=== PATIENT | male | born 1935 | race Caucasian/White ===

== ENCOUNTER 2016-05-26 15:30 | Emergency (ER) | payer OTHER, BC ==
[2016-05-26 15:55] VITALS: TEMP 98.5; BMI 24.2
[2016-05-26] MEDS ORDERED: SODIUM CHLORIDE 500 ML IV STA (17:29)
--- NOTE | 2016-05-26 17:31 | PDOC ---
History of Present Illness - General History Source: Patient - History of Present Illness Initial Comments: 05/26/16 18:59 The patient is a 81 year old male with a significant past medical history of parkinsons disease who presents to the Emergency Department with complaints of cough, cold-like symptoms, and one episode of confusion yesterday. Pt reports experiencing watery cough and nasal congestion for a week. As per his , the patient has been confused and forgetful for weeks, but it has been worse for the past week. She reports unsteady gait yesterday, but she states that the pt could take few steps today without loss of balance. Pt denies fever, chills, sweats, abdominal pain, nausea, vomiting, diarrhea, urinary problems, back pain, dizziness, headache. (+) sick contact: has cold-like symptoms <Kina Berry - Last Filed: 05/26/16 18:59> <Emeterio Manuel - Last Filed: 05/26/16 19:22> - General Chief Complaint: Altered Mental Status Stated Complaint: COUGH, COLD (CONFUSION) Time Seen by Provider: 05/26/16 16:36 Past History <Kina Berry - Last Filed: 05/26/16 18:59> - Past Medical History Cancer: Yes (prostate,skin) Other medical history: parkinson - Surgical History Cholecystectomy: Yes - Immunization History Immunization Up to Date: Yes - Psycho/Social/Smoking Cessation Hx Anxiety: No Suicidal Ideation: No Smoking History: Never smoked Have you smoked in the past 12 months: No Information on smoking cessation initiated: No Hx Alcohol Use: No Drug/Substance Use Hx: No Substance Use Type: None <Emeterio Manuel - Last Filed: 05/26/16 19:22> - Past Medical History Allergies/Adverse Reactions: Allergies Allergy/AdvReac Type Severity Reaction Status Date / Time No Known Allergies Allergy Verified 05/26/16 15:50 Home Medications: Ambulatory Orders Carbidopa/Levodopa [Sinemet 10-100 mg Tablet] 1 each PO ASDIR 05/26/16 Doxazosin Mesylate [Cardura -] 0 mg PO ASDIR 05/26/16 Solifenacin Succinate [Vesicare -] 0 mg PO ASDIR 05/26/16 Review of Systems - Review of Systems Able to Perform ROS?: Yes Comments:: 05/26/16 19:00 CONSTITUTIONAL: No reported: Fever, Chills, Diaphoresis, Generalized Weakness, Malaise, Loss of Appetite HEENT: Yes: nasal congestion No reported: Rhinorrhea, Throat Pain, Throat Swelling, Difficulty Swallowing, Mouth Swelling, Ear Pain, Eye Pain, Visual Changes CARDIOVASCULAR: No reported: Chest Pain, Syncope, Palpitations, Irregular Heart Rate, Lightheadedness, Peripheral Edema RESPIRATORY: Yes: cough No reported: Shortness of Breath, SOB with Exertion, Orthopnea, Wheezing, Stridor, Hemoptysis GASTROINTESTINAL: No reported: Abdominal pain, Abdominal Distension, Nausea, Vomiting, Diarrhea, Constipation, Melena, Hematochezia GENITOURINARY: No reported: Dysuria, Frequency, Urgency, Hesitancy, Flank Pain, Genital Pain MUSCULOSKELETAL: No reported: Myalgia, Arthralgia, Joint Swelling, Back pain, Neck Pain SKIN: No reported: Rash, Itching, Pallor HEMEATOLOGIC/IMMUNOLOGIC: No reported: Easy Bleeding, Easy Bruising, Lymphadenopathy, Frequent infections ENDOCRINE: No reported: Unexplained Weight Gain, Unexplained Weight Loss, Heat Intolerance , Cold Intolerance NEUROLOGIC: Yes: confusion No reported: Headache, Focal Weakness, Paresthesias, Vertigo, Lightheadedness, Unsteady Gait, Seizure, Incontinence PSYCHIATRIC: No reported: Anxiety, Depression All Other Systems: Reviewed and Negative <Kina Berry - Last Filed: 05/26/16 18:59> *Physical Exam - Vital Signs Last Vital Signs Temp Pulse Resp BP Pulse Ox 98.5 F 74 20 105/58 97 05/26/16 15:51 05/26/16 15:51 05/26/16 15:51 05/26/16 15:51 05/26/16 15:51 - Physical Exam Comments: 05/26/16 19:00 GENERAL: The patient is awake, alert, and fully oriented x3, Nontoxic - in no acute distress. HEAD: Normocephalic, atraumatic. EYES: extraocular movements intact, sclera anicteric, conjunctiva clear. ENT: Normal voice, Moist mucous membranes, +nasal congestion NECK: Normal range of motion, supple LUNGS: no acute disress, no wheezing/rhonchi, intermittent spasms of coughing HEART: Regular rate and rhythm, normal S1 and S2 without murmur, rub or gallop. ABDOMEN: Soft, nontender, normoactive bowel sounds. No guarding, no rebound. .No CVA tenderness EXTREMITIES: Normal range of motion, no edema. No clubbing or cyanosis. No cords, erythema, or tenderness. NEUROLOGICAL: Normal speech, strength symemtric in upper/lower extremities, shuffling gait, cn 2-12 intact PSYCH: flat affect SKIN: Warm, Dry, normal turgor, <Kina Berry - Last Filed: 05/26/16 18:59> - Vital Signs Last Vital Signs Temp Pulse Resp BP Pulse Ox 98.5 F 74 20 105/58 97 05/26/16 15:51 05/26/16 15:51 05/26/16 15:51 05/26/16 15:51 05/26/16 15:51 <Emeterio Manuel - Last Filed: 05/26/16 19:22> Heart Score/ECG Review - ECG Impressions Comment:: 05/26/16 19:20 Twelve-lead EKG was performed and reviewed by me. There is normal sinus rhythm with a normal rate. Rate of 69 The intervals are normal. There is normal R wave progression There are no ST or T wave abnormalities. Impression: Normal twelve-lead EKG <Emeterio Manuel - Last Filed: 05/26/16 19:22> ED Treatment Course - LABORATORY CBC & Chemistry Diagram: 05/26/16 17:17 05/26/16 17:17 - ADDITIONAL ORDERS Additional order review: Laboratory Results 05/26/16 05/26/16 18:22 17:17 Sodium 142 Potassium 4.3 Chloride 102 Carbon Dioxide 29 Anion Gap 11 BUN 21 H Creatinine 0.9 Creat Clearance w eGFR > 60 Random Glucose 85 Calcium 8.6 Total Bilirubin 0.4 AST 13 L ALT 11 L Alkaline Phosphatase 36 L Total Protein 6.7 Albumin 3.8 Urine Color Erika Urine Appearance Slcloudy Urine pH 5.0 Ur Specific [place] 1.025 Urine Protein Negative Urine Glucose (UA) Negative Urine Ketones Trace H Urine Blood 2+ H Urine Nitrite Negative Urine Bilirubin Negative Urine Urobilinogen Negative Ur Leukocyte Esterase Negative Urine RBC 168 Urine WBC 1 Ur Epithelial Cells Rare Urine Mucus Few 05/26/16 17:17 Influenza Types A,B Antigen (ROSA) - Final Nasopharyngeal Swab - Final 01/06/17 17:17 RBC 4.14 MCV 95.5 MCHC 32.6 RDW 13.5 MPV 9.3 Neutrophils % 61.6 Lymphocytes % 21.0 Monocytes % 16.4 H Eosinophils % 0.4 Basophils % 0.6 - Medications Given in the ED: ED Medications Discontinued Medications Generic Name Dose Route Start Last Admin Trade Name Lisa PRN Reason Stop Dose Admin Sodium Chloride 500 mls @ 500 mls/hr 05/26/16 17:29 05/26/16 17:36 Normal Saline - IV 05/26/16 18:28 500 mls/hr ASDIR STA Administration <Kina Berry - Last Filed: 05/26/16 18:59> - LABORATORY CBC & Chemistry Diagram: 05/26/16 17:17 05/26/16 17:17 - RADIOLOGY Radiology Studies Ordered: Category Date Time Status HEAD CT WITHOUT CONTRAST [CT] Stat CT Scan 05/26/16 17:29 Ordered CHEST X-RAY PORTABLE* [RAD] Stat Radiology 05/26/16 16:37 Completed <Emeterio Manuel - Last Filed: 05/26/16 19:22> Medical Decision Making - Medical Decision Making 05/26/16 17:36 81y M presenting with cough, ansal congestion and episode of confusion yesterday , though the pts family states he has been having increasing forgetfullness. pt seems back to baseline today. on exam the pt in no acute disress,has mild nasal discharge, pulm exam wnl ?flu, intact neuro exam, mild rigidity and shuffling gait. will ck labs, cxr, ua, ct head will reassess A portion of this note was documented by scribe services under my direction. I have reviewed the details of the note, within reason, and agree with the documentation with the following case summary and management plan written by me 05/26/16 18:58 the pts labs are reviewed unremarkable ua +hematuri but not c'w infection cxr clear influenza negative ct pending 05/26/16 19:15 CT engative will d/c the pt to fu with dr. calhoun for reevaluation and fu of hematuria likely URI/flu like illness. I discussed the physical exam findings, ancillary test results and final diagnoses with the patient. I answered all of the patient's questions. The patient was satisfied with the care received and felt comfortable with the discharge plan and treatment plan. The patient will call their primary care physician within 24 hours to arrange follow-up and will return to the Emergency Department with any new, persistent or worsening symptoms. <Emeterio Manuel - Last Filed: 05/26/16 19:22> *DC/Admit/Observation/Transfer - Attestations Scribe Attestion: 05/26/16 19:01 Documentation prepared by Kina Berry, acting as medical assistant instructor for Emeterio Manuel MD. <Kina Berry - Last Filed: 05/26/16 18:59> - Discharge Dispostion Admit: No <Emeterio Manuel - Last Filed: 05/26/16 19:22> Diagnosis at time of Disposition: Hematuria Upper respiratory infection Qualifiers: URI type: unspecified viral URI Qualified Code(s): J06.9 - Acute upper respiratory infection, unspecified - Discharge Dispostion Disposition: HOME Condition at time of disposition: Improved - Referrals Referrals: Jaya Miller MD [Primary Care Provider] - - Patient Instructions Printed Discharge Instructions: DI for Viral Upper Respiratory Infection -- Adult Additional Instructions: Return to the emergency department immediately with ANY new, persistent or worsening symptoms. There was blood found a new urine please follow-up with Dr. Powell to repeat your urine, if there is persistence bloody urine you may need to see a urologist for further evaluation You MUST call and follow up with your doctor tomorrow for further evaluation of your symptoms. Results were discussed with you. Please make sure your doctor reviews the results of your emergency evaluation. Print Language: BULGARIAN
[2016-05-26 17:35] LABS: BASOPHIL 0.6 % (0-2.0); EOSINOPHIL 0.4 % (0-4.5); MCH 31.2 pg (25.7-33.7); MCHC 32.6 g/dl (32.0-35.9); MEAN CELL VOLUME 95.5 fl (80-96); MEAN PLT VOLUME 9.3 fl (7.5-11.1); NEUTROPHILS 61.6 % (42.8-82.8); PLATELET COUNT 182 K/MM3 (134-434); RDW 13.5 % (11.9-15.9)
[2016-05-26 17:58] LABS: ALBUMIN 3.8 g/dl (3.4-5.0); ANION GAP 11 (8-16); BILIRUBIN,TOTAL 0.4 mg/dL (0.2-1.0); CALCIUM 8.6 mg/dL (8.5-10.1); CO2 29 mmol/L (21-32); CREATININE 0.9 mg/dL (0.7-1.3); GLUCOSE,RANDOM 85 mg/dL (74-106); SGOT/AST 13 U/L (15-37); SGPT/ALT 11 U/L (12-78); TOT PROT 6.7 g/dl (6.4-8.2)
[2016-05-26 17:59] LABS: ALK PHOS 36 U/L (45-117)
[2016-05-26 18:36] LABS: URINE APPEARANCE SLCLOUDY; URINE BILIRUBIN NEGATIVE (NEGATIVE); URINE COLOR AMBER; URINE GLUCOSE (UA) NEGATIVE (NEGATIVE); URINE KETONE TRACE (NEGATIVE); URINE LEUK ESTERASE NEGATIVE (NEGATIVE); URINE NITRITE NEGATIVE (NEGATIVE); URINE PROTEIN NEGATIVE (NEGATIVE); URINE UROBILINOGEN NEGATIVE E.U./dl (0.2-1.0)
[2016-05-26 18:42] LABS: URINE BLOOD 2+ (NEGATIVE)
[2016-05-26 18:46] LABS: URINE MUCUS FEW; URINE RBC 168 /hpf (0-3); URINE WBC 1 /hpf (3-5)
[2016-05-26 19:28] VITALS: BP 113/48; PULSE 82
--- NOTE | 2016-05-27 23:41 | EKG ---
Test Reason : Blood Pressure : / mmHG Vent. Rate : 069 BPM Atrial Rate : 069 BPM P-R Int : 172 ms QRS Dur : 072 ms QT Int : 386 ms P-R-T Axes : 050 -03 025 degrees QTc Int : 413 ms NORMAL SINUS RHYTHM NORMAL ECG WHEN COMPARED WITH ECG OF 20-SEP-2002 08:47, QUESTIONABLE CHANGE IN QRS AXIS Confirmed by ZEFERINO SILVA MD ([id number]) on 05/27/2016 11:40:35 PM Referred By: Confirmed By:ZEFERINO SILVA MD
== END 2016-05-26 19:28 | disposition home or self-care (01) ==
LOC: SUPCPDRO 15:30 → JER 15:30
PROC: 3E0337Z Introduction of Electrolytic and Water Balance Substance into Peripheral Vein, Percutaneous Approach (ICD-10-PCS; principal; 2016-05-26)
DX: J06.9 Acute upper respiratory infection, unspecified (principal); R31.9 Hematuria, unspecified; G20 Parkinson's disease
CPT/HCPCS: 36415; 70450-TC; 71010-TC; 80053; 81003; 81015; 85025; 87804; 93005; 93010; 96360; 99283-25

== ENCOUNTER 2016-06-02 18:21 | Inpatient (IN) | payer OTHER, BC ==
--- NOTE | 2016-06-02 19:36 | PDOC ---
History of Present Illness - General Chief Complaint: Injury Stated Complaint: FALL Time Seen by Provider: 06/02/16 19:21 - History of Present Illness Initial Comments: 06/02/16 19:35 CHIEF COMPLAINT: fall HISTORY OF PRESENT ILLNESS: 81 yo M with hx of Parkinson's presents to ED s/p fall outside of his home today. Per patient family, he has been a little confused and more prone to falling in recent weeks. He was walking behind his into his house today and fell on the sidewalk. Patient states he did not lose consciousness, but is unsure of whether or not he hit his head. He states that "I was calling for help for a long time before someone was able to come help me into the house." He is unable to describe where his pain is, but repeatedly motions to his left thigh. He denies any dizziness, nausea, vomiting , shortness of breath, or chest pain. No recent travel or sick contacts. PAST MEDICAL HISTORY: Parkinson's FAMILY HISTORY: Denies SOCIAL HISTORY: Lives at home with family. Denies tobacco, alcohol, illicit drug use. SURGICAL HISTORY: Denies ALLERGIES: No known drug allergies REVIEW OF SYSTEMS - patient is poor historian General/Constitutional: Denies fever or chills. Denies weakness, weight change. HEENT: Denies change in vision. Denies ear pain or discharge. Denies sore throat. Cardiovascular: Denies chest pain or shortness of breath. Respiratory: Denies cough, wheezing, or hemoptysis. Gastrointestinal: Denies nausea, vomiting, diarrhea or constipation. Denies rectal bleeding. Genitourinary: Denies dysuria, frequency, or change in urination. Musculoskeletal: Patient constantly motions to L thigh. Skin and breasts: Denies rash or easy bruising. Neurologic: Denies headache, vertigo, loss of consciousness, or loss of sensation. PHYSICAL EXAM General Appearance: Well-appearing, appropriately dressed. No apparent distress. HEENT: EOMI, PERRLA, normal ENT inspection, normal voice, TMs normal, pharynx normal. No conjunctival pallor. No photophobia, scleral icterus. Neck: Supple. Trachea midline. No tenderness, rigidity, carotid bruit, stridor , lymphadenopathy, or thyromegaly. Respiratory/Chest: Lungs CTAB. No shortness of breath, chest tenderness, respiratory distress, accessory muscle use. No crackles, rales, rhonchi, stridor , wheezing, dullness Cardiovascular: RRR. S1, S2. No JVD, murmur, bradycardia, tachycardia. Vascular Pulses: Dorsalis-Pedis (R): 2+, Dorsalis-Pedis (L): 2+ Gastrointestinal/Abdominal: Normal bowel sounds. Abdomen soft, non-distended. No tenderness or rebound tenderness. No organomegaly, pulsatile mass, guarding , hernia, hepatomegaly, splenomegaly. Lymphatic: No adenopathy, tenderness. Musculoskeletal/Extremities: Tenderness to left hip, limited ROM secondary to pain. Normal inspection. FROM of all extremities, normal capillary refill. Pelvis Stable. No CVA tenderness. No tenderness to extremities, pedal edema, swelling, erythema or deformity. Integumentary: Appropriate color, dry, warm. No cyanosis, erythema, jaundice or rash Neurologic: community resource officer II-XII intact. Fully oriented, alert. Appropriate mood/affect. No appreciable EOM palsy, facial droop or sensory deficit. Motor strength 5/5 to upper extremities bilaterally. LLE strength 3/5, secondary to pain. Limited ROM. RLE strength 4/5. 06/02/16 23:01 Past History - Past Medical History Allergies/Adverse Reactions: Allergies Allergy/AdvReac Type Severity Reaction Status Date / Time No Known Allergies Allergy Verified 06/02/16 18:23 Home Medications: Ambulatory Orders Aspirin [ASA -] 81 mg PO DAILY 06/02/16 Carbidopa/Levodopa 25/100 [Sinemet 25/100 -] 1.5 each PO TID 06/02/16 Solifenacin Succinate [VESIcare] 10 mg PO HS 06/02/16 Cancer: Yes (prostate,skin) Other medical history: PARKINSON - Surgical History Cholecystectomy: Yes - Immunization History Immunization Up to Date: Yes - Psycho/Social/Smoking Cessation Hx Anxiety: No Suicidal Ideation: No Smoking History: Never smoked Have you smoked in the past 12 months: No Information on smoking cessation initiated: No Hx Alcohol Use: No Drug/Substance Use Hx: No Substance Use Type: None *Physical Exam - Vital Signs Last Vital Signs Temp Pulse Resp BP Pulse Ox 97.5 F L 82 18 133/71 96 06/02/16 18:23 06/02/16 18:23 06/02/16 18:23 06/02/16 18:23 06/02/16 18:23 ED Treatment Course - LABORATORY CBC & Chemistry Diagram: 06/02/16 20:15 06/02/16 20:15 Medical Decision Making - Medical Decision Making 06/02/16 22:39 81 yo M with hx of Parkinson's BIBEMS s/p fall. -CXR, EKG -Head and C-spine CT -Left hip & pelvis, L knee x-ray -CBC, CMP CXR indicates slightly displaced fracture to lateral arch of left 7th and probably lateral arch of left 8th rib. Small left pleural effusion. Read by: Dharmesh Neff MD Hip & Pelvis X-ray: Left intertrochanteric fracture with displacement and superior angulation. There is likely avulsion of the lesser trochanter. Read by Dharmesh Neff MD. Head and C-spine results negative for acute pathology. Will admit for hip fracture. Discussed case with admitting MD Courtney. Will admit to med/surg per Dr. Courtney. Discussed case with on-call orthopedic MD Marrufo. Dr. Marrufo states if surgery is required, will most likely be Sunday, so NPO not required at this time. *DC/Admit/Observation/Transfer Diagnosis at time of Disposition: Pleural effusion Fracture of trochanter of left femur Qualifiers: Encounter type: initial encounter Fracture type: closed Qualified Code(s): S72.102A - Unspecified trochanteric fracture of left femur, initial encounter for closed fracture Ribs, multiple fractures Qualifiers: Encounter type: initial encounter Fracture type: closed Laterality: left Qualified Code(s): S22.42XA - Multiple fractures of ribs, left side, initial encounter for closed fracture - Discharge Dispostion Admit: Yes - Referrals Referrals: Jaya Miller MD [Primary Care Provider] -
[2016-06-02] MEDS ORDERED: OXYCODONE/APAP 5/325MG COMBO TABLET PO ONE (19:48)
[2016-06-02] MEDS ORDERED: OXYCODONE/APAP 5/325MG COMBO TABLET ONE (19:53)
--- NOTE | 2016-06-02 20:10 | PDOC ---
*Physical Exam - Vital Signs Last Vital Signs Temp Pulse Resp BP Pulse Ox 97.5 F L 82 18 133/71 96 06/02/16 18:23 06/02/16 18:23 06/02/16 18:23 06/02/16 18:23 06/02/16 18:23 ED Treatment Course - LABORATORY CBC & Chemistry Diagram: 06/07/16 06:30 06/07/16 06:30 - Medications Given in the ED: ED Medications Discontinued Medications Generic Name Dose Route Start Last Admin Trade Name Freq PRN Reason Stop Dose Admin Oxycodone/Acetaminophen 2 combo 06/02/16 19:48 06/02/16 19:59 Percocet 5/325 - PO 06/02/16 19:49 2 combo ONCE ONE Administration Medical Decision Making - Medical Decision Making 06/02/16 20:09 Pt seen by the Advanced Practice Provider under my direct supervision Ancillary studies reviewed I agree with plan as outlined by the Advanced Practice Provider CARMELINA Foster *DC/Admit/Observation/Transfer Diagnosis at time of Disposition: Fracture of trochanter of left femur, Ribs, multiple fractures, Pleural effusion
[2016-06-02 20:26] LABS: BASOPHIL 0.3 % (0-2.0); EOSINOPHIL 0.6 % (0-4.5); MCH 30.8 pg (25.7-33.7); MCHC 32.7 g/dl (32.0-35.9); MEAN CELL VOLUME 94.2 fl (80-96); MEAN PLT VOLUME 8.6 fl (7.5-11.1); NEUTROPHILS 86.4 % (42.8-82.8); PLATELET COUNT 292 K/MM3 (134-434); RDW 13.5 % (11.9-15.9); WHITE BLOOD COUNT 12.4 K/mm3 (4.0-10.0)
[2016-06-02 20:57] LABS: ALBUMIN 3.8 g/dl (3.4-5.0); ANION GAP 5 (8-16); BILIRUBIN,TOTAL 0.7 mg/dL (0.2-1.0); CALCIUM 8.8 mg/dL (8.5-10.1); CO2 28 mmol/L (21-32); CREATININE 0.8 mg/dL (0.7-1.3); GLUCOSE,RANDOM 119 mg/dL (74-106); SGOT/AST 18 U/L (15-37); SGPT/ALT 15 U/L (12-78)
[2016-06-02 20:58] LABS: ALK PHOS 42 U/L (45-117); TOT PROT 6.9 g/dl (6.4-8.2)
[2016-06-02] MEDS ORDERED: morphine CARPU-JECT 2 MG/1 ML DISP.SYRIN IVPUSH ONE (22:01)
[2016-06-02] MEDS ORDERED: KETOROLAC TROMETHAMINE 30 MG/1 ML VIAL IVPUSH ONE (22:10)
[2016-06-02] MEDS ORDERED: ACETAMINOPHEN 325 MG TABLET (FP) PO PRN (22:30)
[2016-06-02] MEDS ORDERED: morphine CARPU-JECT 2 MG/1 ML DISP.SYRIN IVPUSH PRN (22:30)
[2016-06-02] MEDS ORDERED: oxyCODONE HCL 5 MG TABLET PO PRN (22:30)
[2016-06-02] MEDS ORDERED: ONDANSETRON 4 MG/2 ML VIAL IVPB PRN (22:30)
[2016-06-02] MEDS ORDERED: KETOROLAC TROMETHAMINE 30 MG/1 ML VIAL ONE (23:25)
[2016-06-02] MEDS: SODIUM CHLORIDE 1,000 ML IV SCH (23:34)
[2016-06-03 00:55] VITALS: BMI 20.2
--- NOTE | 2016-06-03 07:49 | PN ---
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 (short form) - Note 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: SEE H&P DICTATED / S/P FALL GETTING OUT OF CAR / WORSENING PARKINSON'S <> FX LT HIP / FX RIBS PMH <> PAF <> D/KRISTY XARELTO ON OWN <> REFUSED TO TAKE / ON ASA 81 MG OD. B12 DEF PARKINSON'S DISEASE / ON SINEMET. HY OF RT ANKLE FX <> S/P ORIF. HY OF PROSTATE CA. AWAIT CARDIUOLOGY EVAL & CLEARANCE / NO MEDICAL CONTRAINDICATIONS TO SURGERY.
[2016-06-03 08:50] LABS: BASOPHIL 0.3 % (0-2.0); EOSINOPHIL 0.9 % (0-4.5); MCH 32.1 pg (25.7-33.7); MEAN CELL VOLUME 94.6 fl (80-96); MEAN PLT VOLUME 8.9 fl (7.5-11.1); NEUTROPHILS 77.6 % (42.8-82.8); PLATELET COUNT 244 K/MM3 (134-434); RDW 13.1 % (11.9-15.9); WHITE BLOOD COUNT 9.9 K/mm3 (4.0-10.0)
--- NOTE | 2016-06-03 08:55 | HP ---
DATE OF ADMISSION: 06/02/2016 HISTORY OF PRESENT ILLNESS: This is a 81-year-old male who fell getting out of his car yesterday evening, going into his home, tripped, and came to the emergency room because he could not get up. In the emergency room, he was evaluated with x- rays that showed a left intertrochanteric fracture of the hip and fractures of the 7th and 8th left ribs. Patient was in the emergency room about a week ago with a bronchitis history and also a history of balance disturbance, etc. He had been in my office yesterday evening with no complaints and was being evaluated for worsening Parkinson's disease and periods of mental confusion. He was found to be awake, alert, received the flu vaccine and B12 injection in the office. He ambulated freely into the office and out of the office with shuffle gait. His Parkinson's has been worsening according to his , and he was scheduled to see his neurologist, Dr. Nunez, next week. On arriving home, patient supposedly tripped getting out of the car, fell, fractured his left hip and left ribs. He is presently on awaiting surgical and cardiology evaluation. He is awake. He is oriented x3. He claims no distress. He has left hip pain. No chest pain, shortness of breath, or palpitations. PAST MEDICAL HISTORY: B12 deficiency, paroxysmal atrial fibrillation (refusing anticoagulation, on aspirin therapy), history of fractured right ankle status post open reduction internal fixation, history of prostate ca / BPH. ALLERGIES: No known allergies to medications or food. SOCIAL HISTORY: He lives at home with his . He is a [id number]. No EtOH. MEDICATION LIST: 1. Sinemet 25/100 t.i.d. 2. Cardura 2 mg once daily. 3. Ecotrin 81 mg once daily. 4. Vesicare 5 mg once daily. REVIEW OF SYSTEMS: No headache. No sinus pain. No dizziness. No neck pain, no neck stiffness. No chest pain, shortness of breath, palpitations. No cough. No hemoptysis. No wheezing. No abdominal pain. No nausea. No vomiting. No dysuria, urgency, or frequency. Left hip pain claimed. Left rib pain claimed. PHYSICAL EXAMINATION: General: Awake and oriented x3. Vital signs: Temperature 98, blood pressure 138/72, respirations 18, heart rate 80 and regular. Head, ears, eyes, nose, and throat: Neck supple. Carotids 2+. No bruits auscultated. Chest: Clear to percussion auscultation. No adventitial sounds noted. Cardiac: S1, S2, normal sinus rhythm. No murmurs or gallops auscultated. Abdomen: Soft, nontender. No rebound, no guarding. No hepatosplenomegaly. Extremities: Left leg is shortened and externally rotated. Neurologic: He has resting tremors of the hands. He has a masked facies. In office, he was noted to have bradykinesia / shuffle gait. IMPRESSION AT THIS TIME: 1. Status post fall with fracture of the left 7th and 8th ribs and fracture of the left hip. 2. Parkinson's disease. 3. B12 deficiency. 4. History of prostate cancer. 5. History of prior right ankle fracture status post open reduction internal fixation. 6. Sinusitis PLAN AT THIS TIME: 1. CT scan of the head showed possible sinusitis, chronic versus acute. I will start Augmentin therapy and have ENT, Dr. Kee, evaluate it. 2. Orthopedics have not evaluated the patient yet. He is being maintained n.p.o. for possible open reduction internal fixation of the left hip. 3. I will ask Cardiology to evaluate patient preoperatively with history of paroxysmal atrial fibrillation off anticoagulation therapy. 4. I have requested neurology consult from Dr. Styles with worsening Parkinson 's on Sinemet therapy. 5. Continue Cardura with his history of BPH, prostate CA, and continue Vesicare. ROSELIA MORAN M.D. [id number] MTDD
[2016-06-03 09:04] LABS: INR 1.25 (0.82-1.09); PROTHROMBIN TIME (PATIENT) 13.8 SEC (9.98-11.88)
[2016-06-03 09:26] LABS: CALCIUM 8.4 mg/dL (8.5-10.1); CREATININE 0.9 mg/dL (0.7-1.3); PHOSPHOROUS 3.5 mg/dL (2.5-4.9)
[2016-06-03] MEDS: SOLIFENACIN SUCCINATE 5 MG TAB (FP) PO SCH (09:30)
[2016-06-03] MEDS: AMOX TR/POT CLAV 875MG/125MG TABLETS (FP) PO SCH ×2 (09:30→16:38)
[2016-06-03] MEDS: POLYETHYLENE GLYCOL 3350 119 GM BTL PO SCH (09:30)
[2016-06-03] MEDS: DOCUSATE SODIUM 100 MG CAPSULE (FP) PO SCH ×2 (09:30→21:33)
[2016-06-03] MEDS: PANTOPRAZOLE 40 MG TABLET (FP) PO SCH (09:30)
--- NOTE | 2016-06-03 09:38 | PN ---
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 (short form) - Note 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: Pt seen and examined. He is a 81 yo M pt 1 day s/p fall, with c/o pain in the left hip. AVSS PE L LE is grossly NVI. He is holding it in a position of external rotation and shortening. + pain with axial load, rotation, or pressure over the pelvis. Xrays Show a displaced left femur high intertrochanteric fracture. Imp 1 day s/p fall, with an acute IT fx of the left hip. Rec Medical clearance. NPO after midnight tonight. To OR tomorrow morning for a left femur Gamma Nail
[2016-06-03] MEDS ORDERED: ENOXAPARIN NA (PORCINE) 40 MG/0.4 ML DISP.SYRIN SQ SCH (10:00)
[2016-06-03 10:33] LABS: URINE APPEARANCE CLEAR; URINE BILIRUBIN NEGATIVE (NEGATIVE); URINE COLOR YELLOW; URINE GLUCOSE (UA) NEGATIVE (NEGATIVE); URINE KETONE TRACE (NEGATIVE); URINE LEUK ESTERASE NEGATIVE (NEGATIVE); URINE NITRITE NEGATIVE (NEGATIVE); URINE PROTEIN NEGATIVE (NEGATIVE); URINE UROBILINOGEN 2.0 E.U/dl E.U./dl (0.2-1.0)
[2016-06-03 10:41] LABS: URINE BLOOD 1+ (NEGATIVE)
[2016-06-03] MEDS: DOXAZOSIN MESYLATE 2 MG TABLET (FP) PO SCH (10:41)
[2016-06-03 10:53] LABS: URINE HYALINE CAST 1 /lpf; URINE MUCUS RARE; URINE RBC 16 /hpf (0-3); URINE WBC 1 /hpf (3-5)
--- NOTE | 2016-06-03 11:27 | CONSULT ---
Consult - text type - Consultation Consultation Note: Neurology CHIEF COMPLAINT: fall HISTORY OF PRESENT ILLNESS: 81 yo M with hx of Parkinson's presents to ED s/p fall outside of his home. Per patient family and nurse, he has been having ongoing confusion. He takes Sinemet for Parkinson's and medication list indicated 25/100mg, one tablet, three times daily. In recent weeks, he has been having falls and unclear if Parkinson's dosing is adequate at this time. He was walking behind his into his house and fell on the sidewalk. Patient states he did not lose consciousness, but is unsure of whether or not he hit his head. He completed imaging within the ER and demonstrated CXR with slightly displaced fracture to lateral arch of left 7th and probably lateral arch of left 8th rib. Small left pleural effusion. Hip & Pelvis X-ray showed Left intertrochanteric fracture with displacement and superior angulation. There is likely avulsion of the lesser trochanter. Head and C-spine results negative for acute pathology and no bleed. There was degenerative changes but no fractures or subluxations. Past History PAST MEDICAL HISTORY: Parkinson's FAMILY HISTORY: Denies SOCIAL HISTORY: Lives at home with family. Denies tobacco, alcohol, illicit drug use. ALLERGIES: No known drug allergies - Surgical History Cholecystectomy: Yes - Immunization History Immunization Up to Date: Yes - Psycho/Social/Smoking Cessation Hx Anxiety: No Suicidal Ideation: No Smoking History: Never smoked Have you smoked in the past 12 months: No Information on smoking cessation initiated: No Hx Alcohol Use: No Drug/Substance Use Hx: No Substance Use Type: None Allergies Allergy/AdvReac Type Severity Reaction Status Date / Time No Known Allergies Allergy Verified 06/02/16 18:23 Home Medications: Ambulatory Orders Aspirin [ASA -] 81 mg PO DAILY 06/02/16 Carbidopa/Levodopa 25/100 [Sinemet 25/100 -] 1.5 each PO TID 06/02/16 Solifenacin Succinate [VESIcare] 10 mg PO HS 06/02/16 REVIEW OF SYSTEMS - patient is poor historian General/Constitutional: Denies fever or chills. Denies weakness, weight change. HEENT: Denies change in vision. Denies ear pain or discharge. Denies sore throat. Cardiovascular: Denies chest pain or shortness of breath. Respiratory: Denies cough, wheezing, or hemoptysis. Gastrointestinal: Denies nausea, vomiting, diarrhea or constipation. Denies rectal bleeding. Genitourinary: Denies dysuria, frequency, or change in urination. Musculoskeletal: Patient constantly motions to L thigh. Skin and breasts: Denies rash or easy bruising. Neurologic: Denies headache, vertigo, loss of consciousness, or loss of sensation. *Physical Exam - Vital Signs Last Vital Signs Temp Pulse Resp BP Pulse Ox 97.5 F L 82 18 133/71 96 06/02/16 18:23 06/02/16 18:23 06/02/16 18:23 06/02/16 18:23 06/02/16 18:23 PHYSICAL EXAM General Appearance: Well-appearing, appropriately dressed. No apparent distress. HEENT: EOMI, PERRLA, normal ENT inspection, normal voice, TMs normal, pharynx normal. No conjunctival pallor. No photophobia, scleral icterus. Neck: Supple. Trachea midline. No tenderness, rigidity, carotid bruit, stridor , lymphadenopathy, or thyromegaly. Respiratory/Chest: Lungs CTAB. No shortness of breath, chest tenderness, respiratory distress, accessory muscle use. No crackles, rales, rhonchi, stridor , wheezing, dullness Cardiovascular: RRR. S1, S2. No JVD, murmur, bradycardia, tachycardia. Vascular Pulses: Dorsalis-Pedis (R): 2+, Dorsalis-Pedis (L): 2+ Gastrointestinal/Abdominal: Normal bowel sounds. Abdomen soft, non-distended. No tenderness or rebound tenderness. No organomegaly, pulsatile mass, guarding , hernia, hepatomegaly, splenomegaly. Lymphatic: No adenopathy, tenderness. Musculoskeletal/Extremities: Tenderness to left hip, limited ROM secondary to pain. Normal inspection. FROM of all extremities, normal capillary refill. Pelvis Stable. No CVA tenderness. No tenderness to extremities, pedal edema, swelling, erythema or deformity. Neurologic: shield runner II-XII intact. Fully oriented, alert. Appropriate mood/affect. No appreciable EOM palsy, facial droop or sensory deficit. Strength 5/5 to upper extremities bilaterally. LLE strength 3/5, secondary to pain. Limited ROM. RLE strength 4/5. CBCD WBC 9.9 K/mm3 (4.0-10.0) 06/03/16 07:25 RBC 3.43 M/mm3 (4.00-5.60) L 06/03/16 07:25 Hgb 11.0 GM/dL (11.7-16.9) L D 06/03/16 07:25 Hct 32.5 % (35.4-49) L D 06/03/16 07:25 MCV 94.6 fl (80-96) 06/03/16 07:25 MCHC 34.0 g/dl (32.0-35.9) 06/03/16 07:25 RDW 13.1 % (11.9-15.9) 06/03/16 07:25 Plt Count 244 K/MM3 (134-434) 06/03/16 07:25 MPV 8.9 fl (7.5-11.1) 06/03/16 07:25 CMP Sodium 142 mmol/L (136-145) 06/03/16 07:25 Potassium 4.5 mmol/L (3.5-5.1) 06/03/16 07:25 Chloride 110 mmol/L (98-107) H 06/03/16 07:25 Carbon Dioxide 28 mmol/L (21-32) 06/03/16 07:25 Anion Gap 4 (8-16) L 06/03/16 07:25 BUN 36 mg/dL (7-18) H 06/03/16 07:25 Creatinine 0.9 mg/dL (0.7-1.3) 06/03/16 07:25 Creat Clearance w eGFR > 60 (>60) 06/02/16 20:15 Calcium 8.4 mg/dL (8.5-10.1) L 06/03/16 07:25 Total Bilirubin 0.7 mg/dL (0.2-1.0) D 06/02/16 20:15 AST 18 U/L (15-37) D 06/02/16 20:15 ALT 15 U/L (12-78) D 06/02/16 20:15 Alkaline Phosphatase 42 U/L (45-117) L 06/02/16 20:15 Total Protein 6.9 g/dl (6.4-8.2) 06/02/16 20:15 Albumin 3.8 g/dl (3.4-5.0) 06/02/16 20:15 Plan 81 yo M with hx of Parkinson's presents to ED s/p fall outside of his home. Per patient family and nurse, he has been having ongoing confusion. He takes Sinemet for Parkinson's and medication list indicated 25/100mg, one tablet, three times daily. He has been having falls and unclear if Parkinson's dosing is adequate at this time. Will increase to four times a day of Sinemet of same dose. CXR with slightly displaced fracture to lateral arch of left 7th and probably lateral arch of left 8th rib. Hip & Pelvis X-ray showed Left intertrochanteric fracture with displacement and superior angulation. Plan is for surgical intervention tomorrow, defer to Orthopedics Head and C-spine results negative for acute pathology and no bleed. There was degenerative changes but no fractures or subluxations. Pain control, though confused this morning possibly due to morphine, monitor mental status. Given age, may benefit from lower potentcy narcotics (percocept, tramadol) Outpatient workup for confusion when patient's acute injuries are treated and not requiring significant pain medication, difficult to guage mental status with ongoing pain and treatment
[2016-06-03] MEDS: CARBIDOPA/LEVODOPA 25/100 TABLET (FP) PO SCH ×3 (13:00→21:33)
--- NOTE | 2016-06-03 13:07 | CONSULT ---
Cardiology Consult (text) - Consultation Consultation Note: Cardiology (Dr. De La Torre covering Dr. Miner) Patient seen and examined 81 yo male with Parkinsons Disease Poor historian, family not present when interviewed Per chart has a h/o paroxysmal Afib but he denies, Not on AC.was previously on Riveroxaban but self discontinued. No reported h/o DM, HTN, HPL or known CAD/CVD. No prior CVA Denies exertional or rest chest pain or dyspnea Now s/p left trochanteric fracture after getting out of car that will require surgical repair Was recently seen at [facility] for increased falls Meds: Asa 81mg daily Sinemet 25/100 Vesicare 10mg daily Exam: BP 149/74mmHg, P 88/min, Afebrile Normal JVP lying flat, no CHF Regular rate, no murmurs Lungs are clear bilaterally No Edema ECG: Baseline artifact NSR at 86/min with no ST changes or prior infarct pattern Hgb 11.0, Plt 244,000 BUN/Cr 36/0.9, ECG (05/26/2015) NSR without ischemic changes IMP/Plan: 81 yo male with left trochanteric fracture Has PAF but in NSR now on aspirin He is optimized from CV perspective to undergo this necessary surgery Monitor post-op for AFib (does not need telemetry) Continue aspirin 81mg daily
[2016-06-03] MEDS ORDERED: CARBIDOPA/LEVODOPA 25/100 TABLET (FP) PO SCH (14:00)
--- NOTE | 2016-06-03 16:14 | EKG ---
Test Reason : Blood Pressure : / mmHG Vent. Rate : 085 BPM Atrial Rate : 085 BPM P-R Int : 170 ms QRS Dur : 072 ms QT Int : 374 ms P-R-T Axes : 056 035 053 degrees QTc Int : 445 ms NORMAL SINUS RHYTHM NORMAL ECG WHEN COMPARED WITH ECG OF 02-JUN-2016 20:08, NO SIGNIFICANT CHANGE WAS FOUND Confirmed by JOSE M MICHELLE MD ([id number]) on 06/03/2016 4:13:52 PM Referred By: Pradeep CHINO Confirmed By:JOSE M MICHELLE MD
--- NOTE | 2016-06-03 16:21 | EKG ---
Test Reason : Blood Pressure : / mmHG Vent. Rate : 086 BPM Atrial Rate : 086 BPM P-R Int : 164 ms QRS Dur : 070 ms QT Int : 380 ms P-R-T Axes : 047 021 028 degrees QTc Int : 454 ms POOR DATA QUALITY, INTERPRETATION MAY BE ADVERSELY AFFECTED NORMAL SINUS RHYTHM NONSPECIFIC ST ABNORMALITY ABNORMAL ECG WHEN COMPARED WITH ECG OF 26-MAY-2016 17:03, NO SIGNIFICANT CHANGE WAS FOUND Confirmed by JOSE M MICHELLE MD ([id number]) on 06/03/2016 4:20:32 PM Referred By: Confirmed By:JOSE M MICHELLE MD
--- NOTE | 2016-06-03 18:17 | CONSULT ---
Consult Consult Specialty:: Otolaryngology - History of Present Illness History of Present Illness: 81M with Parkinson's Disease hospitalized s/p fall with orthopedic injuries for which he is being considered for surgery. During CT Head, he was noted to have some sinus inflammation and OHNS consulted. The patient and his family report that he's had a 'head cold' with congestion and rhinorrhea for the last 7-10 days, but otherwise generally does not have much in the way of sinonasal problems. No recurrent infections, chronic congestion, rhinorrhea, postnasal drip, epistaxis, sinus pains/pressures, vision changes, facial numbness. He has been started on augmentin. 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 - Alcohol/Substance Use Hx Alcohol Use: No - Smoking History Smoking history: Never smoked Have you smoked in the past 12 months: No Home Medications - Allergies Allergies/Adverse Reactions: Allergies Allergy/AdvReac Type Severity Reaction Status Date / Time No Known Allergies Allergy Verified 06/02/16 18:23 - Home Medications Home Medications: Ambulatory Orders Aspirin [ASA -] 81 mg PO DAILY 06/02/16 Carbidopa/Levodopa 25/100 [Sinemet 25/100 -] 1.5 each PO TID 06/02/16 Solifenacin Succinate [VESIcare] 10 mg PO HS 06/02/16 Review of Systems - Review of Systems HENT: reports: Nasal Congestion Physical Exam Vital Signs: Vital Signs Temperature 98.2 F 06/03/16 13:39 Pulse Rate 88 06/03/16 13:39 Respiratory Rate 17 06/03/16 13:39 Blood Pressure 149/74 06/03/16 08:00 O2 Sat by Pulse Oximetry (%) 97 06/03/16 09:00 Constitutional: Yes: No Distress, Other (confused, somewhat cooperative with exam) Eyes: Yes: WNL HENT: Yes: Other (ears: canals occluded by hair, wax; nose: clear to ant rhinoscopy; mouth: mod dentition. MMM. No gross masses/lesions.) Neck: Yes: WNL Neurological: Yes: Other (limited. EOMI grossly. CN7,12 intact.) Labs: CBC, BMP 06/03/16 07:25 06/03/16 07:25 Imaging - Results Cat Scan: Image Reviewed (CT Head reviewed. Has inferior maxillary sinus mucosal thickening, mild-mod, bilaterally. Scattered bilateral ethmoid sinus thickening; partial R frontal sinus thickening, partly aerated.) Other: Other (Nasal Endoscopy Disc rbla with pt, family at bedside. They consent. Endoscope passed bilateral nasal cavities, withdrawn. Findings: 1. Mild deviated nasal septum 2. Inf turb hypertrophy 3+ bilaterally 3. Narrow middle meati though clear of purulence 4. Unable to visualize sup turbinates 5. Sphenoethmoidal recesses clear) Problem List - Problems (1) Maxillary sinusitis, acute Assessment/Plan: Finish course of antibiotics Nasal endoscopy shows likely resolving sinusitis As not frequently recurrent, do not recommend any further intervention He may follow up as an outpatient if there are any further issues. Thank you for this consultation. Code(s): J01.00 - ACUTE MAXILLARY SINUSITIS, UNSPECIFIED
[2016-06-03] MEDS: SODIUM CHLORIDE 1,000 ML IV SCH (23:20)
--- NOTE | 2016-06-04 07:55 | PN ---
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 (short form) - Note 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: PATIENT EVALUATED IN RECOVERY ROOM AWAITING SURGERY <> SEDATED / IN NO DISTRESS / FAMILY AT BEDSIDE. Selected Entries 06/04/16 06:00 Temperature 99.2 F Pulse Rate 83 Respiratory 18 Rate Blood Pressure 140/76 Laboratory Tests 06/03/16 06/03/16 07:25 07:25 WBC 9.9 RBC 3.43 L Hgb 11.0 L D Hct 32.5 L D Plt Count 244 Sodium 142 Potassium 4.5 Chloride 110 H Carbon Dioxide 28 Anion Gap 4 L BUN 36 H Creatinine 0.9 P/E <> NECK SUPPLE / CAROTIDS <> NO BRUITS. COR <> S 1 / S 2 <> NO M / NO GALLOPS CHEST <> FEW SCATTERED RHONCHI AT BASES ABD <> SOFT / NON TENDER / NO HSM EXT <> LEFT LEG EXT ROTATED AND SHORTENED. IMP >< S/P FALL / LEFT HIP FX / LEFT 7 / 8 RIB FX PARKINSONS PROSTATE CA SINUSITIS ON AB RX. B 12 DEF. PAF <> NOW IN NSR / REFUSED A/C PLAN : TO OR TODAY HIP REPAIR MEDICALLY STABLE. FOLLOW POST OP LABS. NEURO FOLLOWUP POST OP CARDIOLOGY FOLLOWUP POSY-OP
[2016-06-04] MEDS: AMOX TR/POT CLAV 875MG/125MG TABLETS (FP) PO SCH ×2 (08:05→17:25)
[2016-06-04] MEDS ORDERED: ceFAZolin SODIUM 1 GM VIAL ONE (08:58)
[2016-06-04] MEDS ORDERED: ceFAZolin SODIUM 1 GM VIAL IVPB ONE (09:00)
[2016-06-04] MEDS ORDERED: MIDAZOLAM HCL 2 MG/2 ML SINGLE DOSE VIAL ONE (09:11)
[2016-06-04] MEDS ORDERED: LACTATED RINGERS SOLUTION 1,000 ML IV SCH ×2 (10:00→10:16)
--- NOTE | 2016-06-04 10:10 | OP ---
Operative Note - Note: Operative Date: 06/04/16 Pre-Operative Diagnosis: left hip femur intertrochanteric fracture Operation: left Gamma Nail, intramedullary nail Implants: Amanda Gamma-3 titanium nail, 95mm lag screw, 35mm distal locking screw Surgeon: Gera Marrufo Anesthesiologist/ANSWERER: Geeta Sawyer Anesthesia: Spinal Estimated Blood Loss (mls): 75 Blood Volume Replaced (mls): 0 Fluid Volume Replaced (mls): 1,000 Operative Report Dictated: Yes
[2016-06-04] MEDS: DOXAZOSIN MESYLATE 2 MG TABLET (FP) PO SCH (10:13)
[2016-06-04] MEDS: DOCUSATE SODIUM 100 MG CAPSULE (FP) PO SCH ×2 (10:13→21:50)
[2016-06-04] MEDS: PANTOPRAZOLE 40 MG TABLET (FP) PO SCH (10:14)
[2016-06-04] MEDS: POLYETHYLENE GLYCOL 3350 119 GM BTL PO SCH (10:14)
[2016-06-04] MEDS: CARBIDOPA/LEVODOPA 25/100 TABLET (FP) PO SCH ×4 (10:14→21:50)
[2016-06-04] MEDS: SOLIFENACIN SUCCINATE 5 MG TAB (FP) PO SCH (10:15)
[2016-06-04] MEDS ORDERED: morphine CARPU-JECT 2 MG/1 ML DISP.SYRIN IVPUSH PRN (10:16)
[2016-06-04] MEDS ORDERED: oxyCODONE HCL 5 MG TABLET PO PRN (10:16)
[2016-06-04] MEDS ORDERED: ONDANSETRON 4 MG/2 ML VIAL IVPB PRN (10:16)
[2016-06-04] MEDS ORDERED: PT OWN MED DRAWER 7, Y5N ONE (10:17)
[2016-06-04] MEDS: SODIUM CHLORIDE 1,000 ML IV SCH ×2 (11:00→22:00)
--- NOTE | 2016-06-04 13:06 | PN ---
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 (short form) - Note 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: Neurology HISTORY OF PRESENT ILLNESS: 81 yo M with hx of Parkinson's presents to ED s/p fall outside of his home. Per patient family and nurse, he has been having ongoing confusion. He takes Sinemet for Parkinson's and medication list indicated 25/100mg, one tablet, three times daily. In recent weeks, he has been having falls and unclear if Parkinson's dosing is adequate at this time. He was walking behind his into his house and fell on the sidewalk. Patient states he did not lose consciousness, but is unsure of whether or not he hit his head. He completed imaging within the ER and demonstrated CXR with slightly displaced fracture to lateral arch of left 7th and probably lateral arch of left 8th rib. Small left pleural effusion. Hip & Pelvis X-ray showed Left intertrochanteric fracture with displacement and superior angulation. There is likely avulsion of the lesser trochanter. Head and C-spine results negative for acute pathology and no bleed. There was degenerative changes but no fractures or subluxations. Active Medications Generic Name Dose Route Start Last Admin Trade Name Freq PRN Reason Stop Dose Admin Acetaminophen 650 mg 06/04/16 10:16 Tylenol - PO Q4H PRN FEVER OR PAIN Amoxicillin/Clavulanate Potassium 1 tab 06/04/16 17:30 Augmentin - 875mg Tablet PO BID@0800,1730 [facility] Carbidopa/Levodopa 1 each 06/04/16 14:00 Sinemet 25/100 - PO QID SHADI Docusate Sodium 100 mg 06/04/16 22:00 Colace - PO BID SHADI Doxazosin Mesylate 2 mg 06/05/16 10:00 Cardura - PO DAILY SHADI Enoxaparin Sodium 40 mg 06/05/16 10:00 Lovenox - SQ DAILY SHADI Sodium Chloride 1,000 mls @ 42 mls/hr 06/04/16 10:16 06/04/16 11:00 Normal Saline - IV 42 mls/hr ASDIR SHADI Administration Morphine Sulfate 2 mg 06/04/16 10:16 Morphine Injection - IVPUSH 06/05/16 22:29 Q4H PRN PAIN LEVEL 6-10 Ondansetron HCl 4 mg 06/04/16 10:16 Zofran Injection IVPB Q6H PRN NAUSEA Oxycodone HCl 10 mg 06/04/16 10:16 Roxicodone - PO Q4H PRN PAIN Pantoprazole Sodium 40 mg 06/05/16 10:00 Protonix - PO DAILY [facility] Polyethylene Glycol 17 gm 06/05/16 10:00 Miralax (For Daily Use) - PO DAILY [facility] Solifenacin 5 mg 06/05/16 10:00 Vesicare - PO DAILY [facility] REVIEW OF SYSTEMS - General/Constitutional: Denies fever or chills. Denies weakness, weight change. HEENT: Denies change in vision. Denies ear pain or discharge. Denies sore throat. Cardiovascular: Denies chest pain or shortness of breath. Respiratory: Denies cough, wheezing, or hemoptysis. Gastrointestinal: Denies nausea, vomiting, diarrhea or constipation. Denies rectal bleeding. Genitourinary: Denies dysuria, frequency, or change in urination. Musculoskeletal: Patient constantly motions to L thigh. Skin and breasts: Denies rash or easy bruising. Neurologic: Denies headache, vertigo, loss of consciousness, or loss of sensation. *Physical Exam Last Vital Signs Temp Pulse Resp BP Pulse Ox 98.6 F 78 20 100/40 96 06/04/16 11:10 06/04/16 11:10 06/04/16 11:10 06/04/16 11:10 06/04/16 11:49 PHYSICAL EXAM General Appearance: Well-appearing, appropriately dressed. No apparent distress. HEENT: EOMI, PERRLA, normal ENT inspection, normal voice, TMs normal, pharynx normal. No conjunctival pallor. No photophobia, scleral icterus. Neck: Supple. Trachea midline. No tenderness, rigidity, carotid bruit, stridor , lymphadenopathy, or thyromegaly. Respiratory/Chest: Lungs CTAB. No shortness of breath, chest tenderness, respiratory distress, accessory muscle use. No crackles, rales, rhonchi, stridor , wheezing, dullness Cardiovascular: RRR. S1, S2. No JVD, murmur, bradycardia, tachycardia. Vascular Pulses: Dorsalis-Pedis (R): 2+, Dorsalis-Pedis (L): 2+ Gastrointestinal/Abdominal: Normal bowel sounds. Abdomen soft, non-distended. No tenderness or rebound tenderness. No organomegaly, pulsatile mass, guarding , hernia, hepatomegaly, splenomegaly. Lymphatic: No adenopathy, tenderness. Musculoskeletal/Extremities: Tenderness to left hip, limited ROM secondary to pain. Normal inspection. FROM of all extremities, normal capillary refill. Pelvis Stable. No CVA tenderness. No tenderness to extremities, pedal edema, swelling, erythema or deformity. 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 Fully oriented, alert. Appropriate mood/affect. No appreciable EOM palsy, facial droop or sensory deficit. Strength 5/5 to upper extremities bilaterally. LLE strength 3/5, secondary to pain. Limited ROM. RLE strength 4/5. CBCD WBC 9.9 K/mm3 (4.0-10.0) 06/03/16 07:25 RBC 3.43 M/mm3 (4.00-5.60) L 06/03/16 07:25 Hgb 11.0 GM/dL (11.7-16.9) L D 06/03/16 07:25 Hct 32.5 % (35.4-49) L D 06/03/16 07:25 MCV 94.6 fl (80-96) 06/03/16 07:25 MCHC 34.0 g/dl (32.0-35.9) 06/03/16 07:25 RDW 13.1 % (11.9-15.9) 06/03/16 07:25 Plt Count 244 K/MM3 (134-434) 06/03/16 07:25 MPV 8.9 fl (7.5-11.1) 06/03/16 07:25 CMP Sodium 142 mmol/L (136-145) 06/03/16 07:25 Potassium 4.5 mmol/L (3.5-5.1) 06/03/16 07:25 Chloride 110 mmol/L (98-107) H 06/03/16 07:25 Carbon Dioxide 28 mmol/L (21-32) 06/03/16 07:25 Anion Gap 4 (8-16) L 06/03/16 07:25 BUN 36 mg/dL (7-18) H 06/03/16 07:25 Creatinine 0.9 mg/dL (0.7-1.3) 06/03/16 07:25 Creat Clearance w eGFR > 60 (>60) 06/02/16 20:15 Calcium 8.4 mg/dL (8.5-10.1) L 06/03/16 07:25 Total Bilirubin 0.7 mg/dL (0.2-1.0) D 06/02/16 20:15 AST 18 U/L (15-37) D 06/02/16 20:15 ALT 15 U/L (12-78) D 06/02/16 20:15 Alkaline Phosphatase 42 U/L (45-117) L 06/02/16 20:15 Total Protein 6.9 g/dl (6.4-8.2) 06/02/16 20:15 Albumin 3.8 g/dl (3.4-5.0) 06/02/16 20:15 Plan 81 yo M with hx of Parkinson's presents to ED s/p fall outside of his home. Per patient family and nurse, he has been having ongoing confusion. He takes Sinemet for Parkinson's and medication list indicated 25/100mg, one tablet, three times daily. Increased to four times a day of Sinemet of same dose. CXR with slightly displaced fracture to lateral arch of left 7th and probably lateral arch of left 8th rib. Hip & Pelvis X-ray showed Left intertrochanteric fracture with displacement and superior angulation. Surgical intervention today, Follow up with Orthopedics Head and C-spine results negative for acute pathology and no bleed. There was degenerative changes but no fractures or subluxations. Pain control, though confused this morning possibly due to morphine, monitor mental status. Given age, may benefit from lower potentcy narcotics (percocept, tramadol) Outpatient workup for confusion when patient's acute injuries are treated and not requiring significant pain medication, difficult to guage mental status with ongoing pain and treatment
[2016-06-05] MEDS: SODIUM CHLORIDE 1,000 ML IV SCH ×2 (06:47→14:58)
--- NOTE | 2016-06-05 07:58 | PN ---
[id number] TODAY <> NEURO FOLLOWUP APPRECIATED. AGREE WITH D/C MORPHINE IT MAY BE ADDING TO CONFUSION. ORTHO TO FOLLOW . OTHERWISE THERE IS NO EVIDENCE OF CARDIAC / RESPIRATORY DISTRESS. Selected Entries 06/05/16 06/05/16 05:51 05:52 Temperature 97.2 F L Pulse Rate 92 H Respiratory 18 Rate Blood Pressure 120/72 Blood Pressure 88 Mean Weight 137 lb 8 oz Selected Entries Laboratory Tests P/E <> NECK SUPPLE / CAROTIDS <> NO BRUITS. COR <> S 1 / S 2 <> NO MURMURS / NO GALLOPS CHEST <> DECREASED BS AT BASES ABD <> SOFT / NON TENDER / NO HSM EXT <> NO LE EDEMA / NO CALF TENDERNESS. IMP >< S/P FALL / LEFT HIP FX S/P SURGICAL REPAIR / GAMMA NAIL INSERTION. S/P LEFT 7 TH / 8 TH RIB FX PARKINSONS PROSTATE CA SINUSITIS ON AB RX. B 12 DEF. ++GN BACILLUS URINE CULTURE PAF <>IN NSR / REFUSED A/C PLAN : D/C MORPHINE / PO OXYCODONE NEURO FOLLOWUP FOR CONFUSION. MONITOR LABS PT RX. CARDIOLOGY FOLLOWUP. AWAIT URINE C & S.
[2016-06-05] MEDS: AMOX TR/POT CLAV 875MG/125MG TABLETS (FP) PO SCH ×2 (08:13→17:38)
--- NOTE | 2016-06-05 09:01 | PN ---
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 (short form) - Note 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: Ortho Pt seen and examined s/p left IM gamma nail pod #1 Selected Entries 06/05/16 05:51 Temperature 97.2 F L Pulse Rate 92 H Respiratory 18 Rate Blood Pressure 120/72 Laboratory Tests 06/03/16 07:25 WBC 9.9 Hgb 11.0 L D Hct 32.5 L D Plt Count 244 dressing c/d/i, calf soft , nt nvi a/p PT wbat dvt ppx pain control d/c planning
[2016-06-05] MEDS ORDERED: PT OWN MED DRAWER 7, Y5N ONE (09:52)
[2016-06-05] MEDS: DOXAZOSIN MESYLATE 2 MG TABLET (FP) PO SCH (09:55)
[2016-06-05] MEDS: CARBIDOPA/LEVODOPA 25/100 TABLET (FP) PO SCH ×4 (09:55→22:20)
[2016-06-05] MEDS: DOCUSATE SODIUM 100 MG CAPSULE (FP) PO SCH ×2 (09:55→22:20)
[2016-06-05] MEDS: ENOXAPARIN NA (PORCINE) 40 MG/0.4 ML DISP.SYRIN SQ SCH (09:56)
[2016-06-05] MEDS: PANTOPRAZOLE 40 MG TABLET (FP) PO SCH (09:56)
[2016-06-05] MEDS: SOLIFENACIN SUCCINATE 5 MG TAB (FP) PO SCH (09:58)
[2016-06-05] MEDS: POLYETHYLENE GLYCOL 3350 119 GM BTL PO SCH (09:58)
--- NOTE | 2016-06-05 11:09 | PN ---
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 (short form) - Note 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: ID consult dictated imp/reccd 81 year old man with Parkinson's disease s/p fall at home and left rib and hip fracture he is s/p left hip gamma nail 06/04 I am asked to see him for positive urine culture sent as clean catch from ED UA sent at the same time negative nitrites, negative leuk est, 1 wbc no fevers normal WBC no catheter no difficulties voiding no suprapubic or cva tenderness no leukocytosis asymptomatic bacteriuria- no signs/symptoms of UTI continue contact isolation no need to treat on augmentin for sinusitis per PMD day #3 s/p fall and hip fracture
--- NOTE | 2016-06-05 11:17 | PN ---
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 (short form) - Note 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: POD #1 - s/p left hip gamma nailing under spinal anesthesia. Pt. doing well, resting comfortably in bed. No apparent anesthetic complications noted. Continue current care.
--- NOTE | 2016-06-05 12:13 | CONS ---
DATE OF CONSULTATION: DATE OF DICTATION: 06/05/2016 REQUESTED BY: Pedro Pablo Courtney MD This is a 81-year-old man with Parkinson disease. He sustained a fall at home, with fractures to his left ribs and left hip. He sustained an intertrochanteric fracture. He came to the emergency room on the . He has a history of Parkinson disease and paroxysmal atrial fibrillation, for which has received anticoagulation. He was seen in consultation by Orthopedics and he underwent a left hip gamma nail on the . He was evaluated his primary care doctor as well on the . At the time of admission, he was noted to have acute sinusitis, was started on Augmentin. He was seen by ENT, who confirmed this diagnosis, was maintained on his Augmentin. 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 The patient is awake and alert. He is mildly confused, which appears to be his baseline. Nurse reports he is better than yesterday, when he had anesthesia. He is currently awake and alert. He just tried to ambulate with the help of Physical Therapy. He knows his name and his age. He is not aware he is in the hospital. He denies any difficulty urinating and he has had no fever since admission. He also does not have a Elam catheter. His past medical history is notable for Parkinson disease. He has a history of paroxysmal atrial fibrillation, prostate cancer and BPH, and fracture of the right ankle in the past. He has no known drug allergies. His medications as an outpatient include Vesicare, Sinemet, and aspirin, as well as Cardura. SOCIAL HISTORY: Lives at home with his . There is no history of any cigarette or alcohol use. His current review of systems is unremarkable. He denies any rib pain. He denies any abdominal pain. He has no difficulty urinating. He has no Elam catheter. PHYSICAL EXAMINATION: General: He is awake and alert. Vital Signs: Temperature is 97.8. Pulse of 84. Blood pressure 109/58. Respiratory rate is 20. He weighs 137 pounds. HEENT: Normocephalic. His eyes are anicteric. Neck: Supple. Musculoskeletal: He has increased tone all over. He has a dressing on his left hip at the site of surgery. Heart: Regular rate and rhythm. Lungs: Clear to auscultation. Abdomen: Soft, nontender. He has no suprapubic tenderness. Extremities: Without edema. Labs are notable for a white count of 9.9, hemoglobin 11, platelets 244, INR 1.25. BUN 36, creatinine 0.9. Urinalysis was positive for ketones in blood, there were no nitrites, no leukocyte esterase, and it had 1 white cell and 16 red cells. 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 He has multiple imaging including a chest x-ray, which showed clear lungs. He had slight displaced fracture of the left 7th and 8th ribs. He has the left intertrochanteric hip fracture. He had scans of his head and cervical spine that were notable for chronic sinusitis with interval acute sinusitis in the maxillary sinuses. In summary, this is an elderly man with asymptomatic bacteruria. He has no signs or symptoms of UTI. Given the negative urinalysis, the fact he has no Elam, no difficulty voiding, no fever, no suprapubic or CVA tenderness or leukocytosis, I would maintain the contact isolation. I do not see a need to treat him at this time. I suspect this is from probably skin colonization, as this was a clean catch. He is on Augmentin for sinusitis per his PMD, day number 3. He is status post fall and hip fracture. EDWIN LANDAVERDE M.D. [id number]
--- NOTE | 2016-06-05 12:18 | PN ---
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, Physician History of Present Illness: POD #1 - s/p left hip gamma nailing under spinal anesthesia. No complaints Some confusion - Current Medication List Current Medications: Active Medications Acetaminophen (Tylenol -) 650 mg PO Q4H PRN PRN Reason: FEVER OR PAIN Amoxicillin/Clavulanate Potassium (Augmentin - 875mg Tablet) 1 tab PO BID@0800, 1730 [facility] Last Admin: 06/05/16 08:13 Dose: 1 tab Carbidopa/Levodopa (Sinemet 25/100 -) 1 each PO QID [facility] Last Admin: 06/05/16 09:55 Dose: 1 each Docusate Sodium (Colace -) 100 mg PO BID [facility] Last Admin: 06/05/16 09:55 Dose: 100 mg Doxazosin Mesylate (Cardura -) 2 mg PO DAILY [facility] Last Admin: 06/05/16 09:55 Dose: 2 mg Enoxaparin Sodium (Lovenox -) 40 mg SQ DAILY [facility] Last Admin: 06/05/16 09:56 Dose: 40 mg Sodium Chloride (Normal Saline -) 1,000 mls @ 42 mls/hr IV ASDIR [facility] Last Admin: 06/05/16 06:47 Dose: 42 mls/hr Ondansetron HCl (Zofran Injection) 4 mg IVPB Q6H PRN PRN Reason: NAUSEA Oxycodone HCl (Roxicodone -) 10 mg PO Q4H PRN PRN Reason: PAIN Pantoprazole Sodium (Protonix -) 40 mg PO DAILY [facility] Last Admin: 06/05/16 09:56 Dose: 40 mg Polyethylene Glycol (Miralax (For Daily Use) -) 17 gm PO DAILY [facility] Last Admin: 06/05/16 09:58 Dose: 17 gm Solifenacin (Vesicare -) 5 mg PO DAILY [facility] Last Admin: 06/05/16 09:58 Dose: 5 mg - Objective Vital Signs: Vital Signs Temperature 97.8 F 06/05/16 09:00 Pulse Rate 84 06/05/16 09:00 Respiratory Rate 20 06/05/16 09:00 Blood Pressure 109/58 06/05/16 09:00 O2 Sat by Pulse Oximetry (%) 97 06/05/16 09:00 Constitutional: Yes: No Distress Eyes: Yes: WNL HENT: Yes: WNL Neck: Yes: WNL Cardiovascular: Yes: Regular Rate and Rhythm Respiratory: Yes: WNL Labs: CBC, BMP 06/03/16 07:25 06/03/16 07:25 INR, PTT INR 1.25 (0.82-1.09) H 06/03/16 07:25 Assessment/Plan S/p left hip gamma nailing under spinal anesthesia. Pt. doing well, resting comfortably in bed. No apparent anesthetic complications noted. Continue current CV care. Please call with any questions
[2016-06-05] MEDS ORDERED: TEMAZEPAM 30 MG CAPSULE PO ONE (23:15)
[2016-06-05] MEDS ORDERED: TEMAZEPAM 15 MG CAPSULE PO ONE (23:30)
[2016-06-06 08:12] LABS: BASOPHIL 0.2 % (0-2.0); EOSINOPHIL 0.5 % (0-4.5); MCH 32.6 pg (25.7-33.7); MCHC 34.8 g/dl (32.0-35.9); MEAN CELL VOLUME 93.7 fl (80-96); MEAN PLT VOLUME 8.8 fl (7.5-11.1); NEUTROPHILS 81.1 % (42.8-82.8); PLATELET COUNT 275 K/MM3 (134-434); RDW 13.3 % (11.9-15.9); WHITE BLOOD COUNT 10.3 K/mm3 (4.0-10.0)
[2016-06-06 08:23] LABS: ALBUMIN 2.4 g/dl (3.4-5.0); ALK PHOS 36 U/L (45-117); ANION GAP 9 (8-16); BILIRUBIN,TOTAL 0.9 mg/dL (0.2-1.0); CALCIUM 7.8 mg/dL (8.5-10.1); CO2 26 mmol/L (21-32); CREATININE 0.6 mg/dL (0.7-1.3); GLUCOSE,RANDOM 100 mg/dL (74-106); SGOT/AST 32 U/L (15-37); SGPT/ALT 23 U/L (12-78); TOT PROT 5.4 g/dl (6.4-8.2)
[2016-06-06] MEDS: ACETAMINOPHEN 325 MG TABLET (FP) PO PRN ×2 (08:59→21:17)
[2016-06-06] MEDS: AMOX TR/POT CLAV 875MG/125MG TABLETS (FP) PO SCH (08:59)
[2016-06-06] MEDS ORDERED: PT OWN MED DRAWER 7, Y5N ONE (09:33)
[2016-06-06] MEDS: POLYETHYLENE GLYCOL 3350 119 GM BTL PO SCH (09:45)
[2016-06-06] MEDS: SOLIFENACIN SUCCINATE 5 MG TAB (FP) PO SCH (09:45)
[2016-06-06] MEDS: DOCUSATE SODIUM 100 MG CAPSULE (FP) PO SCH ×2 (09:45→21:14)
[2016-06-06] MEDS: CARBIDOPA/LEVODOPA 25/100 TABLET (FP) PO SCH ×4 (09:45→21:13)
[2016-06-06] MEDS: PANTOPRAZOLE 40 MG TABLET (FP) PO SCH (09:45)
[2016-06-06] MEDS: DOXAZOSIN MESYLATE 2 MG TABLET (FP) PO SCH (09:46)
[2016-06-06] MEDS: ENOXAPARIN NA (PORCINE) 40 MG/0.4 ML DISP.SYRIN SQ SCH (09:46)
--- NOTE | 2016-06-06 11:31 | OP ---
DATE OF OPERATION: 06/04/2016 PREOPERATIVE DIAGNOSIS: Left femur intertrochanteric fracture. POSTOPERATIVE DIAGNOSIS: Left femur intertrochanteric fracture. PROCEDURE PERFORMED: Left hip Gamma nail/intramedullary nail. SURGEON: Gera Marrufo MD OPERATIONS TEAM LEADER: None. ANESTHESIA: Spinal. DRAINS: None. COMPLICATIONS: None. BLOOD LOSS: 75 mL. BLOOD GIVEN: None. FLUID REPLACEMENT: PlasmaLyte 1000 mL. INDICATIONS: The patient is a 81-year-old male with the preoperative diagnosis of a left hip intertrochanteric femur fracture. After understanding the potential risks, complications, alternatives and benefits of surgery, and the risks of nonsurgical treatment, the patient elected to undergo this procedure. DESCRIPTION OF PROCEDURE: The patient was brought to the operating room, peripheral IV placed, IV sedation given. One gram of IV Ancef was given. Spinal anesthesia was induced. Ample Webril was placed around both ankles and the perineal post. She was placed on the fracture table in the standard position. Longitudinal traction and internal rotation were applied to the left leg. X-rays were taken in the AP and lateral planes, documenting excellent reduction of the fracture. Next, the left lower extremity was prepped and draped in sterile fashion. The shower curtain was applied, and incision made with a number 15 scalpel blade. Subcutaneous hemostasis was achieved with Bovie cautery. Dissection was done down to the top portion of the greater trochanter. Zimmer elevator was used to expose the bone for the starting point. Under direct C-arm fluoroscopy guidance, the partially-threaded guidewire was placed through the greater trochanter, through the proximal fragment to the distal fragment to the center of the medullary canal. AP and lateral, and proximal and distal x-rays were taken, documenting excellent position of the reduction and the guidewire. Next, the proximal reamer was used. A standard Amanda Titanium Gamma3 125-degree hal was placed in a cannulated fashion over the guidewire. Excellent position was documented in the AP and lateral planes. Some of the longitudinal traction was taken off for compression. Then, using the external jig in the standard fashion, a 95-mm lag screw was placed. Compression was achieved. Excellent reduction was achieved. The proximal set screw was locked into place. Then, using the external jig, the distal interlocking 35-mm screw was placed. The external jig was removed. Excellent position was documented in the AP and lateral planes of both the fracture fragments and the hardware. The area was copiously irrigated and washed out. The deep fascial layer in the proximal incision was closed with 0 Vicryl sutures. The deep dermal layer was closed with 2-0 Vicryl sutures and final skin reapproximation was done with a row of torey. The area was then covered with Aquacel dressing. The patient was taken down off the fracture table. The perineal post was removed. Total operative time was about 25 minutes. There were no complications during the case. The patient was stable throughout the case and brought to the regular recovery room in stable condition. Mikel [id number]
--- NOTE | 2016-06-06 13:46 | PN ---
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 (short form) - Note 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: Ortho Pt seen and examined s/p left IM gamma nail pod #2 Selected Entries 06/06/16 06/06/16 08:00 10:00 Temperature 99.3 F Pulse Rate 90 Respiratory 18 Rate Blood Pressure 124/62 Laboratory Tests 06/06/16 07:00 WBC 10.3 H Hgb 9.8 L D Hct 28.2 L Plt Count 275 dressing c/d/i, calf soft , nt nvi a/p PT wbat dvt ppx pain control d/c planning
--- NOTE | 2016-06-06 14:36 | PN ---
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 (short form) - Note 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: family at bedside he is much more confused diaphoretic as well they report he got clean bill of health in ED 05/26 when they brought him in for some mild confusion Vital Signs Period Temp Pulse Resp BP Sys/Walker Pulse Ox Last 24 Hr 98.8 F-100.5 F 82-96 18-19 108-124/62-76 95-97 cor-rrr lungs clear abd soft,nt ext dressing intact CBC, BMP 06/06/16 07:00 06/06/16 07:00 Current Medications Acetaminophen (Tylenol -) 650 mg PO Q4H PRN PRN Reason: FEVER OR PAIN Last Admin: 06/06/16 08:59 Dose: 650 mg Amoxicillin/Clavulanate Potassium (Augmentin - 875mg Tablet) 1 tab PO BID@0800, 1730 [facility] Last Admin: 06/06/16 08:59 Dose: 1 tab Carbidopa/Levodopa (Sinemet 25/100 -) 1 each PO QID [facility] Last Admin: 06/06/16 13:46 Dose: 1 each Docusate Sodium (Colace -) 100 mg PO BID [facility] Last Admin: 06/06/16 09:45 Dose: 100 mg Doxazosin Mesylate (Cardura -) 2 mg PO DAILY [facility] Last Admin: 06/06/16 09:46 Dose: 2 mg Enoxaparin Sodium (Lovenox -) 40 mg SQ DAILY [facility] Last Admin: 06/06/16 09:46 Dose: 40 mg Sodium Chloride (Normal Saline -) 1,000 mls @ 42 mls/hr IV ASDIR [facility] Last Admin: 06/05/16 14:58 Dose: Not Given Ondansetron HCl (Zofran Injection) 4 mg IVPB Q6H PRN PRN Reason: NAUSEA Oxycodone HCl (Roxicodone -) 10 mg PO Q4H PRN PRN Reason: PAIN Pantoprazole Sodium (Protonix -) 40 mg PO DAILY [facility] Last Admin: 06/06/16 09:45 Dose: 40 mg Polyethylene Glycol (Miralax (For Daily Use) -) 17 gm PO DAILY [facility] Last Admin: 06/06/16 09:45 Dose: 17 gm Solifenacin (Vesicare -) 5 mg PO DAILY [facility] Last Admin: 06/06/16 09:45 Dose: 5 mg a/p low grade temp and confusion cultures/blood and urine- straight cath empiric ertapenem s/p fall and hip fracture am not sure if his mental status is worse due to fall and pain and underlying dementia or if he is developing an infection
[2016-06-06] MEDS: SODIUM CHLORIDE 1,000 ML IV SCH (16:05)
[2016-06-06] MEDS: ERTAPENEM SODIUM 1 GM in SODIUM CHLORIDE 50 ML IVPB SCH (16:05)
--- NOTE | 2016-06-06 17:02 | PN ---
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, Physician Chief Complaint: Patient is very confused. Unable to get a subjective from patient - Current Medication List Current Medications: Active Medications Acetaminophen (Tylenol -) 650 mg PO Q4H PRN PRN Reason: FEVER OR PAIN Last Admin: 06/06/16 08:59 Dose: 650 mg Carbidopa/Levodopa (Sinemet 25/100 -) 1 each PO QID [facility] Last Admin: 06/06/16 13:46 Dose: 1 each Docusate Sodium (Colace -) 100 mg PO BID [facility] Last Admin: 06/06/16 09:45 Dose: 100 mg Doxazosin Mesylate (Cardura -) 2 mg PO DAILY [facility] Last Admin: 06/06/16 09:46 Dose: 2 mg Enoxaparin Sodium (Lovenox -) 40 mg SQ DAILY [facility] Last Admin: 06/06/16 09:46 Dose: 40 mg Sodium Chloride (Normal Saline -) 1,000 mls @ 42 mls/hr IV ASDIR [facility] Last Admin: 06/06/16 16:05 Dose: 42 mls/hr Ertapenem 1 gm/ Sodium (Chloride) 50 mls @ 50 mls/hr IVPB DAILY [facility] Last Admin: 06/06/16 16:05 Dose: 50 mls/hr Ondansetron HCl (Zofran Injection) 4 mg IVPB Q6H PRN PRN Reason: NAUSEA Oxycodone HCl (Roxicodone -) 10 mg PO Q4H PRN PRN Reason: PAIN Pantoprazole Sodium (Protonix -) 40 mg PO DAILY [facility] Last Admin: 06/06/16 09:45 Dose: 40 mg Polyethylene Glycol (Miralax (For Daily Use) -) 17 gm PO DAILY [facility] Last Admin: 06/06/16 09:45 Dose: 17 gm Solifenacin (Vesicare -) 5 mg PO DAILY [facility] Last Admin: 06/06/16 09:45 Dose: 5 mg - Objective Vital Signs: Vital Signs Temperature 99.4 F 06/06/16 14:15 Pulse Rate 92 H 06/06/16 14:15 Respiratory Rate 18 06/06/16 08:00 Blood Pressure 124/62 06/06/16 08:00 O2 Sat by Pulse Oximetry (%) 95 06/06/16 09:00 Constitutional: Yes: No Distress, Calm, Diaphoresis, Other (alert and oriented x2 (person and time)) Cardiovascular: Yes: Regular Rate and Rhythm. No: Gallop, Murmur, Rub Respiratory: Yes: Regular, CTA Bilaterally. No: Rales, Rhonchi, Wheezes Gastrointestinal: Yes: Normal Bowel Sounds, Soft. No: Distention, Tenderness Extremities: Yes: WNL Edema: No Labs: CBC, BMP 06/06/16 07:00 06/06/16 07:00 INR, PTT INR 1.25 (0.82-1.09) H 06/03/16 07:25 Problem List - Problems (1) UTI (urinary tract infection) Assessment/Plan: -case d/w ID -concerning as patient is now showing signs of sepsis -discontinue augmentin -begin ertapenem Code(s): N39.0 - URINARY TRACT INFECTION, SITE NOT SPECIFIED (2) Acute metabolic encephalopathy Assessment/Plan: -secondary to UTI -antibiotics as above Code(s): G93.41 - METABOLIC ENCEPHALOPATHY (3) Fracture of trochanter of left femur Assessment/Plan: -s/p surgery -SNF placement Code(s): S72.102A - UNSP TROCHANTERIC FRACTURE OF LEFT FEMUR, INIT FOR CLOS FX Qualifiers: Encounter type: initial encounter Fracture type: closed Qualified Code(s): S72.102A - Unspecified trochanteric fracture of left femur, initial encounter for closed fracture (4) Maxillary sinusitis, acute Assessment/Plan: -stable -currently on ertapenem -ENT consulted Code(s): J01.00 - ACUTE MAXILLARY SINUSITIS, UNSPECIFIED (5) Ribs, multiple fractures Assessment/Plan: -pain control Code(s): S22.49XA - MULTIPLE FRACTURES OF RIBS, UNSP SIDE, INIT FOR CLOS FX Qualifiers: Encounter type: initial encounter Fracture type: closed Laterality : left Qualified Code(s): S22.42XA - Multiple fractures of ribs, left side, initial encounter for closed fracture
[2016-06-06 20:51] LABS: URINE APPEARANCE CLEAR; URINE BILIRUBIN NEGATIVE (NEGATIVE); URINE COLOR DKYELLOW; URINE GLUCOSE (UA) NEGATIVE (NEGATIVE); URINE KETONE TRACE (NEGATIVE); URINE LEUK ESTERASE NEGATIVE (NEGATIVE); URINE NITRITE NEGATIVE (NEGATIVE); URINE UROBILINOGEN NEGATIVE E.U./dl (0.2-1.0)
[2016-06-06 20:56] LABS: URINE BLOOD 1+ (NEGATIVE); URINE PROTEIN 1+ (NEGATIVE)
[2016-06-06 21:00] LABS: URINE MUCUS RARE; URINE RBC 4 /hpf (0-3); URINE WBC 1 /hpf (3-5)
[2016-06-07 07:57] LABS: BASOPHIL 0.4 % (0-2.0); MCH 32.3 pg (25.7-33.7); MCHC 34.2 g/dl (32.0-35.9); MEAN CELL VOLUME 94.4 fl (80-96); MEAN PLT VOLUME 8.2 fl (7.5-11.1); NEUTROPHILS 78.6 % (42.8-82.8); PLATELET COUNT 316 K/MM3 (134-434); RDW 13.5 % (11.9-15.9); WHITE BLOOD COUNT 8.3 K/mm3 (4.0-10.0)
[2016-06-07 08:24] LABS: MAGNESIUM 2.3 mg/dL (1.8-2.4)
[2016-06-07 08:26] LABS: CREATININE 0.7 mg/dL (0.7-1.3); PHOSPHOROUS 1.9 mg/dL (2.5-4.9)
--- NOTE | 2016-06-07 09:17 | PN ---
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 (short form) - Note 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: Pt s/p left hip Gamma nail, doing well, min c/o pain L hip, states entire right leg in mild discomfort, nonspecific. AVSS B/L LE NVI, limited ROM, incisions CDI. Overall pt doing fine. Rec P.T., OOB to ambulate, PWB LLE, OOB to chair every day DC planning
[2016-06-07] MEDS ORDERED: PT OWN MED DRAWER 7, Y5N ONE (09:21)
[2016-06-07] MEDS: ERTAPENEM SODIUM 1 GM in SODIUM CHLORIDE 50 ML IVPB SCH (09:34)
[2016-06-07] MEDS: DOXAZOSIN MESYLATE 2 MG TABLET (FP) PO SCH (09:34)
[2016-06-07] MEDS: SOLIFENACIN SUCCINATE 5 MG TAB (FP) PO SCH (09:35)
[2016-06-07] MEDS: CARBIDOPA/LEVODOPA 25/100 TABLET (FP) PO SCH ×4 (09:35→21:10)
[2016-06-07] MEDS: PANTOPRAZOLE 40 MG TABLET (FP) PO SCH (09:35)
[2016-06-07] MEDS: DOCUSATE SODIUM 100 MG CAPSULE (FP) PO SCH ×2 (09:36→21:11)
[2016-06-07] MEDS: POLYETHYLENE GLYCOL 3350 119 GM BTL PO SCH (09:36)
[2016-06-07] MEDS: ENOXAPARIN NA (PORCINE) 40 MG/0.4 ML DISP.SYRIN SQ SCH (09:36)
--- NOTE | 2016-06-07 09:39 | PN ---
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 (short form) - Note 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: much improved mental status today ertapenem day #2 Vital Signs Period Temp Pulse Resp BP Sys/Walker Pulse Ox Last 24 Hr 97.6 F-99.5 F 79-92 16-21 105-123/52-69 95 cor-rrr llungs clear abd soft,nt ext dressing intact CBC, BMP 06/07/ 06:30 /18/ 06:30 cultures pending a/p s/p hip fracture low grade temp - ?UTI, ertapenem day #2, plans to switch to po macrobid in am if blood cultures are negative and patient is afebrile possible UTI- repeat blood/urine cultures pending
[2016-06-07] MEDS: SODIUM CHLORIDE 1,000 ML IV SCH (15:48)
--- NOTE | 2016-06-07 16:56 | PN ---
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, Physician Chief Complaint: Mr Cullen is much improved today. Says he is feeling well. Is having some pain in his leg. No cp, sob, n/v. - Current Medication List Current Medications: Active Medications Acetaminophen (Tylenol -) 650 mg PO Q4H PRN PRN Reason: FEVER OR PAIN Last Admin: 06/06/16 21:17 Dose: 650 mg Carbidopa/Levodopa (Sinemet 25/100 -) 1 each PO QID [facility] Last Admin: 06/07/16 14:05 Dose: 1 each Docusate Sodium (Colace -) 100 mg PO BID [facility] Last Admin: 06/07/16 09:36 Dose: Not Given Doxazosin Mesylate (Cardura -) 2 mg PO DAILY [facility] Last Admin: 06/07/16 09:34 Dose: 2 mg Enoxaparin Sodium (Lovenox -) 40 mg SQ DAILY [facility] Last Admin: 06/07/16 09:36 Dose: 40 mg Sodium Chloride (Normal Saline -) 1,000 mls @ 42 mls/hr IV ASDIR [facility] Last Admin: 06/07/16 15:48 Dose: 42 mls/hr Ertapenem 1 gm/ Sodium (Chloride) 50 mls @ 50 mls/hr IVPB DAILY [facility] Last Admin: 06/07/16 09:34 Dose: 50 mls/hr Ondansetron HCl (Zofran Injection) 4 mg IVPB Q6H PRN PRN Reason: NAUSEA Pantoprazole Sodium (Protonix -) 40 mg PO DAILY [facility] Last Admin: 06/07/16 09:35 Dose: 40 mg Polyethylene Glycol (Miralax (For Daily Use) -) 17 gm PO DAILY [facility] Last Admin: 06/07/16 09:36 Dose: 17 gm Potassium Phos/Sodium Phos (Phos-Nak Packet -) 1 packet PO TID [facility] Solifenacin (Vesicare -) 5 mg PO DAILY [facility] Last Admin: 06/07/16 09:35 Dose: 5 mg - Objective Vital Signs: Vital Signs Temperature 97.9 F 06/07/16 13:52 Pulse Rate 80 06/07/16 13:52 Respiratory Rate 20 06/07/16 13:52 Blood Pressure 123/69 06/07/16 08:00 O2 Sat by Pulse Oximetry (%) 96 06/07/16 09:00 Constitutional: Yes: Well Nourished, No Distress, Calm Cardiovascular: Yes: Regular Rate and Rhythm. No: Gallop, Murmur, Rub Respiratory: Yes: Regular, CTA Bilaterally. No: Rales, Rhonchi, Wheezes Gastrointestinal: Yes: Normal Bowel Sounds, Soft. No: Distention, Tenderness Extremities: Yes: WNL Edema: No Labs: CBC, BMP 06/07/16 06:30 06/07/16 06:30 INR, PTT INR 1.25 (0.82-1.09) H 06/03/16 07:25 Problem List - Problems (1) UTI (urinary tract infection) Code(s): N39.0 - URINARY TRACT INFECTION, SITE NOT SPECIFIED (2) Acute metabolic encephalopathy Code(s): G93.41 - METABOLIC ENCEPHALOPATHY (3) Fracture of trochanter of left femur Code(s): S72.102A - UNSP TROCHANTERIC FRACTURE OF LEFT FEMUR, INIT FOR CLOS FX Qualifiers: Encounter type: initial encounter Fracture type: closed Qualified Code(s): S72.102A - Unspecified trochanteric fracture of left femur, initial encounter for closed fracture (4) Maxillary sinusitis, acute Code(s): J01.00 - ACUTE MAXILLARY SINUSITIS, UNSPECIFIED (5) Ribs, multiple fractures Code(s): S22.49XA - MULTIPLE FRACTURES OF RIBS, UNSP SIDE, INIT FOR CLOS FX Qualifiers: Encounter type: initial encounter Fracture type: closed Laterality : left Qualified Code(s): S22.42XA - Multiple fractures of ribs, left side, initial encounter for closed fracture Assessment/Plan (1) UTI (urinary tract infection) Assessment/Plan: -ID following -continue ertapenem Code(s): N39.0 - URINARY TRACT INFECTION, SITE NOT SPECIFIED (2) Acute metabolic encephalopathy Assessment/Plan: -secondary to UTI -antibiotics as above -much improved today Code(s): G93.41 - METABOLIC ENCEPHALOPATHY (3) Fracture of trochanter of left femur Assessment/Plan: -s/p surgery -SNF placement Code(s): S72.102A - UNSP TROCHANTERIC FRACTURE OF LEFT FEMUR, INIT FOR CLOS FX Qualifiers: Encounter type: initial encounter Fracture type: closed Qualified Code(s): S72.102A - Unspecified trochanteric fracture of left femur, initial encounter for closed fracture (4) Maxillary sinusitis, acute Assessment/Plan: -stable -currently on ertapenem -ENT consulted Code(s): J01.00 - ACUTE MAXILLARY SINUSITIS, UNSPECIFIED (5) Ribs, multiple fractures Assessment/Plan: -pain control Code(s): S22.49XA - MULTIPLE FRACTURES OF RIBS, UNSP SIDE, INIT FOR CLOS FX Qualifiers: Encounter type: initial encounter Fracture type: closed Laterality : left Qualified Code(s): S22.42XA - Multiple fractures of ribs, left side, initial encounter for closed fracture
[2016-06-07] MEDS: ACETAMINOPHEN 325 MG TABLET (FP) PO PRN (21:10)
[2016-06-07] MEDS: NAPH,MB-DB/K PH,MBDB POWDER PACKET PO SCH (21:11)
[2016-06-08] MEDS: NAPH,MB-DB/K PH,MBDB POWDER PACKET PO SCH ×2 (05:40→14:58)
[2016-06-08 08:40] LABS: CALCIUM 7.8 mg/dL (8.5-10.1); CREATININE 0.6 mg/dL (0.7-1.3); MAGNESIUM 2.1 mg/dL (1.8-2.4); PHOSPHOROUS 2.8 mg/dL (2.5-4.9)
[2016-06-08 08:46] LABS: BASOPHIL 0.7 % (0-2.0); EOSINOPHIL 2.5 % (0-4.5); MCH 32.2 pg (25.7-33.7); MCHC 34.4 g/dl (32.0-35.9); MEAN CELL VOLUME 93.7 fl (80-96); MEAN PLT VOLUME 8.4 fl (7.5-11.1); NEUTROPHILS 75.3 % (42.8-82.8); PLATELET COUNT 350 K/MM3 (134-434); RDW 13.4 % (11.9-15.9); WHITE BLOOD COUNT 7.5 K/mm3 (4.0-10.0)
--- NOTE | 2016-06-08 09:05 | PN ---
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 (short form) - Note 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: Pt seen, doing well, on POD #4 s/p left Gamma. He was disoriented overnight. Removed his dressing. LLE is NVI, good ROM but pt has a hard time following commands bc of his Parkinson's Overall pt doing fine orthopedically Can Transfer/DC from an orthopedic pov
[2016-06-08] MEDS: ERTAPENEM SODIUM 1 GM in SODIUM CHLORIDE 50 ML IVPB SCH (09:31)
[2016-06-08] MEDS: CARBIDOPA/LEVODOPA 25/100 TABLET (FP) PO SCH ×2 (09:42→14:59)
[2016-06-08] MEDS: ENOXAPARIN NA (PORCINE) 40 MG/0.4 ML DISP.SYRIN SQ SCH (09:43)
[2016-06-08] MEDS: DOXAZOSIN MESYLATE 2 MG TABLET (FP) PO SCH (09:43)
[2016-06-08] MEDS: PANTOPRAZOLE 40 MG TABLET (FP) PO SCH (09:43)
[2016-06-08] MEDS: SOLIFENACIN SUCCINATE 5 MG TAB (FP) PO SCH (09:44)
[2016-06-08] MEDS: POLYETHYLENE GLYCOL 3350 119 GM BTL PO SCH (09:44)
[2016-06-08] MEDS: DOCUSATE SODIUM 100 MG CAPSULE (FP) PO SCH (09:44)
--- NOTE | 2016-06-08 09:55 | PN ---
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, Physician Chief Complaint: ID Alert No distress receiving Ertepenem day 3 Asymptomatic No fever - Current Medication List Current Medications: Active Medications Acetaminophen (Tylenol -) 650 mg PO Q4H PRN PRN Reason: FEVER OR PAIN Last Admin: 06/07/16 21:10 Dose: 650 mg Carbidopa/Levodopa (Sinemet 25/100 -) 1 each PO QID [facility] Last Admin: 06/08/16 09:42 Dose: 1 each Docusate Sodium (Colace -) 100 mg PO BID [facility] Last Admin: 06/08/16 09:44 Dose: Not Given Doxazosin Mesylate (Cardura -) 2 mg PO DAILY [facility] Last Admin: 06/08/16 09:43 Dose: 2 mg Enoxaparin Sodium (Lovenox -) 40 mg SQ DAILY [facility] Last Admin: 06/08/16 09:43 Dose: 40 mg Sodium Chloride (Normal Saline -) 1,000 mls @ 42 mls/hr IV ASDIR [facility] Last Admin: 06/07/16 15:48 Dose: 42 mls/hr Ertapenem 1 gm/ Sodium (Chloride) 50 mls @ 50 mls/hr IVPB DAILY [facility] Last Admin: 06/08/16 09:31 Dose: 50 mls/hr Ondansetron HCl (Zofran Injection) 4 mg IVPB Q6H PRN PRN Reason: NAUSEA Pantoprazole Sodium (Protonix -) 40 mg PO DAILY [facility] Last Admin: 06/08/16 09:43 Dose: 40 mg Polyethylene Glycol (Miralax (For Daily Use) -) 17 gm PO DAILY [facility] Last Admin: 06/08/16 09:44 Dose: Not Given Potassium Phos/Sodium Phos (Phos-Nak Packet -) 1 packet PO TID [facility] Last Admin: 06/08/16 05:40 Dose: 1 packet Solifenacin (Vesicare -) 5 mg PO DAILY [facility] Last Admin: 06/08/16 09:44 Dose: 5 mg - Objective Vital Signs: Vital Signs Temperature 97.5 F L 06/08/16 06:10 Pulse Rate 84 06/08/16 06:10 Respiratory Rate 18 06/08/16 06:10 Blood Pressure 133/75 06/08/16 06:10 O2 Sat by Pulse Oximetry (%) 97 06/07/16 21:00 Constitutional: Yes: Well Nourished, No Distress Neck: Yes: WNL, Supple Cardiovascular: Yes: Regular Rate and Rhythm, S1, S2 Respiratory: Yes: WNL, Regular, CTA Bilaterally Gastrointestinal: Yes: WNL, Normal Bowel Sounds, Soft. No: Tenderness Extremities: Yes: Other (Left torey thigh) Labs: CBC, BMP 06/08/16 07:00 06/08/16 07:00 INR, PTT INR 1.25 (0.82-1.09) H 06/03/16 07:25 Assessment/Plan Microbiology 06/03/16 09:30 Urine - Urine Clean Catch Urine Culture - Final Escherichia Coli Esbl Platform Attendant 06/06/16 16:30 Blood - Peripheral Venous Blood Culture - Preliminary NO GROWTH OBTAINED AFTER 24 HOURS, INCUBATION TO CONTINUE FOR 4 DAYS. 06/06/16 16:30 Blood - Peripheral Venous Blood Culture - Preliminary NO GROWTH OBTAINED AFTER 24 HOURS, INCUBATION TO CONTINUE FOR 4 DAYS. Laboratory Tests 06/03/16 06/08/16 06/08/16 09:50 07:00 07:00 WBC 7.5 Hgb 9.9 L Hct 28.8 L Plt Count 350 BUN 20 H Creatinine 0.6 L Urine RBC 16 Urine WBC 1 Assessment ESBL in urine c/s ? UTI Post op hip surgery 06/04 left hip Plan Stop Ertepenem and give Macrobid 7 days Suman KELLEY
[2016-06-08] MEDS ORDERED: NITROFURANTOIN MACROCRYSTAL 50 MG CAPSULE (FP) PO SCH (12:00)
--- NOTE | 2016-06-08 13:23 | DS ---
Physical Examination Vital Signs: Vital Signs Temperature 99 F 06/08/16 09:00 Pulse Rate 78 06/08/16 09:00 Respiratory Rate 20 06/08/16 09:00 Blood Pressure 116/64 06/08/16 09:00 O2 Sat by Pulse Oximetry (%) 97 06/07/16 21:00 Labs: CBC, BMP 06/08/16 07:00 06/08/16 07:00 Discharge Summary Reason For Visit: FRACTURE OF TROCHANTER OF LEFT FEMUR Current Active Problems Acute metabolic encephalopathy (Acute) Fracture of trochanter of left femur (Acute) Maxillary sinusitis, acute (Acute) Pleural effusion (Acute) Ribs, multiple fractures (Acute) UTI (urinary tract infection) (Acute) Condition: Stable - Instructions Diet, Activity, Other Instructions: regular diet. Up with assistance, further activity per PT at SNF Referrals: Jaya Miller MD [Primary Care Provider] - Gera Marrufo MD [Staff Physician] - [facility]position[facility] - Home Medications Comprehensive Discharge Medication List: Ambulatory Orders Carbidopa/Levodopa 25/100 [Sinemet 25/100 -] 1 each PO QID tablet 06/08/16 Doxazosin Mesylate [Cardura -] 2 mg PO DAILY tablet 06/08/16 Enoxaparin [Lovenox -] 40 mg SQ DAILY disp.syrin 06/08/16 Nitrofurantoin Macrocrystal [Macrodantin -] 100 mg PO Q6HPO 7 Days 06/08/16 Polyethylene Glycol 3350 [Miralax 119 gm Btl -] 17 gm PO DAILY bottle 06/08/16 Solifenacin Succinate [Vesicare -] 5 mg PO DAILY tab 06/08/16
[2016-06-08 13:39] VITALS: BP 120/68; PULSE 76; TEMP 98.6
== END 2016-06-08 16:20 | DRG 480 ==
LOC: JER 18:21 → JERBED 22:30 → J6S 06-03 00:32
PROVIDERS: ADMIT Internal Medicine; ATTEND Internal Medicine
PROC: 0QH706Z Insertion of Intramedullary Internal Fixation Device into Left Upper Femur, Open Approach (ICD-10-PCS; principal; 2016-06-04 08:00)
DX: S72.142A Displaced intertrochanteric fracture of left femur, initial encounter for closed fracture (principal); G93.41 Metabolic encephalopathy; N39.0 Urinary tract infection, site not specified; S22.42XA Multiple fractures of ribs, left side, initial encounter for closed fracture; W19.XXXA Unspecified fall, initial encounter; Y93.9 Activity, unspecified; Y92.89 Other specified places as the place of occurrence of the external cause; Y99.9 Unspecified external cause status; J01.00 Acute maxillary sinusitis, unspecified; G20 Parkinson's disease; Z85.46 Personal history of malignant neoplasm of prostate
CPT/HCPCS: 36415; 70450-TC; 71020-TC; 72125-TC; 73523-TC; 73562-TC-LT; 80048; 80053; 81003; 81015; 83735; 84100; 85025; 85610; 86850; 86900; 86901; 87040; 87086; 87186; 93005; 93010; 94760; 97116-GP; 97162-PG; 99285-25

== ENCOUNTER 2016-09-22 13:24 | Inpatient (IN) | payer OTHER, BC ==
--- NOTE | 2016-09-22 14:26 | PDOC ---
Attending Attestation - Resident Resident Name: Jorge Stanley - ED Attending Attestation I have performed the following: I have examined & evaluated the patient, The case was reviewed & discussed with the resident, I agree w/resident's findings & plan, Exceptions are as noted - HPI HPI: 81 yo M hx BPH, Parkinsons presents with worsening weakness and altered mental status for the past month. As per family, he is AAOx3 at baseline, but lately he has been confused. When he was first discharged from rehab, he was not this confused, but has steadily gotten worse. His mental status waxes and wanes. He is alert at times. Family gave most of medical history, as patient was altered, not answering questions. Of note, he usually has a vigorous appetite, which has been significantly decreased lately. - Physicial Exam PE: GENERAL: Awake, alert, confused. Appears uncomfortable. HEAD: No signs of trauma EYES: PERRLA, EOMI, sclera anicteric, conjunctiva clear ENT: Auricles normal inspection, hearing grossly normal, nares patent, oropharynx clear without exudates. Dry mucosa NECK: Normal ROM, supple, no lymphadenopathy, JVD, or masses LUNGS: Breath sounds equal, clear to auscultation bilaterally. No wheezes, and no crackles HEART: Regular rate and rhythm, normal S1 and S2, no murmurs, rubs or gallops ABDOMEN: Soft, diffusely tender with guarding, firm in the suprapubic area and LLQ. +Hyperactive bowel sounds. No rebound. No masses EXTREMITIES: Normal range of motion, no edema. No clubbing or cyanosis. No cords, erythema, or tenderness NEUROLOGICAL: Limited by mental status. Moving all extremities. Not following commands. SKIN: Warm, Dry, normal turgor, no rashes or lesions noted. - Medical Decision Making Pt appeared delirious on initial evaluation. Family stated he had normal urine output, and initial abd exam showed diffuse tenderness. However, when ochoa was attempted by the nurse, there was some resistance and blood. I placed the ochoa without difficulty, and patient passed almost 2L urine rather quickly. At this time, CT a/p was cancelled. CTH, UA, and labs were obtained to evaluate for source of AMS. Will cover with zosyn for presumed UTI (although the UA is not significant, his urine was initially clear, but became cloudy as his bladder became more empty, and was malodorous. UCx sent, and may be positive. Will admit.
[2016-09-22 15:07] LABS: MCH 29.8 pg (25.7-33.7); MCHC 32.5 g/dl (32.0-35.9); MEAN CELL VOLUME 91.9 fl (80-96); MEAN PLT VOLUME 8.4 fl (7.5-11.1); PLATELET COUNT 340 K/MM3 (134-434); RDW 16.1 % (11.9-15.9); WHITE BLOOD COUNT 15.4 K/mm3 (4.0-10.0)
[2016-09-22 15:16] LABS: EOSINOPHIL 0.2 % (0-4.5)
[2016-09-22 15:17] LABS: PLATELET ESTIMATE ADEQUATE (NORMAL)
[2016-09-22 15:35] LABS: ALBUMIN 3.1 g/dl (3.4-5.0); ALK PHOS 73 U/L (45-117); ANION GAP 10 (8-16); BILIRUBIN,TOTAL 0.5 mg/dL (0.2-1.0); CALCIUM 9.5 mg/dL (8.5-10.1); CO2 27 mmol/L (21-32); COCKROFT - GAULT 64.04; CREATININE 0.9 mg/dL (0.7-1.3); GLUCOSE,RANDOM 100 mg/dL (74-106); MAGNESIUM 2.6 mg/dL (1.8-2.4); SGOT/AST 38 U/L (15-37); SGPT/ALT 29 U/L (12-78); TOT PROT 7.6 g/dl (6.4-8.2)
--- NOTE | 2016-09-22 16:29 | PDOC ---
History of Present Illness - General Chief Complaint: Pain Stated Complaint: ABD PAIN Time Seen by Provider: 09/22/16 13:39 History Source: Family (Daughter), Spouse Exam Limitations: Clinical Condition, Dementia - History of Present Illness Initial Comments: 09/22/16 16:28 81 y/o M w/PMH of BPH and parkinsons presents to ER w/ c/o progressively worsening weakness and mental status over last 1 month since being discharged from rehab s/p L femur fracture according to family. Pt was poor historian. According to family pt complained of abd pain 1 week ago but since then has not complained of pain. He has not been eating and drinking as much over the last few days as well. Family denies any fevers or chills, nausea, vomiting. According to family he has had some abdominal distention over the last few days to week. He has also had some blood in stool since this morning but family says it was not much. Pt gets diaper changed 1-2x per day but does not tell family when he has wet the diaper. 09/22/16 17:57 Past History - Past Medical History Allergies/Adverse Reactions: Allergies Allergy/AdvReac Type Severity Reaction Status Date / Time No Known Allergies Allergy Verified 09/22/16 13:26 Home Medications: Ambulatory Orders Carbidopa/Levodopa 25/100 [Sinemet 25/100 -] 1 each PO QID tablet 06/08/16 Solifenacin Succinate [Vesicare -] 10 mg PO DAILY 09/22/16 Cancer: Yes (prostate,skin) Other medical history: PARKINSONS. - Surgical History Abdominal Surgery: Yes Cholecystectomy: Yes - Immunization History Immunization Up to Date: Yes - Psycho/Social/Smoking Cessation Hx Anxiety: No Suicidal Ideation: No Smoking History: Never smoked Have you smoked in the past 12 months: No Hx Alcohol Use: No Drug/Substance Use Hx: No Substance Use Type: None Hx Substance Use Treatment: No Review of Systems - Review of Systems Comments:: CONSTITUTIONAL: +loss of appetite, generalized weakness Absent: fever, chills, diaphoresis, malaise HEENT: Absent: rhinorrhea, nasal congestion, throat pain, throat swelling, difficulty swallowing, mouth swelling, ear pain, eye pain, visual Changes CARDIOVASCULAR: Absent: chest pain, syncope, palpitations, irregular heart rate , lightheadedness, peripheral edema RESPIRATORY: Absent: cough, shortness of breath, dyspnea with exertion, orthopnea, wheezing, stridor, hemoptysis GASTROINTESTINAL: +abd distention, abd pain, hematochezia Absent: nausea, vomiting, diarrhea, constipation, melena GENITOURINARY: Absent: dysuria, frequency, urgency, hesitancy, hematuria, flank pain, genital pain MUSCULOSKELETAL: Absent: myalgia, arthralgia, joint swelling SKIN: Absent: rash, itching, pallor HEMATOLOGIC/IMMUNOLOGIC: Absent: easy bleeding, easy bruising, lymphadenopathy, frequent infections ENDOCRINE:Absent: unexplained weight gain, unexplained weight loss, heat intolerance, cold intolerance *Physical Exam - Vital Signs Last Vital Signs Temp Pulse Resp BP Pulse Ox 99.4 F 88 18 127/72 100 09/22/16 14:14 09/22/16 14:14 09/22/16 14:14 09/22/16 14:14 09/22/16 14:14 - Physical Exam Comments: GENERAL: Well developed, well nourished. Lethargic and oriented to self only. Can follow some basic commands. HEENT: Normocephalic, atraumatic. No conjunctival pallor. NECK: Supple. Full ROM. CARDIOVASCULAR: Regular rate and rhythm. No murmurs, rubs, or gallops. Distal pulses are 2+ and symmetric. PULMONARY: No evidence of respiratory distress. Lungs clear to auscultation bilaterally. No wheezing, rales or rhonchi. ABDOMINAL: Lower abdominal fullness and distention. No pain with palpation. MUSCULOSKELETAL: Normal range of motion at all joints. No bony deformities or tenderness. No CVA tenderness. EXTREMITIES: No cyanosis. No clubbing. No edema. RECTAL: +Enlarged prostate. +Stool with some slight pink discoloration. SKIN: Warm and dry. Normal capillary refill. No rashes. No jaundice. NEUROLOGICAL: Lethargic. Oriented to self only. Diminished sound in speech. PSYCHIATRIC: Dementia. 09/22/16 17:45 Heart Score/ECG Review - ECG Intrepretation Comment:: 09/22/16 17:25 NSR @ 82 bpm ED Treatment Course - LABORATORY CBC & Chemistry Diagram: 09/22/16 14:49 09/22/16 14:49 - ADDITIONAL ORDERS Additional order review: Laboratory Results 09/22/16 09/22/16 14:49 14:16 Sodium 142 Potassium 4.5 Chloride 105 Carbon Dioxide 27 Anion Gap 10 BUN 37 H D Creatinine 0.9 D Creat Clearance w eGFR > 60 Random Glucose 100 Calcium 9.5 D Magnesium 2.6 H D Total Bilirubin 0.5 D AST 38 H ALT 29 D Alkaline Phosphatase 73 D Total Protein 7.6 D Albumin 3.1 L D Stool Occult Blood Positive 09/22/16 14:49 RBC 4.14 D MCV 91.9 MCHC 32.5 RDW 16.1 H D MPV 8.4 Neutrophils % 83.0 H Lymphocytes % 7.5 L D Monocytes % 0.6 L D Eosinophils % 0.2 D - RADIOLOGY Radiology Studies Ordered: Category Date Time Status CXRPORT [CHEST X-RAY PORTABLE*] [RAD] Urgent Radiology 09/22/16 14:48 Completed Medical Decision Making - Medical Decision Making 81 y/o M w/PMH of BPH and parkinsons presents to ER w/ c/o progressively worsening weakness and mental status over last 1 month since being discharged from rehab s/p L femur fracture according to family. Pt was poor historian. According to family pt complained of abd pain 1 week ago but since then has not complained of pain. He has not been eating and drinking as much over the last few days as well. Family denies any fevers or chills, nausea, vomiting. According to family he has had some abdominal distention over the last few days to week. He has also had some blood in stool since this morning but family says it was not much. Pt gets diaper changed 1-2x per day but does not tell family when he has wet the diaper. EKG ordered, Labs ordered - CBC, CMP, TSH, Mg, stool for occult blood. Imaging ordered: CXR, Head CT CXR shows possible RLL pna Head CT: No CT evidence of acute intracranial pathology. Elam catheter placed and 2L + of urine drained. UA sent. WBC count 15.4 09/22/16 17:39 UA w/8 WBC Pt's AMS over last month is most likely secondary to UTI with urinary retention. Pt given one dose of ceftriaxone. To be admitted for AMS secondary to UTI w/urinary retention. 09/22/16 18:29 Dr. Glez covering for PMD contacted regarding pt. Pt to be admitted. 09/22/16 19:00 Pt has history of ESBL Pt will be given one dose of Imipenem. *DC/Admit/Observation/Transfer Diagnosis at time of Disposition: Urinary retention UTI (urinary tract infection) Qualifiers: Urinary tract infection type: acute cystitis Hematuria presence: with hematuria Qualified Code(s): N30.01 - Acute cystitis with hematuria Altered mental status Qualifiers: Altered mental status type: unspecified Qualified Code(s): R41.82 - Altered mental status, unspecified - Discharge Dispostion Condition at time of disposition: Guarded Admit: Yes - Referrals
[2016-09-22] MEDS ORDERED: SODIUM CHLORIDE 1,000 ML IV STA (16:35)
[2016-09-22 16:46] LABS: URINE APPEARANCE CLOUDY; URINE BILIRUBIN NEGATIVE (NEGATIVE); URINE BLOOD 3+ (NEGATIVE); URINE COLOR DKYELLOW; URINE GLUCOSE (UA) NEGATIVE (NEGATIVE); URINE KETONE TRACE (NEGATIVE); URINE LEUK ESTERASE NEGATIVE (NEGATIVE); URINE NITRITE NEGATIVE (NEGATIVE); URINE PROTEIN 2+ (NEGATIVE); URINE UROBILINOGEN NEGATIVE E.U./dl (0.2-1.0)
[2016-09-22 16:51] LABS: CALCIUM OXALATE CRYSTALS FEW /hpf (NONE SEEN); URINE RBC 176 /hpf (0-3); URINE WBC 8 /hpf (3-5); YEAST RARE
[2016-09-22] MEDS ORDERED: CEFTRIAXONE 1 GM in DEXTROSE 5%-WATER - 50 ML IVPB ONE (17:02)
[2016-09-22] MEDS ORDERED: CEFTRIAXONE 50 ML ONE (18:19)
[2016-09-22] MEDS ORDERED: IMIPENEM/CILASTATIN SODIUM 500 MG in SODIUM CHLORIDE 100 ML IVPB ONE (19:01)
[2016-09-22] MEDS ORDERED: TAMSULOSIN HCL 0.4 MG CAP.ER.24H (FP) PO ONE (21:29)
[2016-09-22] MEDS: DUTASTERIDE 0.5 MG CAP (FP) PO SCH (22:05)
[2016-09-22] MEDS: CARBIDOPA/LEVODOPA 25/100 TABLET (FP) PO SCH (22:05)
[2016-09-23 04:50] VITALS: BMI 19.3
[2016-09-23 07:43] LABS: MCH 30.1 pg (25.7-33.7); MCHC 32.9 g/dl (32.0-35.9); MEAN CELL VOLUME 91.6 fl (80-96); MEAN PLT VOLUME 8.7 fl (7.5-11.1); PLATELET COUNT 334 K/MM3 (134-434); RDW 16.1 % (11.9-15.9); WHITE BLOOD COUNT 14.1 K/mm3 (4.0-10.0)
[2016-09-23 08:29] LABS: ALBUMIN 2.6 g/dl (3.4-5.0); ALK PHOS 66 U/L (45-117); ANION GAP 10 (8-16); BILIRUBIN,TOTAL 0.7 mg/dL (0.2-1.0); CALCIUM 8.6 mg/dL (8.5-10.1); CO2 26 mmol/L (21-32); COCKROFT - GAULT 69.99; CREATININE 0.7 mg/dL (0.7-1.3); GLUCOSE,RANDOM 90 mg/dL (74-106); SGOT/AST 36 U/L (15-37); SGPT/ALT 12 U/L (12-78); TOT PROT 6.4 g/dl (6.4-8.2)
--- NOTE | 2016-09-23 08:38 | HP ---
DATE OF ADMISSION: DATE OF DICTATION: 09/23/2016 HISTORY OF PRESENT ILLNESS: He is a 81-year-old male who was transferred from a senior living as patient had an altered mental status and abdominal distention. Here in the emergency room, patient was found to have acute retention of urine. A Elam catheter was inserted. There was bloody urine with clots and 2 L of urine was evacuated. Patient apparently was in his usual state of health a few months ago when he had a hip fracture. Subsequently, he was placed in the senior living where he was supposed to get physiotherapy and in the last 1 week he has been getting more confused and disoriented. The family had also noticed the patient's abdomen to be slightly distended and he had complained of diffuse nonspecific abdominal pain. This and other history were obtained from reviewing medical records. Patient is able to answer some of the questions, but when asked how old he was he claimed 51. Appears to be slightly demented but does answer some of the questions that he is not having any pain now, etc. Attempt to reach the daughter and was not successful. Did not leave a message as there was no option for it. On reviewing the medical record, patient appears to be also having Parkinson disease and he has present medication Sinemet 2500 four times a day and Vesicare 10 mg daily. ALLERGIES: None. SOCIAL HISTORY: He claims he was . He does not know how many children. FAMILY HISTORY: Not available. REVIEW OF SYSTEMS: Not available. PHYSICAL EXAMINATION: Vital Signs: He has a blood pressure of 95/50, pulse rate of 81, respiratory rate of 20, temperature 98.6. General: He is not pale, nonicteric. Neck: JVD is absent. Thyroid and carotids appear normal. Heart: Regular rhythm. No murmurs. Lungs: Vesicular breathing clear. Abdomen: Benign. There is a Elam catheter that is draining bloody urine. Extremities: He is contracted and has severe rigidity. LABORATORY DATA: Basic metabolic profile is normal. Magnesium is 2.6. Comprehensive metabolic profile except for AST of 38 is within normal limits. He has a white count of 15,000 with 83% neutrophils. Urinalysis has 3+ blood, 2+ protein, negative nitrites, and WBCs of 8, RBCs of 176. ASSESSMENT AND PLAN: 1. Change in mental status is due to acute retention of urine plus medication. Would discontinue Vesicare. Elam catheter has been inserted. Benign prostatic hypertrophy is a likely possibility and prostate bleed. Would place him on Flomax and Avodart. Urology evaluation and empiric antibiotic treatment with Rocephin. 2. Parkinson disease. Continue present medications. 3. Acute retention of urine as above. JANE PIERSON M.D. [id number]
--- NOTE | 2016-09-23 09:01 | PN ---
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 (short form) - Note 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: ID Full note dictated Prior ESBL in urine so want to treat for this pending c/s Plan Stop Ceftriaxone Ertepenem Contact isolation Await c/s Suman KELLEY Problem List - Problems (1) UTI (urinary tract infection) Code(s): N39.0 - URINARY TRACT INFECTION, SITE NOT SPECIFIED Qualifiers: Urinary tract infection type: acute cystitis Hematuria presence: with hematuria Qualified Code(s): N30.01 - Acute cystitis with hematuria (2) Urinary retention Code(s): R33.9 - RETENTION OF URINE, UNSPECIFIED (3) Multiple drug resistant organism (MDRO) culture positive Code(s): Z16.24 - RESISTANCE TO MULTIPLE ANTIBIOTICS
--- NOTE | 2016-09-23 09:21 | EKG ---
Test Reason : Blood Pressure : / mmHG Vent. Rate : 082 BPM Atrial Rate : 082 BPM P-R Int : 132 ms QRS Dur : 076 ms QT Int : 372 ms P-R-T Axes : 053 046 044 degrees QTc Int : 434 ms POOR DATA QUALITY, INTERPRETATION MAY BE ADVERSELY AFFECTED NORMAL SINUS RHYTHM NONSPECIFIC ST ABNORMALITY ABNORMAL ECG WHEN COMPARED WITH ECG OF 03-JUN-2016 12:55, NO SIGNIFICANT CHANGE WAS FOUND Confirmed by JOSE M MICHELLE MD ([id number]) on 09/23/2016 9:20:40 AM Referred By: Confirmed By:JOSE M MICHELLE MD
[2016-09-23] MEDS ORDERED: CEFTRIAXONE 50 ML IVPB SCH (10:00)
[2016-09-23] MEDS: DUTASTERIDE 0.5 MG CAP (FP) PO SCH (10:08)
[2016-09-23] MEDS: CARBIDOPA/LEVODOPA 25/100 TABLET (FP) PO SCH ×4 (10:09→22:55)
--- NOTE | 2016-09-23 10:36 | CON.GU ---
Consult - History of Present Illness History of Present Illness: 81 yo male from [place] brought in for altered mental status and abdominal distention. Elam inserted in ER with 2L residual. Unable to obtain prior history from patient. 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 - Alcohol/Substance Use Hx Alcohol Use: No - Smoking History Smoking history: Never smoked Have you smoked in the past 12 months: No Home Medications - Allergies Allergies/Adverse Reactions: Allergies Allergy/AdvReac Type Severity Reaction Status Date / Time No Known Allergies Allergy Verified 09/22/16 13:26 - Home Medications Home Medications: Ambulatory Orders Carbidopa/Levodopa 25/100 [Sinemet 25/100 -] 1 each PO QID tablet 06/08/16 Solifenacin Succinate [Vesicare -] 10 mg PO DAILY 09/22/16 Physical Exam- Vital Signs: Vital Signs Temperature 98.6 F 09/23/16 06:00 Pulse Rate 81 09/23/16 06:00 Respiratory Rate 20 09/23/16 06:00 Blood Pressure 95/50 09/23/16 06:00 O2 Sat by Pulse Oximetry (%) 95 09/22/16 21:00 Renal/: Yes: Elam Present, Hematuria Labs: CBC, BMP 09/23/16 06:00 09/23/16 06:00 Problem List - Problems (1) Urinary retention Assessment/Plan: agree with stopping vesicare and starting flomax/avodart will give voiding trial when urine is clear and WBC normalized renal and bladder sono ordered await cultures Code(s): R33.9 - RETENTION OF URINE, UNSPECIFIED
[2016-09-23] MEDS: ERTAPENEM SODIUM 1 GM in SODIUM CHLORIDE 50 ML IVPB SCH (10:59)
--- NOTE | 2016-09-23 11:33 | CON.NEURO ---
Consult - History of Present Illness History of Present Illness: 81 year old male history of BPH, AND pARKINSON's disease brought to er for distension of abdomen and worsening of mental status . Patient had hip fracture and than sent [place] [facility] since than he has been detiorating. He has been spitting medication . There is no history of headtrauma or fever or histoyr of stroke or seizure. He was bladder distension and have ochoa catheter in a this time. He seems to be in bed most of time nad have developed ? contracture in lower extremity. 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 - Alcohol/Substance Use Hx Alcohol Use: No - Smoking History Smoking history: Never smoked Have you smoked in the past 12 months: No Home Medications - Allergies Allergies/Adverse Reactions: Allergies Allergy/AdvReac Type Severity Reaction Status Date / Time No Known Allergies Allergy Verified 09/22/16 13:26 - Home Medications Home Medications: Ambulatory Orders Carbidopa/Levodopa 25/100 [Sinemet 25/100 -] 1 each PO QID tablet 06/08/16 Solifenacin Succinate [Vesicare -] 10 mg PO DAILY 09/22/16 Physical Exam-Neuro Vital Signs: Vital Signs Temperature 98.8 F 09/23/16 10:00 Pulse Rate 84 09/23/16 10:00 Respiratory Rate 18 09/23/16 10:00 Blood Pressure 102/52 09/23/16 10:00 O2 Sat by Pulse Oximetry (%) 95 09/22/16 21:00 Labs: CBC, BMP 09/23/16 06:00 09/23/16 06:00 - Neuro Exam Level Of Consciousness: Yes: Alert Eyes: Yes: PERRL DTR's: 2+ Left Bicep, 2+ Right Bicep Babinski: Absent Gait: Other NIH Stroke Scale - Total Score NIH Stroke Scale Score: 0 Imaging - Results Cat Scan: Pending, Report Reviewed Assessment/Plan 81 year old male history of BPH, AND pARKINSON's disease brought to er for distension of abdomen and worsening of mental status . Patient had hip fracture and than sent [place] [facility] since than he has been detiorating. He has been spitting medication . There is no history of headtrauma or fever or histoyr of stroke or seizure. He was bladder distension and have ochoa catheter in a this time. He seems to be in bed most of time nad have developed ? contracture in lower extremity. PMH, SH, FH , ROS ,MEDICATION reviewed in chart Neurological Examiantoin MS-opens eye tract objects and speaks in very soft voice , and hard to comprehend , oriented x 0 CN -EOMI and pupils are small and reactive no facial asymmetry . 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 Plan-- 1.suggest to obtain b12,folate tsh when next blood drawn liquid sinemet is not available and suggest to crush regular sinemet and mixed with water or apple sauce . if not better on one tab qid , sinemet can be increased to two tab po tid , before we give up on medication that it is not helping him, as usually it does not respond to Lewy body dementia. 2.PT 3.swallow evaluation 4.consider peg tube 5.prognosis is guarded -
--- NOTE | 2016-09-23 13:29 | PN ---
TAWANNA Cordero Note Chief Complaint: pt seen and examined yesterday. r/p sono pending - Objective Vital Signs: Vital Signs Temperature 98.8 F 09/23/16 10:00 Pulse Rate 84 09/23/16 10:00 Respiratory Rate 18 09/23/16 10:00 Blood Pressure 102/52 09/23/16 10:00 O2 Sat by Pulse Oximetry (%) 95 09/23/16 09:00 Labs/Additional Data: CBC, BMP 09/23/16 06:00 09/23/16 06:00 Assessment/Plan pt will need a trial at voiding increase flomax 0.8 po qhs will need tuvp please keep npo after breakfast sunday am trial at voiding
--- NOTE | 2016-09-23 14:53 | CONS ---
DATE OF CONSULTATION: 09/23/2016 HISTORY OF PRESENT ILLNESS: This is a 81-year-old male with known Parkinson disease and worsening mental status over the last month, recently discharged from a rehab for PT for a left femur fracture according to the family. The patient is a poor historian. He has not been eating and drinking as much over the last several days and no fevers, chills, nausea or vomiting were documented. He is admitted now with progressive generalized weakness and worsening mental status and here was found to be in urinary retention. A Elam catheter was inserted with blood urine with clots evacuated. He was empirically treated with ceftriaxone and he was given a dose of imipenem I assume based on a prior urine culture with an ESBL organism. PAST MEDICAL HISTORY: As noted above. MEDICATIONS: Include Avodart, Sinemet, Flomax. ALLERGIES: None known. SOCIAL HISTORY: Never smoked and no history of alcohol use. FAMILY HISTORY: The patient unable to provide. REVIEW OF SYSTEMS: Respiratory: No cough or shortness of breath, exertional dyspnea. Cardiac: No chest pain, palpitations, syncope. Gastrointestinal: Mild abdominal distention noted previously. No blood per rectum, diarrhea, hematochezia, abdominal pain. Genitourinary: Urinary retention with clots noted. Endocrine: No unexplained weight gain or weight loss. PHYSICAL EXAMINATION: General: This is an alert, frail-appearing, elderly male. Vital Signs: Temperature on admission 99.5, pulse 85, blood pressure 117/62, respirations 20. Neck: Supple, no adenopathy. Lungs: Clear to P and A. Heart: S1, S2 regular rhythm without murmur. Abdomen: Soft, nontender without hepatosplenomegaly. : Elam catheter draining bloody urine with clots. Extremities: No clubbing, cyanosis or edema. LABORATORY DATA: White count on admission 14.1, hemoglobin 11.8, platelets 334. BUN 27, creatinine 0.7. Liver enzymes within normal limits. Urinalysis showed 3+ blood. 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 Chest CT scan shows no acute infiltrate seen. ASSESSMENT: A 81-year-old male with dementia, Parkinson disease with urinary retention, hematuria and prior ESBL E. coli, low-grade temperature, elevated white count noted. PLAN: Discontinued ceftriaxone. Place him on contact isolation. Ertapenem 1 g IV daily pending repeat blood and urine cultures. Urology consultation. BENTON CHOI M.D. [id number]
--- NOTE | 2016-09-23 14:59 | PN ---
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 (short form) - Note 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: GI CONSULTATION: PLEASE SEE THE COMPLETE DICTATION IN BRIEF: 81M UNABLE TO ELICIT HX DUE TO OMS/PARKINSONS DZ HAD COLON 2002 WITH TICS/ROIDS NOT SEEN SINCE BY US NOW ADMIT WITH CHANGE IN MS AND FOUND TO HAVE G+ STOOL NO GI C/O NOTED BY FAMILY ABD EXAM BENIGN CHARLY: GALEAS, LOOSE STOOL g++ HGB STABLE UNCLEAR ETIOL OF G+ STOOL UNCLEAR A DX EVAL. CLINICALLY INDICATED AT THIS TIME IN THE PATIENT WITH OMS, UNLESS FAMILY INSISTS UPON SUCH OR IF IT WOULD ALTER RX OR IF PT NEEDING PRBC'S FOR NOW, WHILE IN HOSPITAL WOULD RX WITH PPI PO AND F/U H/H AND TREAT UROSEPSIS OBSERVE/SUPP ORTIVE CARE PLEASE RECALL NEEDED THANK YOU, MD ELEONORA
--- NOTE | 2016-09-23 15:52 | CONS ---
DATE OF CONSULTATION: 09/23/2016 GASTROENTEROLOGY CONSULTATION REASON FOR CONSULTATION: I was asked by Dr. Stanley to evaluate the patient for guaiac-positive stool. HISTORY OF PRESENT ILLNESS: The patient is a 81-year-old white male who has underlying dementia. He is non-communicative and it is not possible to elicit any medical history at this time. Therefore, the history comes from the patient's medical record. Apparently the patient was seen by us in our office back in 2002, approximately 14 years ago. At that time he underwent colonoscopy with and was noted to have diverticulosis and hemorrhoids. We had not seen him since that time. The patient apparently is now admitted to the hospital. He has past medical history of BPH and Parkinson disease, according to the medical record, and he was admitted with weakness, change in mental status for the past month and cognitive decline. Apparently the patient was at a rehab facility and became confused and this progressed. There are no reports of any recent GI complaints. No nausea, vomiting, abdominal pain, rectal bleeding or tarry stools. It is unclear whether the patient has had any follow-up GI evaluation since we had seen him 14 years ago. There is a report that someone noted that there was some blood in his stool the morning of admission, but not much. It is unclear whether the family member had seen that, but there is no report of any fever, chills, sweats, nausea, vomiting or inability to eat. Again, there is no obtainable medical history at this time. The patient has dementia and Parkinson's. He is on Sinemet as well as VESIcare. Other than that, the patient is not able to elicit whether he has had any abdominal pain surgery. It appears he has had cholecystectomy in the past. It reports that he does not smoke, drink or use any substances. When he came in, he was noted to have some guaiac-positive stool and a hemoglobin of 12.3. There was no active bleeding noted at that time. The patient was seen by Infectious Disease in consultation and it was noted that he had prior ESBL in the urine, and he was started on antibiotics because of this. He was also seen by Urology as well as Neurology. At the present time his medications include Avodart, ertapenem, Sinemet. Initially he had gotten a dose of ceftriaxone and imipenem. Any other medication history is unobtainable at this time. PHYSICAL EXAMINATION: Vitals: He is currently afebrile. His vital signs are stable. His heart rate is in the 80s. His blood pressure is 102/52. General: He is an elderly-appearing gentleman. He appears older than his age of 81. HEENT: He is edentulous. His mouth is wide open and dry. Neck: Supple. Heart: Regular. Abdomen: Soft. Bowel sounds are active. There are no masses, rebound or guarding. Rectal: Exam reveals loose brown stool that is strongly guaiac positive. DIAGNOSTIC STUDIES: His lab data is notable in that his sodium is 145, potassium 4.3, chloride 109, bicarbonate 26, BUN 27, creatinine 0.9. Initial BUN was 37. His calcium and magnesium are normal, as are his liver injury tests. After hydration, it appears his albumin level is 2.6. His white count was 15.4 on admission and today it is down to 14; hemoglobin 11.8; hematocrit 36; MCV level of 92; and platelets 334,000. It looks like he has not had any GI films for evaluation at this time. IMPRESSION: The patient is a 81-year-old gentleman who has underlying dementia and Parkinson's, without other known history. He had colonoscopy with our group 14 years ago, revealing diverticulosis and hemorrhoids. It is unclear if he has been seen elsewhere since that time. He comes in with change in mental status and is being treated by Infectious Disease for urosepsis. He is noted to have guaiac-positive stool, both in the computer system and on my digital exam. He does not have melena or evidence of active bleeding, and I do not think he needs any emergent investigation at this time. RECOMMENDATIONS: The finding of a guaiac-positive stool in this gentleman, the workup would really depend on what the family's wishes were. Based on his clinical status and what appears to be significant dementia, it is unclear that a diagnostic evaluation is warranted. However, if this is going to alter treatment or if he is going to warrant packed cells, then we could consider an elective GI investigation in the future. For now I would add a proton-pump inhibitor to the regimen, while he is hospitalized and having guaiac-positive stools, and follow up his hemoglobin and hematocrit. We will continue to be available to aid in the management of this patient as needed. DEEP CREWS M.D. WILIAN/[id number]
--- NOTE | 2016-09-24 08:11 | PN ---
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 09/22/16 19:12 Blood - Peripheral Venous Blood Culture - Preliminary NO GROWTH OBTAINED AFTER 24 HOURS, INCUBATION TO CONTINUE FOR 4 DAYS. Laboratory Tests 09/22/16 09/23/16 09/23/16 14:49 06:00 06:00 WBC 15.4 H D 14.1 H BUN 27 H D Creatinine 0.7 D Assessment Hematuria Component of infection as well/Retension History of ESBL Plan Same antibiotic pending c/s Suman KELLEY Problem List - Problems (1) UTI (urinary tract infection) Code(s): N39.0 - URINARY TRACT INFECTION, SITE NOT SPECIFIED Qualifiers: Urinary tract infection type: acute cystitis Hematuria presence: with hematuria Qualified Code(s): N30.01 - Acute cystitis with hematuria (2) Urinary retention Code(s): R33.9 - RETENTION OF URINE, UNSPECIFIED (3) Multiple drug resistant organism (MDRO) culture positive Code(s): Z16.24 - RESISTANCE TO MULTIPLE ANTIBIOTICS
[2016-09-24] MEDS: DUTASTERIDE 0.5 MG CAP (FP) PO SCH (09:00)
[2016-09-24] MEDS: CARBIDOPA/LEVODOPA 25/100 TABLET (FP) PO SCH ×4 (09:00→22:18)
[2016-09-24] MEDS: ERTAPENEM SODIUM 1 GM in SODIUM CHLORIDE 50 ML IVPB SCH (09:01)
--- NOTE | 2016-09-24 12:23 | PN ---
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 (short form) - Note 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: No fever No pain O/E Vital Signs Period Temp Pulse Resp BP Sys/Walker Pulse Ox Last 24 Hr 98.8 F-100.2 F 83-97 17-20 84-112/43-66 95 More awake today Heart regular Lungs clear Abd soft Ext no edema Current Medications Carbidopa/Levodopa (Sinemet 25/100 -) 1 each PO QID SHADI Last Admin: 09/24/16 09:00 Dose: 1 each Dutasteride (Avodart -) 0.5 mg PO DAILY SHADI Last Admin: 09/24/16 09:00 Dose: 0.5 mg Ertapenem 1 gm/ Sodium (Chloride) 50 mls @ 50 mls/hr IVPB DAILY SHADI PRN Reason: Protocol Last Admin: 09/24/16 09:01 Dose: 50 mls/hr Vital Signs Period Temp Pulse Resp BP Sys/Walker Pulse Ox Last 24 Hr 98.8 F-100.2 F 83-97 -20 84-112/43-66 95 Laboratory Results - last 24 hr 09/23/16 09/23/16 09/24/16 06:00 12:00 06:45 Vitamin B12 756 Cancelled TSH 1.43 D A&P 1.Acute retention of urine s/p catheter. Cont Flomax and Avodart Urology noted 2.Hematuria Resolving 3.Parkinsonism Neuro noted. Cont pesent care
[2016-09-25] MEDS ORDERED: TAMSULOSIN HCL 0.4 MG CAP.ER.24H (FP) PO ONE ×2 (08:42→11:30)
--- NOTE | 2016-09-25 10:37 | PN ---
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 (short form) - Note 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: ID Ertepenem Selected Entries 09/25/16 06:37 Temperature 99.2 F Pulse Rate 87 Respiratory 20 Rate Blood Pressure 106/60 Microbiology 09/22/16 16:54 Urine - Urine Elam Urine Culture - Final Alpha Hemolytic Streptococcus 09/22/16 19:12 Blood - Peripheral Venous Blood Culture - Preliminary NO GROWTH OBTAINED AFTER 48 HOURS, INCUBATION TO CONTINUE FOR 3 DAYS. 09/22/16 19:12 Blood - Peripheral Venous Blood Culture - Preliminary NO GROWTH OBTAINED AFTER 48 HOURS, INCUBATION TO CONTINUE FOR 3 DAYS. Assessment Urinary retension alpha strep in the urine Plan Ceftriaxone through today then keflex few days Suman KELLEY Problem List - Problems (1) UTI (urinary tract infection) Code(s): N39.0 - URINARY TRACT INFECTION, SITE NOT SPECIFIED Qualifiers: Urinary tract infection type: acute cystitis Hematuria presence: with hematuria Qualified Code(s): N30.01 - Acute cystitis with hematuria (2) Urinary retention Code(s): R33.9 - RETENTION OF URINE, UNSPECIFIED (3) Multiple drug resistant organism (MDRO) culture positive Code(s): Z16.24 - RESISTANCE TO MULTIPLE ANTIBIOTICS
[2016-09-25] MEDS: ERTAPENEM SODIUM 1 GM in SODIUM CHLORIDE 50 ML IVPB SCH (10:39)
[2016-09-25] MEDS: CEFTRIAXONE 50 ML IVPB SCH (11:09)
[2016-09-25] MEDS: CARBIDOPA/LEVODOPA 25/100 TABLET (FP) PO SCH ×4 (11:09→21:47)
[2016-09-25] MEDS: DUTASTERIDE 0.5 MG CAP (FP) PO SCH (11:09)
--- NOTE | 2016-09-25 11:10 | PN ---
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, Physician Chief Complaint: Unable to obtain - Current Medication List Current Medications: Active Medications Carbidopa/Levodopa (Sinemet 25/100 -) 1 each PO QID [facility] Last Admin: 09/24/16 22:18 Dose: 1 each Dutasteride (Avodart -) 0.5 mg PO DAILY [facility] Last Admin: 09/24/16 09:00 Dose: 0.5 mg Ceftriaxone Sodium (Rocephin 1gm Ivpb (Pre-Docked)) 50 mls @ 100 mls/hr IVPB DAILY [facility] - Objective Vital Signs: Vital Signs Temperature 99.2 F 09/25/16 06:37 Pulse Rate 87 09/25/16 06:37 Respiratory Rate 20 09/25/16 06:37 Blood Pressure 106/60 09/25/16 06:37 O2 Sat by Pulse Oximetry (%) 95 09/24/16 21:00 Constitutional: Yes: No Distress, Calm, Thin Cardiovascular: Yes: Regular Rate and Rhythm. No: Gallop, Murmur, Rub Respiratory: Yes: Regular, CTA Bilaterally. No: Rales, Rhonchi, Wheezes Gastrointestinal: Yes: Normal Bowel Sounds, Soft. No: Distention, Tenderness Extremities: Yes: WNL Edema: No Labs: CBC, BMP 09/23/16 06:00 Problem List - Problems (1) UTI (urinary tract infection) Assessment/Plan: -growing alpha hemolytic strep -ID following -on rocephin -monitor WBC Code(s): N39.0 - URINARY TRACT INFECTION, SITE NOT SPECIFIED Qualifiers: Urinary tract infection type: acute cystitis Hematuria presence: with hematuria Qualified Code(s): N30.01 - Acute cystitis with hematuria (2) Acute metabolic encephalopathy Assessment/Plan: -spoke with about mental status in the SNF -stated patient has become more confused since last admission -some confusion secondary to infection, but suspect underlying Parkinsons dementia as well -continue to monitor Code(s): G93.41 - METABOLIC ENCEPHALOPATHY (3) Urinary retention Assessment/Plan: -appreciate urology assistance -continue tamsulosin and avodart -ochoa placed -urology following Code(s): R33.9 - RETENTION OF URINE, UNSPECIFIED (4) Hematuria Assessment/Plan: -resolved -urology following Code(s): R31.9 - HEMATURIA, UNSPECIFIED (5) Parkinson disease Assessment/Plan: -appreciate neurology assistance -continue sinemet Code(s): G20 - PARKINSON'S DISEASE
--- NOTE | 2016-09-25 11:25 | CONS ---
DATE OF CONSULTATION: 09/22/2016 HISTORY OF PRESENT ILLNESS: The patient is a 81-year-old male who came in with lethargy, weakness, as well as altered mental status. The patient does have a history of prostatism as well as overactive bladder. ALLERGIES: In the emergency room, it was stated the patient has no allergies. MEDICATIONS: He does take for his thyroid. He is also on VESIcare for his overall bladder. PAST MEDICAL HISTORY: He has history of both skin and prostate cancer. He also has history of Parkinson disease. PAST SURGICAL HISTORY: He has undergone a cholecystectomy in the past. HABITS: The patient never smoked. PHYSICAL EXAMINATION: General: In the emergency room, the patient was confused to time, person and place. His affect was confused. The patient presently appears to be alert, in no distress but confused. Abdomen: His abdomen was tender and distended. The patient's abdomen is soft. There is no CVA tenderness. Bowel sounds were normoactive. Genitourinary: A Elam catheter was placed by the emergency room physician, and more than 800 mL of clear-colored urine was drained. Rectal: Rectal tone is poor. The prostate is 2+, benign and nontender. Extremities: No edema. There was full range of motion. DIAGNOSTIC STUDIES: Blood workup in the emergency room revealed a white count of 15,400; hemoglobin 12.3; hematocrit 38; platelets 340. BUN 37, creatinine 0.9. 100,000 TREATMENT: The patient was commenced on Zosyn and urine cultures were sent in the emergency room. DISPOSITION: The patient will be admitted to the floor for further management. ASSESSMENT: Impression at present is acute urinary retention in a 81-year-old male. PLAN: We will continue with Elam drainage and place the patient on Flomax. We will follow. Mikel [id number]
--- NOTE | 2016-09-25 12:25 | PN ---
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 Please let me know when swallowing evaluation is re-ordered.
--- NOTE | 2016-09-25 15:12 | CONSULT ---
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
--- NOTE | 2016-09-25 15:16 | CONSULT ---
Admitting History and Physical - Primary Care Physician PCP: Pedro Pablo Courtney - Admission History of Present Illness: 81 yo M hx BPH, Parkinsons presents with worsening weakness and altered mental status for the past month. Urinary retention- alpha strep in the urine per ID. On pureed diet/thin liquids. 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 - Smoking History Smoking history: Never smoked Have you smoked in the past 12 months: No - Alcohol/Substance Use Hx Alcohol Use: No History - Admission Reason For Visit: ALTERED MENTAL STATUS - General Mental Status: Awake and Alert, Confused Attention: Distractible Ability to Follow Directions: Fair Head/Neck Control: Fair - Hearing Hearing: Functional Hearing: Normal Speech Evaluation - Communication Primary Language: TRISTANIAN Communication: Yes: Simple Responses - Speech Production Dysarthria: Yes: Hypokinetic Able to Make Needs Known: Yes: Moderately Impaired Intelligibility: Yes: Moderately Impaired - Speech Characteristics Voice Loudness: Moderately Soft/Quiet Voice Pitch: Yes: Mildly High Voice Phonatory-based Quality: Yes: Dysphonia Speech Pattern: Impaired Speech Clarity: < 50% Nasal Resonance: Normal Articulation: Yes: Precise Rate of Speech: Too Fast - Swallow Evaluation/Bedside Assessment Current Nutritional Intake: Dysphagia Pureed, Thin Liquids Oral Secretions: Yes: WFL Dentition: Yes: Missing Teeth Facial Symmetry at Rest: Symmetrical Jaw Position: Open at Rest Lingual Movement: Symmetric Laryngeal Movement: Able to Palpate, Labored,delay initiation Rate of Intake: Slow/Holding Labial Seal: WFL Oral Prep Time: Increased Pocketing: None Timing of Swallow: Delayed Coughing/Throat Clear: No Recommendations - Speech Evaluation, Impression/Plan 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 Reported to be more confused than baseline, with Urinary retention- alpha strep in the urine. Hopefully, cognition will improve once UTI is cleared. - Dysphagia Impressions/Plan Dysphagia Impressions: Ongoing Evaluation *Silent aspiration: cannot be R/O at bedside - Recommendations Diet Consistency: Dysphagia Pureed Medication Administration: Crushed with applesauce Liquids: Thin Liquids Supplement: Ensure, Magic Cup
[2016-09-25] MEDS ORDERED: PT OWN MED DRAWER 7, Y5N ONE (21:46)
--- NOTE | 2016-09-25 23:34 | PN ---
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 (short form) - Note 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: 81M w severe prostatism and recurrent protatism. Trial at voiding failed. pt develops recurrent UTI's due to residual urine. Will take pt to OR in AM for TURVP. Spoke to who agrees w plan. Keep pt NPO, will obtain consent for procedure
[2016-09-26 06:26] LABS: HEMATOCRIT 32.4 % (37.5-51.0)
[2016-09-26 07:50] LABS: BASOPHIL 0.4 % (0-2.0); EOSINOPHIL 2.1 % (0-4.5); MCH 30.2 pg (25.7-33.7); MCHC 33.2 g/dl (32.0-35.9); MEAN PLT VOLUME 8.7 fl (7.5-11.1); NEUTROPHILS 83.1 % (42.8-82.8); PLATELET COUNT 348 K/MM3 (134-434); RDW 15.4 % (11.9-15.9); WHITE BLOOD COUNT 15.5 K/mm3 (4.0-10.0)
[2016-09-26 08:13] LABS: CALCIUM 8.4 mg/dL (8.5-10.1); COCKROFT - GAULT 61.24; CREATININE 0.8 mg/dL (0.7-1.3); MAGNESIUM 2.1 mg/dL (1.8-2.4); PHOSPHOROUS 3.6 mg/dL (2.5-4.9)
--- NOTE | 2016-09-26 08:16 | PN ---
TAWANNA Cordero Note Chief Complaint: pt failed trial at voiding. for or today - Objective Vital Signs: Vital Signs Temperature 100.5 F H 09/26/16 07:41 Pulse Rate 96 H 09/26/16 07:41 Respiratory Rate 20 09/26/16 07:41 Blood Pressure 144/58 09/26/16 07:41 O2 Sat by Pulse Oximetry (%) 97 09/25/16 20:50 Assessment/Plan pt for cysto tuvp today please keep npo
[2016-09-26] MEDS: CARBIDOPA/LEVODOPA 25/100 TABLET (FP) PO SCH ×4 (09:32→21:16)
[2016-09-26] MEDS: DUTASTERIDE 0.5 MG CAP (FP) PO SCH (09:32)
[2016-09-26] MEDS ORDERED: CEFTRIAXONE 50 ML IVPB SCH (10:00)
[2016-09-26] MEDS ORDERED: SODIUM CHLORIDE 500 ML IV STA ×2 (10:05→12:45)
[2016-09-26] MEDS ORDERED: SODIUM CHLORIDE 1,000 ML IV SCH ×2 (10:15→14:55)
[2016-09-26] MEDS: CEFTRIAXONE 50 ML IVPB SCH (11:14)
--- NOTE | 2016-09-26 12:06 | PN ---
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, GREASE REMOVER - Note 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: Selected Entries 09/23/16 09/23/16 09/24/16 10:00 13:08 12:42 Breakfast 25% 0 0 Lunch 25% Supper 09/24/16 09/24/16 09/25/16 15:29 19:06 15:42 Breakfast Lunch 0 75% Supper 100% 09/25/16 09/25/16 18:42 20:50 Breakfast Lunch Supper 75% 75% Much improved PO intake with downgrade to puree and thin liquid. No reported signs of aspiration.
--- NOTE | 2016-09-26 12:51 | PN ---
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, Physician Chief Complaint: Unable to obtain, very lethargic today - Current Medication List Current Medications: Active Medications Carbidopa/Levodopa (Sinemet 25/100 -) 1 each PO QID [facility] Last Admin: 09/26/16 09:32 Dose: Not Given Dutasteride (Avodart -) 0.5 mg PO DAILY [facility] Last Admin: 09/26/16 09:32 Dose: Not Given Ceftriaxone Sodium (Rocephin 1gm Ivpb (Pre-Docked)) 50 mls @ 100 mls/hr IVPB DAILY [facility] Last Admin: 09/26/16 11:14 Dose: 100 mls/hr Sodium Chloride (Normal Saline -) 1,000 mls @ 75 mls/hr IV ASDIR SHADI Last Admin: 09/26/16 10:12 Dose: 75 mls/hr Sodium Chloride (Normal Saline -) 500 mls @ 500 mls/hr IV ASDIR STA Stop: 09/26/16 13:44 - Objective Vital Signs: Vital Signs Temperature 100.4 F H 09/26/16 09:30 Pulse Rate 85 09/26/16 12:38 Respiratory Rate 16 09/26/16 12:38 Blood Pressure 85/56 09/26/16 12:38 O2 Sat by Pulse Oximetry (%) 96 09/26/16 09:00 Constitutional: Yes: Other (lethargic) Cardiovascular: Yes: Regular Rate and Rhythm. No: Gallop, Murmur, Rub Respiratory: Yes: Regular, CTA Bilaterally. No: Rales, Rhonchi, Wheezes Gastrointestinal: Yes: Normal Bowel Sounds, Soft. No: Distention, Tenderness Extremities: Yes: WNL Edema: No Labs: CBC, BMP 09/26/16 06:30 09/26/16 06:30 Problem List - Problems (1) Septic shock Code(s): A41.9 - SEPSIS, UNSPECIFIED ORGANISM R65.21 - SEVERE SEPSIS WITH SEPTIC SHOCK (2) UTI (urinary tract infection) Code(s): N39.0 - URINARY TRACT INFECTION, SITE NOT SPECIFIED Qualifiers: Urinary tract infection type: acute cystitis Hematuria presence: with hematuria Qualified Code(s): N30.01 - Acute cystitis with hematuria (3) Acute metabolic encephalopathy Code(s): G93.41 - METABOLIC ENCEPHALOPATHY (4) Urinary retention Code(s): R33.9 - RETENTION OF URINE, UNSPECIFIED (5) Hematuria Code(s): R31.9 - HEMATURIA, UNSPECIFIED (6) Parkinson disease Code(s): G20 - PARKINSON'S DISEASE Assessment/Plan (1) Septic shock -patient with fevers and hypotension -received 500mL NS bolus, originally fluid responsive but immediately began to drop again -will give second 500mL NS bolus -case d/w , at this time patient is full code -case d/w irrigationist designer to evaluate for pressor support and ICU transfer -currently HR and RR controlled, but very concerning considering hypotension (2) UTI (urinary tract infection) Assessment/Plan: -growing alpha hemolytic strep -ID following -WBC not improving -rocephin has 98.6% treatment rate, so is first choice -will d/w ID as may need zosyn but septic shock may be secondary to inflammatory response Code(s): N39.0 - URINARY TRACT INFECTION, SITE NOT SPECIFIED Qualifiers: Urinary tract infection type: acute cystitis Hematuria presence: with hematuria Qualified Code(s): N30.01 - Acute cystitis with hematuria (3) Acute metabolic encephalopathy Assessment/Plan: -very lethargic today -concerning for worsening of mental status secondary to septic shock -blood pressure support, continue antibiotics Code(s): G93.41 - METABOLIC ENCEPHALOPATHY (4) Urinary retention Assessment/Plan: -appreciate urology assistance -continue tamsulosin and avodart -ochoa placed -case d/w urology, patient is currently unstable for planned interventions today -stabilize patient before planning procedures Code(s): R33.9 - RETENTION OF URINE, UNSPECIFIED (5) Hematuria Assessment/Plan: -resolved -urology following Code(s): R31.9 - HEMATURIA, UNSPECIFIED (6) Parkinson disease Assessment/Plan: -appreciate neurology assistance -continue sinemet Code(s): G20 - PARKINSON'S DISEASE Dispo -patient is now in septic shock -case d/w , currently full code -critical care consult for possible pressor support and ICU transfer -poor prognosis 42 minutes spent in critical care time
--- NOTE | 2016-09-26 13:34 | PN ---
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 (short form) - Note 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: 81 year old male history of BPH, AND pARKINSON's disease brought to er for distension of abdomen and worsening of mental status . Patient had hip fracture and than sent to id since than he has been detiorating. He has been spitting medication . There is no history of headtrauma or fever or histoyr of stroke or seizure. He was bladder distension and have ochoa catheter in a this time. He seems to be in bed most of time nad have developed ? contracture in lower extremity. PMH, SH, FH , ROS ,MEDICATION reviewed in chart Neurological Examiantoin MS-opens eye tract objects and speaks in very soft voice , and hard to comprehend , oriented x 0 CN -EOMI and pupils are small and reactive no facial asymmetry . 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
--- NOTE | 2016-09-26 14:28 | PN ---
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 (short form) - Note 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: Urology follow up. Pt. originally scheduled for cysto possible TUVP. Spoke with his and daughter. Pt developed hypotension and was transferred ti ICU. Procedure was canceled.
--- NOTE | 2016-09-26 15:07 | CONSULT ---
Consultation: REQUESTING PROVIDER: CONSULT REQUEST: We have been asked to medically evaluate this patient for ( specify). HISTORY OF PRESENT ILLNESS: The pt is a poor historian. History is taken from medical records. 81 y/o M w/PMH of BPH and parkinsons presents to ER w/ c/o progressively worsening weakness and mental status over last 1 month since being discharged from rehab s/p L femur fracture according to family. Pt was poor historian. According to family pt complained of abd pain 1 week ago but since then has not complained of pain. He has not been eating and drinking as much over the last few days as well. Family denies any fevers or chills, nausea, vomiting. According to family he has had some abdominal distention over the last few days to week. He has also had some blood in stool since this morning but family says it was not much. Pt gets diaper changed 1-2x per day but does not tell family when he has wet the diaper. Over the course of his hospitalization he developed septic shock due to UTI. He was transferred to ICU. REVIEW OF SYSTEMS: N/A, pt is a poor historian. PHYSICAL EXAMINATION Vital Signs - 24 hr 09/25/16 09/25/16 09/25/16 15:41 16:30 20:50 Temperature 97.5 F L 98.2 F Pulse Rate 88 80 Respiratory 20 22 22 Rate Blood Pressure 132/54 O2 Sat by Pulse 97 Oximetry (%) 09/25/16 09/26/16 09/26/16 21:50 07:41 09:00 Temperature 98.2 F 100.5 F H Pulse Rate 89 96 H Respiratory 20 20 20 Rate Blood Pressure 100/45 144/58 O2 Sat by Pulse 96 Oximetry (%) 09/26/16 09/26/16 09/26/16 09:30 11:06 11:35 Temperature 100.4 F H Pulse Rate 81 80 89 Respiratory 16 16 20 Rate Blood Pressure 80/42 95/42 100/41 O2 Sat by Pulse Oximetry (%) 09/26/16 09/26/16 09/26/16 12:05 12:38 12:58 Temperature Pulse Rate 77 85 80 Respiratory 20 16 20 Rate Blood Pressure 98/45 85/56 104/48 O2 Sat by Pulse Oximetry (%) 09/26/16 09/26/16 09/26/16 13:10 13:30 13:58 Temperature Pulse Rate 81 85 87 Respiratory 22 20 22 Rate Blood Pressure 86/57 112/69 111/67 O2 Sat by Pulse Oximetry (%) 09/26/16 14:05 Temperature Pulse Rate 84 Respiratory 22 Rate Blood Pressure 103/64 O2 Sat by Pulse Oximetry (%) GENERAL: Awake, alert, lethargic, not following commands., warm to touch. HEAD: Normal with no signs of trauma. EYES: Pupils equal, round and reactive to light, extraocular movements intact not assessed, sclera anicteric, conjunctiva clear. EARS, NOSE, THROAT: Ears normal, nares patent. Dry, mucous membranes. NECK: Normal range of motion, supple without lymphadenopathy, JVD, or masses. LUNGS: Breath sounds equal, clear to auscultation bilaterally. No wheezes, and no crackles. No accessory muscle use. HEART: Regular rate and rhythm, normal S1 and S2 without murmur, rub or gallop. ABDOMEN: Soft, nontender, not distended, normoactive bowel sounds, + guarding, no rebound, pt is on the side, difficult to examine abdomen. MUSCULOSKELETAL: Not assessed, pt not following commands. UPPER EXTREMITIES: 2+ pulses, warm., No peripheral edema. LOWER EXTREMITIES: 2+ pulses, warm. No peripheral edema. NEUROLOGICAL: no facial asymmetry, no gait observed. PSYCHIATRIC: Lethargic. SKIN: Warm, no rashes or lesions noted. Laboratory Results - last 24 hr 09/24/16 09/26/16 09/26/16 06:45 06:30 06:30 WBC 15.5 H RBC 3.92 L Hgb 11.8 Hct 32.4 L 35.7 MCV 91.0 MCHC 33.2 RDW 15.4 Plt Count 348 MPV 8.7 Neutrophils % 83.1 H Lymphocytes % 7.5 L Monocytes % 6.9 D Eosinophils % 2.1 D Basophils % 0.4 Sodium 144 Potassium 4.5 Chloride 105 Carbon Dioxide 28 Anion Gap 11 BUN 23 H Creatinine 0.8 Random Glucose 103 Calcium 8.4 L Phosphorus 3.6 D Magnesium 2.1 Folate 1002 Folate Hemolysate 324.7 Active Medications Generic Name Dose Route Start Last Admin Trade Name Freq PRN Reason Stop Dose Admin Carbidopa/Levodopa 1 each 09/22/16 22:00 09/26/16 13:10 Sinemet 25/100 - PO Not Given QID [facility] Dutasteride 0.5 mg 09/22/16 21:30 09/26/16 09:32 Avodart - PO Not Given DAILY [facility] Ceftriaxone Sodium 50 mls @ 100 mls/hr 09/25/16 11:15 09/26/16 11:14 Rocephin 1gm Ivpb (Pre-Docked) IVPB 100 mls/hr DAILY [facility] Administration Sodium Chloride 1,000 mls @ 125 mls/hr 09/26/16 14:55 Normal Saline - IV 09/26/16 18:14 ASDIR [facility] Microbiology 09/22/16 19:12 Blood - Peripheral Venous Blood Culture - Preliminary NO GROWTH OBTAINED AFTER 72 HOURS, INCUBATION TO CONTINUE FOR 2 DAYS. 09/22/16 19:12 Blood - Peripheral Venous Blood Culture - Preliminary NO GROWTH OBTAINED AFTER 72 HOURS, INCUBATION TO CONTINUE FOR 2 DAYS. 09/22/16 16:54 Urine - Urine Ochoa Urine Culture - Final Alpha Hemolytic Streptococcus ASSESSMENT/PLAN: 81 y/o M w/PMH of BPH and parkinsons presents to ER w/ c/o progressively worsening weakness and mental status over last 1 month since being discharged from rehab s/p L femur fracture according to family. He is admitted to ICU for confusion, low BP and UTI. Septic shock due to UTI -growing alpha hemolytic strep -ID consulted -rocephin changed to Vancomycin and Meropenem -urine culture pending, repeated blood culture pending -ordered lactic acid -f/u WBC, today 15.5 -will monitor vital signs -will obtainb abdomen/pelvis CT w/o contrast -history of ESBL in may 2016 Urinary retention and hematuria -f/u urology recommendation -continue tamsulosin and avodart -ochoa placed -hematuria resolved Acute metabolic encephalopathy -stated patient has become more confused since last admission -some confusion secondary to infection, but suspect underlying Parkinsons dementia as well rectal bleeding: -positive for FOBT Parkinson disease -neurology f/u -continue sinemet H/O of femur fracture F/E/N; NS at rate 125 ml/hr 1 bag then we recommend to decrease to 75 ml/hr E; no electrolytes changes N: NPO Dispo: We will continue to follow the patient. Thank you for this consultative opportunity. Status: Full Code. Problem List - Problems (1) Altered mental status Code(s): R41.82 - ALTERED MENTAL STATUS, UNSPECIFIED Qualifiers: Altered mental status type: unspecified Qualified Code(s): R41.82 - Altered mental status, unspecified (2) Parkinson disease Code(s): G20 - PARKINSON'S DISEASE (3) Septic shock Code(s): A41.9 - SEPSIS, UNSPECIFIED ORGANISM R65.21 - SEVERE SEPSIS WITH SEPTIC SHOCK (4) UTI (urinary tract infection) Code(s): N39.0 - URINARY TRACT INFECTION, SITE NOT SPECIFIED Qualifiers: Urinary tract infection type: acute cystitis Hematuria presence: with hematuria Qualified Code(s): N30.01 - Acute cystitis with hematuria (5) Urinary retention Code(s): R33.9 - RETENTION OF URINE, UNSPECIFIED (6) Acute metabolic encephalopathy Code(s): G93.41 - METABOLIC ENCEPHALOPATHY (7) Fracture of trochanter of left femur Code(s): S72.102A - UNSP TROCHANTERIC FRACTURE OF LEFT FEMUR, INIT FOR CLOS FX Qualifiers: Encounter type: initial encounter Fracture type: closed Qualified Code(s): S72.102A - Unspecified trochanteric fracture of left femur, initial encounter for closed fracture (8) Hematuria Code(s): R31.9 - HEMATURIA, UNSPECIFIED Visit type - Emergency Visit Emergency Visit: Yes ED Registration Date: 09/22/16 Care time: The patient presented to the Emergency Department on the above date and was hospitalized for further evaluation of their emergent condition. - New Patient This patient is new to me today: Yes Date on this admission: 09/26/16 - Critical Care Critical Care patient: Yes Total Critical Care Time (in minutes): 50 Critical Care Statement: The care of this patient involved high complexity decision making to prevent further life threatening deterioration of the patient 's condition and/or to evalute & treat vital organ system(s) failure or risk of failure.
--- NOTE | 2016-09-26 15:21 | PN ---
Teaching Attending Note Name of Resident: Michelle Mishra ATTENDING PHYSICIAN STATEMENT I saw and evaluated the patient. I reviewed the resident's note and discussed the case with the resident. I agree with the resident's findings and plan as documented. SUBJECTIVE: Patient seen and examined in the ICU. In brief, 81 M, BPH, dementia, (?) parkinsons. Admitted via the ER due to progressive weakness and mental status over last 1 month. He apparently had a Left femur fracture. According to the chart, patient reported abdominal pain 1 week. He has had poor oral intake. Being treated for suspected UTI. Now transferred to the ICU for suspected sepsis. Patient is awake and responsive but confused. Intake & Output 09/23/16 09/24/16 09/25/16 09/26/16 23:59 23:59 23:59 23:59 Intake Total 440 220 Output Total 1400 750 700 250 Balance -960 -530 -700 -250 Last Vital Signs Temp Pulse Resp BP Pulse Ox 100.4 F H 84 22 103/64 96 09/26/16 09:30 09/26/16 14:05 09/26/16 14:05 09/26/16 14:05 09/26/16 09:00 Active Medications Carbidopa/Levodopa (Sinemet 25/100 -) 1 each PO QID [facility] Last Admin: 09/26/16 13:10 Dose: Not Given Dutasteride (Avodart -) 0.5 mg PO DAILY [facility] Last Admin: 09/26/16 09:32 Dose: Not Given Ceftriaxone Sodium (Rocephin 1gm Ivpb (Pre-Docked)) 50 mls @ 100 mls/hr IVPB DAILY [facility] Last Admin: 09/26/16 11:14 Dose: 100 mls/hr Sodium Chloride (Normal Saline -) 1,000 mls @ 125 mls/hr IV ASDIR [facility] Stop: 09/26/16 18:14 GENERAL: Awake, responsive, confused HEAD: Normal with no signs of trauma. EYES: Pupils equal, extraocular movements intact, sclera anicteric EARS, NOSE, THROAT: oropharynx clear without exudates. dry mucous membranes. NECK: Normal range of motion, supple without lymphadenopathy, JVD, or masses. LUNGS: Decreased BS at the bases. No wheezes, and no crackles. No accessory muscle use. HEART: Regular rate and rhythm, normal S1 and S2 without murmur, rub or gallop. ABDOMEN: Soft, nontender, not distended, (+) BS, no guarding, no rebound, no masses. No hepatomegaly or splenomegaly. MUSCULOSKELETAL: Normal range of motion at all joints. No bony deformities or tenderness. No CVA tenderness. UPPER EXTREMITIES: warm, contracted LOWER EXTREMITIES: warm, contracted, no peripheral edema. NEUROLOGICAL: contracted SKIN: Warm, dry, normal turgor, no rashes or lesions noted. Laboratory Results - last 24 hr 09/24/16 09/26/16 09/26/16 06:45 06:30 06:30 WBC 15.5 H RBC 3.92 L Hgb 11.8 Hct 32.4 L 35.7 MCV 91.0 MCHC 33.2 RDW 15.4 Plt Count 348 MPV 8.7 Neutrophils % 83.1 H Lymphocytes % 7.5 L Monocytes % 6.9 D Eosinophils % 2.1 D Basophils % 0.4 Sodium 144 Potassium 4.5 Chloride 105 Carbon Dioxide 28 Anion Gap 11 BUN 23 H Creatinine 0.8 Random Glucose 103 Calcium 8.4 L Phosphorus 3.6 D Magnesium 2.1 Folate 1002 Folate Hemolysate 324.7 IMP: R/O sepsis from a source due to alpha hemolytic Streptococcus BPH Parkinsons S/P Left femur fracture Urinary retention Toxic Metabolic Encephalopathy (?) Rectal bleed ABX per ID O2 as needed Strict I&O Aspiration precautions IVF Check lactic acid VTE prophylaxis Need to clarify GOC with family Dr Duncan critical care time spent in reviewing chart, evaluating patient and formulating plan 40 min
--- NOTE | 2016-09-26 16:35 | PN ---
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 (short form) - Note 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: febrile and hypotensive sent to ICU persistent leukocytosis Vital Signs Period Temp Pulse Resp BP Sys/Walker Pulse Ox Last 24 Hr 98.2 F-100.6 F 77-96 16-22 80-144/41-69 96-97 flushed cor-rrr lungs decreased bs at bases abd soft, difficult exam patient with contracted extremities CBC, BMP +ochoa 09/26/16 06:30 09/26/16 06:30 Microbiology 09/22/16 19:12 Blood - Peripheral Venous Blood Culture - Preliminary NO GROWTH OBTAINED AFTER 72 HOURS, INCUBATION TO CONTINUE FOR 2 DAYS. 09/22/16 19:12 Blood - Peripheral Venous Blood Culture - Preliminary NO GROWTH OBTAINED AFTER 72 HOURS, INCUBATION TO CONTINUE FOR 2 DAYS. 09/22/16 16:54 Urine - Urine Ochoa Urine Culture - Final Alpha Hemolytic Streptococcus cxray rotated a/p sepsis persistent leukocytosis history of esbl ecoli in May switch to vanco/meropenem ct scan abd/pelvis- ?obstruction, ?prostatic abscess cultures parkinsons disease s/p femur fracture d/w ICU resident chart review and exam 35 minutes spent in the care of this critically ill patient just transferred to ICU
[2016-09-26] MEDS ORDERED: VANCOMYCIN 1 GRAM (PRE-DOCKED) 250 ML IVPB ONE (16:41)
[2016-09-26] MEDS: MEROPENEM 500 MG in DEXTROSE 5%-WATER - 100 ML IVPB SCH (17:36)
[2016-09-26] MEDS ORDERED: MEROPENEM 500 MG VIAL (RESTRICTED TO ID) IVPB SCH (18:00)
[2016-09-26] MEDS ORDERED: ACETAMINOPHEN 1000 MG/100 ML VIAL (NON FORMULARY) IVPB PRN (20:17)
[2016-09-26] MEDS: DEXTROSE 5%-NORMAL SALINE 1,000 ML IV SCH (21:15)
[2016-09-27] MEDS: MEROPENEM 500 MG in DEXTROSE 5%-WATER - 100 ML IVPB SCH ×3 (02:44→17:20)
[2016-09-27 06:18] LABS: BASOPHIL 0.6 % (0-2.0); EOSINOPHIL 2.7 % (0-4.5); MCH 29.9 pg (25.7-33.7); MCHC 32.8 g/dl (32.0-35.9); MEAN PLT VOLUME 8.9 fl (7.5-11.1); NEUTROPHILS 80.4 % (42.8-82.8); PLATELET COUNT 351 K/MM3 (134-434); RDW 15.3 % (11.9-15.9); WHITE BLOOD COUNT 13.8 K/mm3 (4.0-10.0)
[2016-09-27 06:45] LABS: CALCIUM 7.9 mg/dL (8.5-10.1); CREATININE 0.6 mg/dL (0.7-1.3); MAGNESIUM 2.1 mg/dL (1.8-2.4); PHOSPHOROUS 2.8 mg/dL (2.5-4.9)
[2016-09-27] MEDS ORDERED: PT OWN MED DRAWER 7, Y5N ONE ×2 (09:47→17:19)
[2016-09-27] MEDS: CARBIDOPA/LEVODOPA 25/100 TABLET (FP) PO SCH ×4 (09:52→22:56)
--- NOTE | 2016-09-27 09:53 | PN ---
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 (short form) - Note 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: stable overnight low grade temps much more alert and awake today Vital Signs Period Temp Pulse Resp BP Sys/Walker Pulse Ox Last 24 Hr 99.4 F-101.3 F 65-89 14-22 85-120/40-69 94-100 cor-rrr lungs decreased bs at bases abd soft,nt ext no edema ochoa CBC, BMP 09/27/16 05:10 09/27/16 05:10 Microbiology 09/22/16 19:12 Blood - Peripheral Venous Blood Culture - Preliminary NO GROWTH OBTAINED AFTER 96 HOURS, INCUBATION TO CONTINUE FOR 1 DAYS. 09/22/16 19:12 Blood - Peripheral Venous Blood Culture - Preliminary NO GROWTH OBTAINED AFTER 96 HOURS, INCUBATION TO CONTINUE FOR 1 DAYS. 09/22/16 16:54 Urine - Urine Ochoa Urine Culture - Final Alpha Hemolytic Streptococcus ct scan- no gross abscess, markedly limited study Current Medications Acetaminophen (Ofirmev Injection -) 1,000 mg IVPB Q6H PRN PRN Reason: FEVER OR PAIN Stop: 09/27/16 14:18 Last Admin: 09/26/16 21:15 Dose: 1,000 mg Carbidopa/Levodopa (Sinemet 25/100 -) 1 each PO QID [facility] Last Admin: 09/26/16 21:16 Dose: Not Given Dutasteride (Avodart -) 0.5 mg PO DAILY [facility] Last Admin: 09/26/16 09:32 Dose: Not Given Meropenem 500 mg/ Dextrose 100 mls @ 100 mls/hr IVPB Q8H-IV [facility] Last Admin: 09/27/16 02:44 Dose: 100 mls/hr Dextrose/Sodium Chloride (D5-Ns -) 1,000 mls @ 75 mls/hr IV ASDIR [facility] Last Admin: 09/26/16 21:15 Dose: 75 mls/hr cxray rotated a/p sepsis persistent leukocytosis history of esbl ecoli in May switch to vanco/meropenem ct scan abd/pelvis- unremarkable f/u cultures parkinsons disease s/p femur fracture d/w ICU resident chart review and exam 35 minutes spent in the care of this critically ill patient just transferred to ICU
--- NOTE | 2016-09-27 11:28 | PN ---
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, Physician Chief Complaint: Unable to obtain but opens eyes and mumbles today. - Current Medication List Current Medications: Active Medications Acetaminophen (Ofirmev Injection -) 1,000 mg IVPB Q6H PRN PRN Reason: FEVER OR PAIN Stop: 09/27/16 14:18 Last Admin: 09/26/16 21:15 Dose: 1,000 mg Carbidopa/Levodopa (Sinemet 25/100 -) 1 each PO QID [facility] Last Admin: 09/27/16 09:52 Dose: 1 each Dutasteride (Avodart -) 0.5 mg PO DAILY [facility] Last Admin: 09/26/16 09:32 Dose: Not Given Meropenem 500 mg/ Dextrose 100 mls @ 100 mls/hr IVPB Q8H-IV [facility] Last Admin: 09/27/16 09:52 Dose: 100 mls/hr Dextrose/Sodium Chloride (D5-Ns -) 1,000 mls @ 75 mls/hr IV ASDIR [facility] Last Admin: 09/26/16 21:15 Dose: 75 mls/hr - Objective Vital Signs: Vital Signs Temperature 99.6 F 09/27/16 10:00 Pulse Rate 80 09/27/16 10:00 Respiratory Rate 18 09/27/16 10:00 Blood Pressure 108/40 09/27/16 10:00 O2 Sat by Pulse Oximetry (%) 96 09/27/16 09:00 Constitutional: Yes: No Distress, Thin, Other (slightly lethargic, much improved from yesterday) Cardiovascular: Yes: Regular Rate and Rhythm. No: Gallop, Murmur, Rub Respiratory: Yes: Regular, CTA Bilaterally. No: Rales, Rhonchi, Wheezes Gastrointestinal: Yes: Normal Bowel Sounds, Soft. No: Distention, Tenderness Extremities: Yes: WNL Edema: No Labs: CBC, BMP 09/27/16 05:10 09/27/16 05:10 Problem List - Problems (1) Septic shock Code(s): A41.9 - SEPSIS, UNSPECIFIED ORGANISM R65.21 - SEVERE SEPSIS WITH SEPTIC SHOCK (2) UTI (urinary tract infection) Code(s): N39.0 - URINARY TRACT INFECTION, SITE NOT SPECIFIED Qualifiers: Urinary tract infection type: acute cystitis Hematuria presence: with hematuria Qualified Code(s): N30.01 - Acute cystitis with hematuria (3) Acute metabolic encephalopathy Code(s): G93.41 - METABOLIC ENCEPHALOPATHY (4) Urinary retention Code(s): R33.9 - RETENTION OF URINE, UNSPECIFIED (5) Hematuria Code(s): R31.9 - HEMATURIA, UNSPECIFIED (6) Parkinson disease Code(s): G20 - PARKINSON'S DISEASE Assessment/Plan (1) Septic shock -resolved today -blood pressure stabilized on change in antibiotics and fluids -still with leukocytosis, so sepsis but no longer septic shock -continue current management (2) UTI (urinary tract infection) Assessment/Plan: -appreciate ID assistance -changed antibiotics to vancomycin and meropenem -improved today -d/w , understands patient's condition and improvement Code(s): N39.0 - URINARY TRACT INFECTION, SITE NOT SPECIFIED Qualifiers: Urinary tract infection type: acute cystitis Hematuria presence: with hematuria Qualified Code(s): N30.01 - Acute cystitis with hematuria (3) Acute metabolic encephalopathy Assessment/Plan: -still lethargic but improved -continue hydration and antibiotics as above Code(s): G93.41 - METABOLIC ENCEPHALOPATHY (4) Urinary retention Assessment/Plan: -appreciate urology assistance -continue tamsulosin and avodart -ochoa placed -when stable, will d/w urology about timing of procedure Code(s): R33.9 - RETENTION OF URINE, UNSPECIFIED (5) Hematuria Assessment/Plan: -resolved -urology following Code(s): R31.9 - HEMATURIA, UNSPECIFIED (6) Parkinson disease Assessment/Plan: -appreciate neurology assistance -continue sinemet Code(s): G20 - PARKINSON'S DISEASE Dispo -much improved but still with sepsis -continue ICU monitoring -possible transfer to floor tomorrow -case d/w 38 minutes spent in critical care time
--- NOTE | 2016-09-27 12:33 | PN ---
Teaching Attending Note Name of Resident: Michelle Mishra ATTENDING PHYSICIAN STATEMENT I saw and evaluated the patient. I reviewed the resident's note and discussed the case with the resident. I agree with the resident's findings and plan as documented. SUBJECTIVE: Pt seen and examined in the ICU. Blood pressure improving with IVF resuscitation. Fever curve trending down, started on antibiotics. Poorly responsive. OBJECTIVE: Last Vital Signs Temp Pulse Resp BP Pulse Ox 99.6 F 80 18 108/40 96 09/27/16 10:00 09/27/16 10:00 09/27/16 10:00 09/27/16 10:00 09/27/16 09:00 Intake & Output 09/24/16 09/25/16 09/26/16 09/27/16 23:59 23:59 23:59 23:59 Intake Total 258 185 2716 Output Total 750 700 700 500 Balance -530 -700 200 500 Weight 117 lb 8.102 oz Gen: lethargic Heart: RRR Lung: decreased breath sounds at the bases Abd: soft, nontender Ext: no edema CBC, BMP 09/27/16 05:10 09/27/16 05:10 Active Medications Acetaminophen (Ofirmev Injection -) 1,000 mg IVPB Q6H PRN PRN Reason: FEVER OR PAIN Stop: 09/27/16 14:18 Last Admin: 09/26/16 21:15 Dose: 1,000 mg Carbidopa/Levodopa (Sinemet 25/100 -) 1 each PO QID [facility] Last Admin: 09/27/16 09:52 Dose: 1 each Dutasteride (Avodart -) 0.5 mg PO DAILY [facility] Last Admin: 09/26/16 09:32 Dose: Not Given Heparin Sodium (Porcine) (Heparin -) 5,000 unit SQ BID SHADI Meropenem 500 mg/ Dextrose 100 mls @ 100 mls/hr IVPB Q8H-IV [facility] Last Admin: 09/27/16 09:52 Dose: 100 mls/hr Dextrose/Sodium Chloride (D5-Ns -) 1,000 mls @ 75 mls/hr IV ASDIR [facility] Last Admin: 09/26/16 21:15 Dose: 75 mls/hr ASSESSMENT AND PLAN: r/o UTI Septic Shock improving BPH Parkinson's Disease Dementia Altered Mental Status - continue antibiotics - f/u cultures - monitor fever curve, WBC trend - IVF - monitor urine output, creatinine - aspiration precautions - continue discussions regarding goals of care and advanced directives - DVT prophylaxis - can monitor on floor as BP stabilizing with IVF critical care time spent in reviewing chart, evaluating patient and formulating plan 35 min
[2016-09-27] MEDS: DUTASTERIDE 0.5 MG CAP (FP) PO SCH (13:27)
[2016-09-27] MEDS: DEXTROSE 5%-NORMAL SALINE 1,000 ML IV SCH ×2 (13:28→16:50)
--- NOTE | 2016-09-27 13:45 | PN ---
Physical Exam: SUBJECTIVE: Patient seen and examined in ICU. He is very lethargic. OBJECTIVE: Vital Signs Period Temp Pulse Resp BP Sys/Walker Pulse Ox Last 24 Hr 99.4 F-101.3 F 65-88 14-22 96-127/40-80 94-100 GENERAL: The patient is awake, lethargic, in no acute distress, cachectic. HEAD: Normal with no signs of trauma. EYES: extraocular movements intact, sclera anicteric, conjunctiva clear. ENT: oropharynx clear without exudates, moist mucous membranes. NECK: Trachea midline, full range of motion, supple. LUNGS: Breath sounds equal, diminished breath sounds bilaterally, no wheezes, no crackles, no accessory muscle use. HEART: Regular rate and rhythm, S1, S2 without murmur, rub or gallop. ABDOMEN: Soft, nontender, nondistended, normoactive bowel sounds, no guarding, no rebound, no hepatosplenomegaly, no masses. EXTREMITIES: 2+ pulses, warm, well-perfused, no edema, upper and lower extremities flexed, not able to examine ROM. NEUROLOGICAL:No facial asymmetry, normal speech, gait not observed. PSYCH: Somnolent. SKIN: Warm, dry, normal turgor, no rashes. Laboratory Results - last 24 hr 09/26/16 09/27/16 09/27/16 15:30 05:10 05:10 WBC 13.8 H RBC 3.54 L Hgb 10.6 L D Hct 32.2 L MCV 91.0 MCHC 32.8 RDW 15.3 Plt Count 351 MPV 8.9 Neutrophils % 80.4 Lymphocytes % 8.7 Monocytes % 7.6 Eosinophils % 2.7 Basophils % 0.6 Sodium 148 H Potassium 4.2 Chloride 105 Carbon Dioxide 26 Anion Gap 17 H BUN 20 H Creatinine 0.6 L D Random Glucose 103 Lactic Acid 0.977 Calcium 7.9 L Phosphorus 2.8 D Magnesium 2.1 Active Medications Generic Name Dose Route Start Last Admin Trade Name Freq PRN Reason Stop Dose Admin Acetaminophen 1,000 mg 09/26/16 20:17 09/26/16 21:15 Ofirmev Injection - IVPB 09/27/16 14:18 1,000 mg Q6H PRN Administration FEVER OR PAIN Carbidopa/Levodopa 1 each 09/22/16 22:00 09/27/16 13:27 Sinemet 25/100 - PO 1 each QID SHADI Administration Dutasteride 0.5 mg 09/22/16 21:30 09/27/16 13:27 Avodart - PO 0.5 mg DAILY SHADI Administration Heparin Sodium (Porcine) 5,000 unit 09/27/16 22:00 Heparin - SQ BID SHADI Meropenem 500 mg/ Dextrose 100 mls @ 100 mls/hr 09/26/16 18:00 09/27/16 09:52 IVPB 100 mls/hr Q8H-IV SHADI Administration Dextrose/Sodium Chloride 1,000 mls @ 75 mls/hr 09/26/16 20:30 09/27/16 13:28 D5-Ns - IV 75 mls/hr ASDIR SHADI Administration Microbiology 09/22/16 19:12 Blood - Peripheral Venous Blood Culture - Preliminary NO GROWTH OBTAINED AFTER 72 HOURS, INCUBATION TO CONTINUE FOR 2 DAYS. 09/22/16 19:12 Blood - Peripheral Venous Blood Culture - Preliminary NO GROWTH OBTAINED AFTER 72 HOURS, INCUBATION TO CONTINUE FOR 2 DAYS. 09/22/16 16:54 Urine - Urine Ochoa Urine Culture - Final Alpha Hemolytic Streptococcus CT abdomen/pelvis: no acute pathology CXR: The region of the right cardiophrenic angle obscured by the cardiac silhouette. No pneumothorax, or large pleural effusion seen. ASSESSMENT/PLAN: 81 y/o M w/PMH of BPH and parkinsons presents to ER w/ c/o progressively worsening weakness and mental status over last 1 month since being discharged from rehab s/p L femur fracture according to family. He is admitted to ICU for confusion, low BP and UTI. Septic shock due to UTI -alpha hemolytic strep, ID consulted -rocephin changed to Vancomycin and Meropenem -urine culture pending, repeated blood culture pending -repeated LA normalized -f/u WBC, today 13.4 -will monitor vital signs -abdomen/pelvis CT w/o contrast WNL -history of ESBL in may 2016 Urinary retention and hematuria -f/u urology recommendation -continue tamsulosin and avodart -ochoa placed -hematuria resolved Acute metabolic encephalopathy -stated patient has become more confused since last admission -some confusion secondary to infection, but suspect underlying Parkinsons dementia as well rectal bleeding: -positive for FOBT Parkinson disease -neurology f/u -continue sinemet H/O of femur fracture F/E/N; Dextrose 75 ml/hr E; no electrolytes changes N: NPO DVT PPX: Heparin 5000 SQ Dispo: We will continue to follow the patient in ICU. Thank you for this consultative opportunity. Status: Full Code. Problem List - Problems (1) Altered mental status Code(s): R41.82 - ALTERED MENTAL STATUS, UNSPECIFIED Qualifiers: Altered mental status type: unspecified Qualified Code(s): R41.82 - Altered mental status, unspecified (2) Parkinson disease Code(s): G20 - PARKINSON'S DISEASE (3) Septic shock Code(s): A41.9 - SEPSIS, UNSPECIFIED ORGANISM R65.21 - SEVERE SEPSIS WITH SEPTIC SHOCK (4) UTI (urinary tract infection) Code(s): N39.0 - URINARY TRACT INFECTION, SITE NOT SPECIFIED Qualifiers: Urinary tract infection type: acute cystitis Hematuria presence: with hematuria Qualified Code(s): N30.01 - Acute cystitis with hematuria (5) Urinary retention Code(s): R33.9 - RETENTION OF URINE, UNSPECIFIED (6) Acute metabolic encephalopathy Code(s): G93.41 - METABOLIC ENCEPHALOPATHY (7) Fracture of trochanter of left femur Code(s): S72.102A - UNSP TROCHANTERIC FRACTURE OF LEFT FEMUR, INIT FOR CLOS FX Qualifiers: Encounter type: initial encounter Fracture type: closed Qualified Code(s): S72.102A - Unspecified trochanteric fracture of left femur, initial encounter for closed fracture (8) Hematuria Code(s): R31.9 - HEMATURIA, UNSPECIFIED Visit type - Emergency Visit Emergency Visit: Yes ED Registration Date: 09/22/16 Care time: The patient presented to the Emergency Department on the above date and was hospitalized for further evaluation of their emergent condition. - New Patient This patient is new to me today: No - Critical Care Critical Care patient: Yes Total Critical Care Time (in minutes): 40 Critical Care Statement: The care of this patient involved high complexity decision making to prevent further life threatening deterioration of the patient 's condition and/or to evalute & treat vital organ system(s) failure or risk of failure.
[2016-09-27 13:55] LABS: ALBUMIN 2.1 g/dl (3.4-5.0); BILIRUBIN,DIRECT 0.1 mg/dL (0.0-0.2); BILIRUBIN,TOTAL 0.4 mg/dL (0.2-1.0); TOT PROT 5.7 g/dl (6.4-8.2)
[2016-09-27] MEDS ORDERED: ACETAMINOPHEN 1000 MG/100 ML VIAL (NON FORMULARY) IVPB ONE (21:15)
[2016-09-27] MEDS: HEPARIN NA (PORCINE) 5,000 UNITS/ML 1ML VIAL SQ SCH (22:57)
[2016-09-28] MEDS ORDERED: PT OWN MED DRAWER 7, Y5N ONE ×8 (01:31→21:39)
[2016-09-28] MEDS: MEROPENEM 500 MG in DEXTROSE 5%-WATER - 100 ML IVPB SCH ×3 (01:39→19:00)
[2016-09-28 06:53] LABS: BASOPHIL 0.6 % (0-2.0); EOSINOPHIL 2.5 % (0-4.5); MCH 30.1 pg (25.7-33.7); MCHC 32.8 g/dl (32.0-35.9); MEAN CELL VOLUME 91.8 fl (80-96); MEAN PLT VOLUME 9.2 fl (7.5-11.1); NEUTROPHILS 82.3 % (42.8-82.8); PLATELET COUNT 378 K/MM3 (134-434); RDW 15.3 % (11.9-15.9); WHITE BLOOD COUNT 12.7 K/mm3 (4.0-10.0)
[2016-09-28 07:02] LABS: CALCIUM 8.3 mg/dL (8.5-10.1); CREATININE 0.6 mg/dL (0.7-1.3); MAGNESIUM 2.1 mg/dL (1.8-2.4)
--- NOTE | 2016-09-28 10:53 | PN ---
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, NET WE[employer] DEVELOPER - Note 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: Pt has been NPO. Transferred from ICU. More alert than when pt was in ICU. Quite confused, rambling with limited orientation/insight. Nursing contacted surgeon. New order of NPO after mednight tonight. Swallowing reassessed. Occasional throat clearing with puree, seems to be related to high distractibility with delayed swallow onset. The swallow reflex is quite brisk, once triggered. Swallow is triggered more quickly with single sips of water. REC: seat pt fully upright and stimulate pt to improve attention before feeding him Dysphagia puree, single sips of thin liquid, Supplements b/n meals. Remind pt to concentrate and swallow. Monitor tolerance. MBS if cough, throat clearing, congestion,cough.
[2016-09-28] MEDS: CARBIDOPA/LEVODOPA 25/100 TABLET (FP) PO SCH ×4 (11:30→22:00)
[2016-09-28] MEDS: HEPARIN NA (PORCINE) 5,000 UNITS/ML 1ML VIAL SQ SCH ×2 (11:30→22:00)
[2016-09-28] MEDS: DUTASTERIDE 0.5 MG CAP (FP) PO SCH (12:09)
--- NOTE | 2016-09-28 12:51 | PN ---
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, Physician Chief Complaint: Unable to obtain but eyes open and mumbling today. - Current Medication List Current Medications: Active Medications Carbidopa/Levodopa (Sinemet 25/100 -) 1 each PO QID [facility] Last Admin: 09/28/16 11:30 Dose: Not Given Dutasteride (Avodart -) 0.5 mg PO DAILY [facility] Last Admin: 09/28/16 12:09 Dose: Not Given Heparin Sodium (Porcine) (Heparin -) 5,000 unit SQ BID [facility] Last Admin: 09/28/16 11:30 Dose: 5,000 unit Dextrose/Sodium Chloride (D5-Ns -) 1,000 mls @ 75 mls/hr IV ASDIR [facility] Last Admin: 09/27/16 16:50 Dose: 75 mls/hr Meropenem 500 mg/ Dextrose 100 mls @ 100 mls/hr IVPB Q8H-IV [facility] Last Admin: 09/28/16 12:14 Dose: 100 mls/hr - Objective Vital Signs: Vital Signs Temperature 97.1 F L 09/28/16 06:25 Pulse Rate 82 09/28/16 06:25 Respiratory Rate 16 09/28/16 06:25 Blood Pressure 121/71 09/28/16 06:25 O2 Sat by Pulse Oximetry (%) 95 09/27/16 21:43 Constitutional: Yes: No Distress, Calm, Thin Cardiovascular: Yes: Regular Rate and Rhythm. No: Gallop, Murmur, Rub Respiratory: Yes: Regular, CTA Bilaterally. No: Rales, Rhonchi, Wheezes Gastrointestinal: Yes: Normal Bowel Sounds, Soft. No: Distention, Tenderness Extremities: Yes: WNL Edema: No Labs: CBC, BMP 09/28/16 05:35 09/28/16 05:35 Problem List - Problems (1) Septic shock Code(s): A41.9 - SEPSIS, UNSPECIFIED ORGANISM R65.21 - SEVERE SEPSIS WITH SEPTIC SHOCK (2) UTI (urinary tract infection) Code(s): N39.0 - URINARY TRACT INFECTION, SITE NOT SPECIFIED Qualifiers: Urinary tract infection type: acute cystitis Hematuria presence: with hematuria Qualified Code(s): N30.01 - Acute cystitis with hematuria (3) Acute metabolic encephalopathy Code(s): G93.41 - METABOLIC ENCEPHALOPATHY (4) Urinary retention Code(s): R33.9 - RETENTION OF URINE, UNSPECIFIED (5) Hematuria Code(s): R31.9 - HEMATURIA, UNSPECIFIED (6) Parkinson disease Code(s): G20 - PARKINSON'S DISEASE Assessment/Plan (1) Septic shock -resolved and leukocytosis improving -continue antibiotics (2) UTI (urinary tract infection) Assessment/Plan: -appreciate ID assistance -continue meropenem Code(s): N39.0 - URINARY TRACT INFECTION, SITE NOT SPECIFIED Qualifiers: Urinary tract infection type: acute cystitis Hematuria presence: with hematuria Qualified Code(s): N30.01 - Acute cystitis with hematuria (3) Acute metabolic encephalopathy Assessment/Plan: -more awake today -suspect resolved Code(s): G93.41 - METABOLIC ENCEPHALOPATHY (4) Urinary retention Assessment/Plan: -appreciate urology assistance -continue avodart -ochoa placed -when stable, will d/w urology about timing of procedure Code(s): R33.9 - RETENTION OF URINE, UNSPECIFIED (5) Hematuria Assessment/Plan: -resolved -urology following Code(s): R31.9 - HEMATURIA, UNSPECIFIED (6) Parkinson disease Assessment/Plan: -appreciate neurology assistance -continue sinemet Code(s): G20 - PARKINSON'S DISEASE
--- NOTE | 2016-09-28 13:55 | PN ---
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 (short form) - Note 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: PULMONARY/CCM Pt nonverbal. Fever curve trending down and BP improving. Last Vital Signs Temp Pulse Resp BP Pulse Ox 97.7 F 92 H 18 146/70 96 09/28/16 10:00 09/28/16 10:00 09/28/16 10:00 09/28/16 10:00 09/28/16 10:00 Gen: nonverbal, breathing nonlabored Heart: RRR Lung: decreased breath sounds at the bases Abd: soft, nontender Ext: no edema, contracted CBC, BMP 09/28/16 05:35 09/28/16 05:35 Active Medications Carbidopa/Levodopa (Sinemet 25/100 -) 1 each PO QID [facility] Last Admin: 09/28/16 11:30 Dose: Not Given Dutasteride (Avodart -) 0.5 mg PO DAILY [facility] Last Admin: 09/28/16 12:09 Dose: Not Given Heparin Sodium (Porcine) (Heparin -) 5,000 unit SQ BID [facility] Last Admin: 09/28/16 11:30 Dose: 5,000 unit Dextrose/Sodium Chloride (D5-Ns -) 1,000 mls @ 75 mls/hr IV ASDIR [facility] Last Admin: 09/27/16 16:50 Dose: 75 mls/hr Meropenem 500 mg/ Dextrose 100 mls @ 100 mls/hr IVPB Q8H-IV [facility] Last Admin: 09/28/16 12:14 Dose: 100 mls/hr A/P UTI Septic Shock improving BPH Parkinson's Disease Dementia Altered Mental Status - continue antibiotics - f/u cultures - monitor fever curve, WBC trend - IVF - monitor urine output, creatinine - aspiration precautions - DVT prophylaxis
[2016-09-28] MEDS: DEXTROSE 5%-NORMAL SALINE 1,000 ML IV SCH (16:10)
--- NOTE | 2016-09-28 22:07 | PN ---
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 (short form) - Note 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: 81M w severe prostatism and recurrent protatism. Trial at voiding failed. pt develops recurrent UTI's due to residual urine. Will take pt to OR in AM for TURVP. Spoke to who agrees w plan. Keep pt NPO, will obtain consent for procedure urology update note: -procedure canceled yesterday due to possible sepsis which is r/o. pt transferred back to floor. pt is afebrile, BP is WNL, still ochoa dependent. Family want procedure as soon as possible so pt can be discharged and undergo physical rehabilitation. will perform cysto w possible vaporization tomorrow afternoon is medically pt. will keep pt NPO,keep ochoa in place, obtain medical clearance and hopefully perform procedure in afternoon. Problem List - Problems (1) Altered mental status Code(s): R41.82 - ALTERED MENTAL STATUS, UNSPECIFIED Qualifiers: Altered mental status type: unspecified Qualified Code(s): R41.82 - Altered mental status, unspecified (2) Multiple drug resistant organism (MDRO) culture positive Code(s): Z16.24 - RESISTANCE TO MULTIPLE ANTIBIOTICS (3) Parkinson disease Code(s): G20 - PARKINSON'S DISEASE (4) Septic shock Code(s): A41.9 - SEPSIS, UNSPECIFIED ORGANISM R65.21 - SEVERE SEPSIS WITH SEPTIC SHOCK (5) UTI (urinary tract infection) Code(s): N39.0 - URINARY TRACT INFECTION, SITE NOT SPECIFIED Qualifiers: Urinary tract infection type: acute cystitis Hematuria presence: with hematuria Qualified Code(s): N30.01 - Acute cystitis with hematuria (6) Urinary retention Code(s): R33.9 - RETENTION OF URINE, UNSPECIFIED (7) Acute metabolic encephalopathy Code(s): G93.41 - METABOLIC ENCEPHALOPATHY (8) Fracture of trochanter of left femur Code(s): S72.102A - UNSP TROCHANTERIC FRACTURE OF LEFT FEMUR, INIT FOR CLOS FX Qualifiers: Encounter type: initial encounter Fracture type: closed Qualified Code(s): S72.102A - Unspecified trochanteric fracture of left femur, initial encounter for closed fracture (9) Hematuria Code(s): R31.9 - HEMATURIA, UNSPECIFIED (10) Maxillary sinusitis, acute Code(s): J01.00 - ACUTE MAXILLARY SINUSITIS, UNSPECIFIED (11) Pleural effusion Code(s): J90 - PLEURAL EFFUSION, NOT ELSEWHERE CLASSIFIED (12) Ribs, multiple fractures Code(s): S22.49XA - MULTIPLE FRACTURES OF RIBS, UNSP SIDE, INIT FOR CLOS FX Qualifiers: Encounter type: initial encounter Fracture type: closed Laterality : left Qualified Code(s): S22.42XA - Multiple fractures of ribs, left side, initial encounter for closed fracture (13) Upper respiratory infection Code(s): J06.9 - ACUTE UPPER RESPIRATORY INFECTION, UNSPECIFIED Qualifiers: URI type: unspecified viral URI Qualified Code(s): J06.9 - Acute upper respiratory infection, unspecified; B97.89 - Other viral agents as the cause of diseases classified elsewhere Labs Lab Results: CBC, BMP 09/28/16 05:35 09/28/16 05:35 Xital Signs Vital Signs: Vital Signs - 24 hr 09/28/16 09/28/16 09/28/16 06:25 10:00 14:00 Temperature 97.1 F L 97.7 F 97.8 F Pulse Rate 82 92 H 77 Respiratory 16 18 17 Rate Blood Pressure 121/71 146/70 120/78 O2 Sat by Pulse 96 Oximetry (%) 09/28/16 18:04 Temperature Pulse Rate 84 Respiratory 18 Rate Blood Pressure 105/60 O2 Sat by Pulse Oximetry (%)
[2016-09-29] MEDS: MEROPENEM 500 MG in DEXTROSE 5%-WATER - 100 ML IVPB SCH ×3 (01:29→18:09)
[2016-09-29 07:16] LABS: EOSINOPHIL 1.3 % (0-4.5); MCH 30.2 pg (25.7-33.7); MCHC 33.2 g/dl (32.0-35.9); MEAN CELL VOLUME 90.9 fl (80-96); MEAN PLT VOLUME 8.4 fl (7.5-11.1); NEUTROPHILS 80.9 % (42.8-82.8); PLATELET COUNT 384 K/MM3 (134-434); WHITE BLOOD COUNT 12.3 K/mm3 (4.0-10.0)
[2016-09-29 07:41] LABS: CALCIUM 8.2 mg/dL (8.5-10.1)
[2016-09-29 07:42] LABS: COCKROFT - GAULT 89.07; CREATININE 0.5 mg/dL (0.7-1.3); PHOSPHOROUS 2.3 mg/dL (2.5-4.9)
[2016-09-29] MEDS ORDERED: PT OWN MED DRAWER 7, Y5N ONE ×2 (09:31→18:01)
[2016-09-29] MEDS: DUTASTERIDE 0.5 MG CAP (FP) PO SCH ×2 (09:36→11:04)
[2016-09-29] MEDS: CARBIDOPA/LEVODOPA 25/100 TABLET (FP) PO SCH ×5 (09:37→21:33)
--- NOTE | 2016-09-29 10:24 | PN ---
TAWANNA Cordero Note Chief Complaint: pt recently transfeered from icu with septic shock afebrile. pt for or today. but needs med clearance. spoke to nurse - Objective Vital Signs: Vital Signs Temperature 99.5 F 09/29/16 09:38 Pulse Rate 81 09/29/16 09:38 Respiratory Rate 18 09/29/16 09:38 Blood Pressure 107/65 09/29/16 09:38 O2 Sat by Pulse Oximetry (%) 96 09/28/16 21:00 Labs/Additional Data: CBC, BMP 09/29/16 06:00 09/29/16 06:00 Problem List - Problems (1) Altered mental status Code(s): R41.82 - ALTERED MENTAL STATUS, UNSPECIFIED Qualifiers: Altered mental status type: unspecified Qualified Code(s): R41.82 - Altered mental status, unspecified (2) Multiple drug resistant organism (MDRO) culture positive Code(s): Z16.24 - RESISTANCE TO MULTIPLE ANTIBIOTICS (3) Parkinson disease Code(s): G20 - PARKINSON'S DISEASE (4) Septic shock Code(s): A41.9 - SEPSIS, UNSPECIFIED ORGANISM R65.21 - SEVERE SEPSIS WITH SEPTIC SHOCK (5) UTI (urinary tract infection) Code(s): N39.0 - URINARY TRACT INFECTION, SITE NOT SPECIFIED Qualifiers: Urinary tract infection type: acute cystitis Hematuria presence: with hematuria Qualified Code(s): N30.01 - Acute cystitis with hematuria (6) Urinary retention Code(s): R33.9 - RETENTION OF URINE, UNSPECIFIED (7) Acute metabolic encephalopathy Code(s): G93.41 - METABOLIC ENCEPHALOPATHY (8) Fracture of trochanter of left femur Code(s): S72.102A - UNSP TROCHANTERIC FRACTURE OF LEFT FEMUR, INIT FOR CLOS FX Qualifiers: Encounter type: initial encounter Fracture type: closed Qualified Code(s): S72.102A - Unspecified trochanteric fracture of left femur, initial encounter for closed fracture (9) Hematuria Code(s): R31.9 - HEMATURIA, UNSPECIFIED (10) Maxillary sinusitis, acute Code(s): J01.00 - ACUTE MAXILLARY SINUSITIS, UNSPECIFIED (11) Pleural effusion Code(s): J90 - PLEURAL EFFUSION, NOT ELSEWHERE CLASSIFIED (12) Ribs, multiple fractures Code(s): S22.49XA - MULTIPLE FRACTURES OF RIBS, UNSP SIDE, INIT FOR CLOS FX Qualifiers: Encounter type: initial encounter Fracture type: closed Laterality : left Qualified Code(s): S22.42XA - Multiple fractures of ribs, left side, initial encounter for closed fracture (13) Upper respiratory infection Code(s): J06.9 - ACUTE UPPER RESPIRATORY INFECTION, UNSPECIFIED Qualifiers: URI type: unspecified viral URI Qualified Code(s): J06.9 - Acute upper respiratory infection, unspecified; B97.89 - Other viral agents as the cause of diseases classified elsewhere
[2016-09-29] MEDS: HEPARIN NA (PORCINE) 5,000 UNITS/ML 1ML VIAL SQ SCH ×2 (11:03→21:33)
[2016-09-29] MEDS: DEXTROSE 5%-NORMAL SALINE 1,000 ML IV SCH ×2 (11:04→18:09)
--- NOTE | 2016-09-29 12:05 | PN ---
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, Physician Chief Complaint: Mr Cullen says hello but unable to obtain further subjective - Current Medication List Current Medications: Active Medications Acetaminophen (Tylenol -) 650 mg PO Q8H PRN PRN Reason: FEVER OR PAIN Carbidopa/Levodopa (Sinemet 25/100 -) 1 each PO QID [facility] Last Admin: 09/29/16 11:03 Dose: 1 each Dutasteride (Avodart -) 0.5 mg PO DAILY [facility] Last Admin: 09/29/16 11:04 Dose: 0.5 mg Heparin Sodium (Porcine) (Heparin -) 5,000 unit SQ BID [facility] Last Admin: 09/29/16 11:03 Dose: 5,000 unit Dextrose/Sodium Chloride (D5-Ns -) 1,000 mls @ 75 mls/hr IV ASDIR [facility] Last Admin: 09/29/16 11:04 Dose: 75 mls/hr Meropenem 500 mg/ Dextrose 100 mls @ 100 mls/hr IVPB Q8H-IV [facility] Last Admin: 09/29/16 09:37 Dose: 100 mls/hr - Objective Vital Signs: Vital Signs Temperature 99.5 F 09/29/16 09:38 Pulse Rate 81 09/29/16 09:38 Respiratory Rate 18 09/29/16 09:38 Blood Pressure 107/65 09/29/16 09:38 O2 Sat by Pulse Oximetry (%) 96 09/28/16 21:00 Constitutional: Yes: No Distress, Calm, Thin Cardiovascular: Yes: Regular Rate and Rhythm. No: Gallop, Murmur, Rub Respiratory: Yes: Regular, CTA Bilaterally. No: Rales, Rhonchi, Wheezes Gastrointestinal: Yes: Normal Bowel Sounds, Soft. No: Distention, Tenderness Extremities: Yes: WNL Edema: No Labs: CBC, BMP 09/29/16 06:00 09/29/16 06:00 Problem List - Problems (1) Septic shock Code(s): A41.9 - SEPSIS, UNSPECIFIED ORGANISM R65.21 - SEVERE SEPSIS WITH SEPTIC SHOCK (2) UTI (urinary tract infection) Code(s): N39.0 - URINARY TRACT INFECTION, SITE NOT SPECIFIED Qualifiers: Urinary tract infection type: acute cystitis Hematuria presence: with hematuria Qualified Code(s): N30.01 - Acute cystitis with hematuria (3) Acute metabolic encephalopathy Code(s): G93.41 - METABOLIC ENCEPHALOPATHY (4) Urinary retention Code(s): R33.9 - RETENTION OF URINE, UNSPECIFIED (5) Hematuria Code(s): R31.9 - HEMATURIA, UNSPECIFIED (6) Parkinson disease Code(s): G20 - PARKINSON'S DISEASE Assessment/Plan (1) Septic shock -resolved and leukocytosis improving -continue antibiotics (2) UTI (urinary tract infection) Assessment/Plan: -appreciate ID assistance -continue meropenem Code(s): N39.0 - URINARY TRACT INFECTION, SITE NOT SPECIFIED Qualifiers: Urinary tract infection type: acute cystitis Hematuria presence: with hematuria Qualified Code(s): N30.01 - Acute cystitis with hematuria (3) Acute metabolic encephalopathy Assessment/Plan: -more awake today -suspect resolved Code(s): G93.41 - METABOLIC ENCEPHALOPATHY (4) Urinary retention Assessment/Plan: -appreciate urology assistance -continue avodart -ochoa placed -recommend holding off on procedure until Sunday Code(s): R33.9 - RETENTION OF URINE, UNSPECIFIED (5) Hematuria Assessment/Plan: -resolved -urology following Code(s): R31.9 - HEMATURIA, UNSPECIFIED (6) Parkinson disease Assessment/Plan: -appreciate neurology assistance -continue sinemet Code(s): G20 - PARKINSON'S DISEASE
[2016-09-29 13:38] LABS: PH,URINE 5.5 (4.5-8); URINE APPEARANCE Clear; URINE BILIRUBIN Negative (NEGATIVE); URINE GLUCOSE (UA) Negative (NEGATIVE); URINE KETONE Negative (NEGATIVE); URINE LEUK ESTERASE Negative (NEGATIVE); URINE NITRITE Negative (NEGATIVE); URINE UROBILINOGEN 0.2 E.U/dl (0.2-1.0)
[2016-09-29 13:40] LABS: URINE BACTERIA RARE /hpf (NEGATIVE); URINE BLOOD 3+ (NEGATIVE); URINE COLOR YELLOW; URINE PROTEIN 2+ (NEGATIVE); URINE RBC 15-20 /hpf (0-3); URINE WBC NONE SEEN (3-5)
--- NOTE | 2016-09-29 16:12 | PN ---
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 (short form) - Note 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: stable overnight low grade temps much more alert and awake today Vital Signs Period Temp Pulse Resp BP Sys/Walker Pulse Ox Last 24 Hr 99.5 F-100.4 F 77-84 18-18 103-127/49-65 95-96 cor-rrr lungs decreased bs at bases abd soft,nt ext no edema ochoa CBC, BMP 09/29/16 06:00 09/29/16 06:00 ct scan- no gross abscess, markedly limited study Microbiology 09/26/16 13:25 Blood Culture - Preliminary Blood - Peripheral Venous NO GROWTH OBTAINED AFTER 72 HOURS, INCUBATION TO CONTINUE FOR 2 DAYS. 09/26/16 13:20 Blood Culture - Preliminary Blood - Peripheral Venous NO GROWTH OBTAINED AFTER 72 HOURS, INCUBATION TO CONTINUE FOR 2 DAYS. cxray rotated a/p sepsis persistent leukocytosis history of esbl ecoli in May f/u ct scan unremarkable urine culture never sent- re-ordered for OR on Sunday continue meropenem parkinsons disease s/p femur fracture
[2016-09-30] MEDS ORDERED: PT OWN MED DRAWER 7, Y5N ONE ×5 (01:21→17:37)
[2016-09-30] MEDS: MEROPENEM 500 MG in DEXTROSE 5%-WATER - 100 ML IVPB SCH ×3 (01:23→17:29)
[2016-09-30 07:09] LABS: BASOPHIL 0.4 % (0-2.0); EOSINOPHIL 2.1 % (0-4.5); MCH 30.5 pg (25.7-33.7); MCHC 33.6 g/dl (32.0-35.9); MEAN CELL VOLUME 90.9 fl (80-96); MEAN PLT VOLUME 8.2 fl (7.5-11.1); NEUTROPHILS 75.4 % (42.8-82.8); PLATELET COUNT 365 K/MM3 (134-434); RDW 15.1 % (11.9-15.9); WHITE BLOOD COUNT 9.2 K/mm3 (4.0-10.0)
[2016-09-30 07:21] LABS: INR 1.36 (0.82-1.09); PROTHROMBIN TIME (PATIENT) 15.1 SEC (9.98-11.88)
--- NOTE | 2016-09-30 07:27 | PN ---
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 (short form) - Note 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: PATIENT AWAKE BUT CONFUSED . COMBATIVE WHILE ATTEMPTING TO EXAMINE. NO ACUTE RESPIRATORY / CARDIAC DISTRESS. PATIENT WITH BPH / JONES IN PLACE / URINE CLEAR. Laboratory Tests 09/29/16 09/29/16 06:00 06:00 WBC 12.3 H RBC 3.62 L Hgb 10.9 L Hct 32.9 L Plt Count 384 Sodium 142 Potassium 4.2 Chloride 104 Carbon Dioxide 28 Anion Gap 10 BUN 16 Creatinine 0.5 L Calcium 8.2 L Phosphorus 2.3 L D Magnesium 2.0 P/E BP 108 / 50 TEMP 99.1 RR 16 HEENT <> MASKED FACIES OF PARKINSON'S COR <> S 1 S 2 HS DISTANCE CHEST <> DECREASED BS AT BASES ABD <> NONTENDER / NO REBOUND EXT <> CONTRACTED LE IMP : UTI SEPSIS PARKINSONS. BPH WITH OUTLET OBSTRUCTION FEMUR FX DEMENTIA / METABOLIC ENCEPHALOPATHY. PLAN : AB PER ID FOLLOWUP. IV FLUIDS FOLLOW LABS
[2016-09-30 07:36] LABS: CALCIUM 8.2 mg/dL (8.5-10.1); COCKROFT - GAULT 74.23; CREATININE 0.6 mg/dL (0.7-1.3); MAGNESIUM 1.9 mg/dL (1.8-2.4); PHOSPHOROUS 2.5 mg/dL (2.5-4.9)
[2016-09-30] MEDS: DUTASTERIDE 0.5 MG CAP (FP) PO SCH (09:14)
[2016-09-30] MEDS: HEPARIN NA (PORCINE) 5,000 UNITS/ML 1ML VIAL SQ SCH ×2 (09:14→22:15)
[2016-09-30] MEDS: CARBIDOPA/LEVODOPA 25/100 TABLET (FP) PO SCH ×4 (09:14→22:15)
--- NOTE | 2016-09-30 10:29 | PN ---
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, Physician History of Present Illness: Awake, responsive No complaints offered Low grade temp WBC-WNL Blood, urine c/s (-) - Current Medication List Current Medications: Active Medications Acetaminophen (Tylenol -) 650 mg PO Q8H PRN PRN Reason: FEVER OR PAIN Carbidopa/Levodopa (Sinemet 25/100 -) 1 each PO QID [facility] Last Admin: 09/30/16 09:14 Dose: 1 each Dutasteride (Avodart -) 0.5 mg PO DAILY [facility] Last Admin: 09/30/16 09:14 Dose: 0.5 mg Heparin Sodium (Porcine) (Heparin -) 5,000 unit SQ BID [facility] Last Admin: 09/30/16 09:14 Dose: 5,000 unit Dextrose/Sodium Chloride (D5-Ns -) 1,000 mls @ 75 mls/hr IV ASDIR [facility] Last Admin: 09/29/16 18:09 Dose: Not Given Meropenem 500 mg/ Dextrose 100 mls @ 100 mls/hr IVPB Q8H-IV [facility] Last Admin: 09/30/16 10:02 Dose: 100 mls/hr - Objective Vital Signs: Vital Signs Temperature 99.1 F 09/30/16 06:00 Pulse Rate 71 09/30/16 06:00 Respiratory Rate 20 09/30/16 06:00 Blood Pressure 102/48 09/30/16 06:00 O2 Sat by Pulse Oximetry (%) 95 09/29/16 21:00 Constitutional: Yes: No Distress Eyes: Yes: Conjunctiva Clear Cardiovascular: Yes: Regular Rate and Rhythm, S1, S2 Respiratory: Yes: CTA Bilaterally Gastrointestinal: Yes: Normal Bowel Sounds, Soft. No: Tenderness Edema: No Labs: CBC, BMP 09/30/16 06:00 09/30/16 06:00 INR, PTT INR 1.36 (0.82-1.09) H 09/30/16 06:00 Assessment/Plan Sepsis, possible source Leukocytosis-resolved Femur fracture Parkinsonism Hx ESBL For surgery Continue meropenem
--- NOTE | 2016-09-30 13:00 | PN ---
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 (short form) - Note 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: 81M w severe prostatism and recurrent protatism. Trial at voiding failed. pt develops recurrent UTI's due to residual urine. Will take pt to OR in AM for TURVP. Spoke to who agrees w plan. Keep pt NPO, will obtain consent for procedure urology update note: -procedure canceled yesterday due to possible sepsis which is r/o. pt transferred back to floor. pt is afebrile, BP is WNL, still ochoa dependent. Family want procedure as soon as possible so pt can be discharged and undergo physical rehabilitation. will perform cysto w possible vaporization tomorrow afternoon is medically pt. will keep pt NPO,keep ochoa in place, obtain medical clearance and hopefully perform procedure in afternoon. urology update note 09/30 - presently pt is afebrile and more alert. ochoa is patent and urine is clear. Abd soft, NT,ND wbc back down to normal (9.2). plan: will schedule pt for cysto, possible vaporization on sunday if medically cleared Problem List - Problems (1) Altered mental status Code(s): R41.82 - ALTERED MENTAL STATUS, UNSPECIFIED Qualifiers: Altered mental status type: unspecified Qualified Code(s): R41.82 - Altered mental status, unspecified (2) Multiple drug resistant organism (MDRO) culture positive Code(s): Z16.24 - RESISTANCE TO MULTIPLE ANTIBIOTICS (3) Parkinson disease Code(s): G20 - PARKINSON'S DISEASE (4) Septic shock Code(s): A41.9 - SEPSIS, UNSPECIFIED ORGANISM R65.21 - SEVERE SEPSIS WITH SEPTIC SHOCK (5) UTI (urinary tract infection) Code(s): N39.0 - URINARY TRACT INFECTION, SITE NOT SPECIFIED Qualifiers: Urinary tract infection type: acute cystitis Hematuria presence: with hematuria Qualified Code(s): N30.01 - Acute cystitis with hematuria (6) Urinary retention Code(s): R33.9 - RETENTION OF URINE, UNSPECIFIED (7) Acute metabolic encephalopathy Code(s): G93.41 - METABOLIC ENCEPHALOPATHY (8) Fracture of trochanter of left femur Code(s): S72.102A - UNSP TROCHANTERIC FRACTURE OF LEFT FEMUR, INIT FOR CLOS FX Qualifiers: Encounter type: initial encounter Fracture type: closed Qualified Code(s): S72.102A - Unspecified trochanteric fracture of left femur, initial encounter for closed fracture (9) Hematuria Code(s): R31.9 - HEMATURIA, UNSPECIFIED (10) Maxillary sinusitis, acute Code(s): J01.00 - ACUTE MAXILLARY SINUSITIS, UNSPECIFIED (11) Pleural effusion Code(s): J90 - PLEURAL EFFUSION, NOT ELSEWHERE CLASSIFIED (12) Ribs, multiple fractures Code(s): S22.49XA - MULTIPLE FRACTURES OF RIBS, UNSP SIDE, INIT FOR CLOS FX Qualifiers: Encounter type: initial encounter Fracture type: closed Laterality : left Qualified Code(s): S22.42XA - Multiple fractures of ribs, left side, initial encounter for closed fracture (13) Upper respiratory infection Code(s): J06.9 - ACUTE UPPER RESPIRATORY INFECTION, UNSPECIFIED Qualifiers: URI type: unspecified viral URI Qualified Code(s): J06.9 - Acute upper respiratory infection, unspecified; B97.89 - Other viral agents as the cause of diseases classified elsewhere Labs Lab Results: CBC, BMP 09/30/16 06:00 09/30/16 06:00
[2016-09-30] MEDS: DEXTROSE 5%-NORMAL SALINE 1,000 ML IV SCH (19:05)
[2016-10-01] MEDS ORDERED: PT OWN MED DRAWER 7, Y5N ONE ×3 (02:10→16:27)
[2016-10-01] MEDS: MEROPENEM 500 MG in DEXTROSE 5%-WATER - 100 ML IVPB SCH ×3 (02:20→17:19)
--- NOTE | 2016-10-01 07:26 | PN ---
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 (short form) - Note 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: PATIENT MORE AWAKE / REMAINS CONFUSED . FOLLOWUP APPRECIATED Laboratory Tests Selected Entries 10/01/16 06:09 Temperature 97.7 F Pulse Rate 76 Respiratory 22 Rate Blood Pressure 119/64 Laboratory Tests 09/30/16 09/30/16 09/30/16 06:00 06:00 06:00 WBC 9.2 RBC 3.48 L Hgb 10.6 L Hct 31.6 L Plt Count 365 INR 1.36 H Sodium 142 Potassium 4.7 Chloride 104 Carbon Dioxide 27 Anion Gap 11 BUN 12 D Creatinine 0.6 L Random Glucose 93 Calcium 8.2 L Phosphorus 2.5 Magnesium 1.9 P/E UNCHANGED HEENT <> MASKED FACIES OF PARKINSON'S COR <> S 1 S 2 HS DISTANCE CHEST <> DECREASED BS AT BASES ABD <>SOFT / NONTENDER / NO REBOUND / NO GUARDING EXT <> CONTRACTED LE IMP : UTI SEPSIS PARKINSON'S. BPH WITH OUTLET OBSTRUCTION / PRIOR HY OF PROSTATE CA GLEASONS 6 . FEMUR FX DEMENTIA PLAN :CONTINUE ANTIBIOTICS ORDERED BY I.D. FOLLOWUP. ID FOLLOWUP MONITOR LABS
[2016-10-01] MEDS: HEPARIN NA (PORCINE) 5,000 UNITS/ML 1ML VIAL SQ SCH ×2 (11:49→21:57)
[2016-10-01] MEDS: CARBIDOPA/LEVODOPA 25/100 TABLET (FP) PO SCH ×4 (11:49→21:57)
[2016-10-01] MEDS: DUTASTERIDE 0.5 MG CAP (FP) PO SCH (11:49)
--- NOTE | 2016-10-01 12:47 | PN ---
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, Physician History of Present Illness: Awake Not verbally responsive Afebrile WBC WNL - Current Medication List Current Medications: Active Medications Acetaminophen (Tylenol -) 650 mg PO Q8H PRN PRN Reason: FEVER OR PAIN Carbidopa/Levodopa (Sinemet 25/100 -) 1 each PO QID [facility] Last Admin: 10/01/16 11:49 Dose: 1 each Dutasteride (Avodart -) 0.5 mg PO DAILY [facility] Last Admin: 10/01/16 11:49 Dose: 0.5 mg Heparin Sodium (Porcine) (Heparin -) 5,000 unit SQ BID [facility] Last Admin: 10/01/16 11:49 Dose: 5,000 unit Dextrose/Sodium Chloride (D5-Ns -) 1,000 mls @ 75 mls/hr IV ASDIR [facility] Last Admin: 09/30/16 19:05 Dose: 75 mls/hr Meropenem 500 mg/ Dextrose 100 mls @ 100 mls/hr IVPB Q8H-IV [facility] Last Admin: 10/01/16 11:48 Dose: 100 mls/hr - Objective Vital Signs: Vital Signs Temperature 97.7 F 10/01/16 06:09 Pulse Rate 76 10/01/16 06:09 Respiratory Rate 22 10/01/16 06:09 Blood Pressure 119/64 10/01/16 06:09 O2 Sat by Pulse Oximetry (%) 95 09/30/16 09:00 Constitutional: Yes: No Distress Eyes: Yes: Conjunctiva Clear Cardiovascular: Yes: Regular Rate and Rhythm, S1, S2 Respiratory: Yes: Diminished Gastrointestinal: Yes: Normal Bowel Sounds, Soft. No: Tenderness Labs: CBC, BMP 09/30/16 06:00 09/30/16 06:00 INR, PTT INR 1.36 (0.82-1.09) H 09/30/16 06:00 Assessment/Plan Sepsis, possible source Leukocytosis-resolved Femur fracture Parkinsonism Hx ESBL For TURVP am Continue meropenem perioperatively
[2016-10-01] MEDS: DEXTROSE 5%-NORMAL SALINE 1,000 ML IV SCH ×2 (17:19→23:26)
[2016-10-02] MEDS ORDERED: PT OWN MED DRAWER 7, Y5N ONE (01:13)
[2016-10-02] MEDS: MEROPENEM 500 MG in DEXTROSE 5%-WATER - 100 ML IVPB SCH (01:15)
--- NOTE | 2016-10-02 09:30 | PN ---
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 (short form) - Note 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: ID Meropenem Selected Entries 10/02/16 10/02/16 02:10 06:00 Temperature 98.4 F 99.1 F Pulse Rate 79 Respiratory 18 Rate Blood Pressure 93/42 Microbiology 09/22/16 16:54 Urine - Urine Elam Urine Culture - Final Alpha Hemolytic Streptococcus 06/03/16 09:30 Urine - Urine Clean Catch Urine Culture - Final Escherichia Coli Esbl [facility]n [facility] Tests 09/29/16 09/30/16 09:30 06:00 WBC 9.2 Hgb 10.6 L Hct 31.6 L Urine RBC 15-20 Urine WBC None seen Assesment On treatment UTI NO resistant organims Plan Cysto today Amoxcillin suspension 500mg tid Stop Meropenem Suman EKLLEY Problem List - Problems (1) UTI (urinary tract infection) Code(s): N39.0 - URINARY TRACT INFECTION, SITE NOT SPECIFIED Qualifiers: Urinary tract infection type: acute cystitis Hematuria presence: with hematuria Qualified Code(s): N30.01 - Acute cystitis with hematuria (2) Urinary retention Code(s): R33.9 - RETENTION OF URINE, UNSPECIFIED (3) Multiple drug resistant organism (MDRO) culture positive Code(s): Z16.24 - RESISTANCE TO MULTIPLE ANTIBIOTICS
--- NOTE | 2016-10-02 10:11 | PN ---
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 (short form) - Note 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: Patient nonverbal. No acute events overnight. Intake & Output 09/29/16 09/30/16 10/01/16 10/02/16 23:59 23:59 23:59 23:59 Intake Total 1285 1525 1225 900 Output Total 1100 1400 1500 300 Balance 185 125 -275 600 Weight 115 lb 14.4 oz 120 lb 8 oz 118 lb 4 oz 117 lb 8 oz Last Vital Signs Temp Pulse Resp BP Pulse Ox 99.1 F 79 18 93/42 94 L 10/02/16 06:00 10/02/16 06:00 10/02/16 06:00 10/02/16 06:00 10/01/16 21:00 Active Medications Acetaminophen (Tylenol -) 650 mg PO Q8H PRN PRN Reason: FEVER OR PAIN Amoxicillin (Amoxicillin Suspension -) 500 mg PO TID [facility] Carbidopa/Levodopa (Sinemet 25/100 -) 1 each PO QID [facility] Last Admin: 10/01/16 21:57 Dose: 1 each Dutasteride (Avodart -) 0.5 mg PO DAILY [facility] Last Admin: 10/01/16 11:49 Dose: 0.5 mg Heparin Sodium (Porcine) (Heparin -) 5,000 unit SQ BID [facility] Last Admin: 10/01/16 21:57 Dose: 5,000 unit Dextrose/Sodium Chloride (D5-Ns -) 1,000 mls @ 75 mls/hr IV ASDIR [facility] Last Admin: 10/01/16 23:26 Dose: 75 mls/hr Gen: nonverbal, breathing nonlabored Heart: RRR Lung: decreased breath sounds at the bases Abd: soft, nontender Ext: no edema, contracted Laboratory Results - last 24 hr 09/22/16 14:49 Stool Occult Blood Cancelled A/P UTI Resolved Septic Shock BPH Parkinson's Disease Dementia Altered Mental Status - ABX per ID - IVF - monitor urine output, creatinine - aspiration precautions - DVT prophylaxis - No Pulmonary contraindication for OR Dr Duncan
[2016-10-02] MEDS: HEPARIN NA (PORCINE) 5,000 UNITS/ML 1ML VIAL SQ SCH ×2 (10:29→22:14)
[2016-10-02] MEDS: AMOXICILLIN ORAL SUSPENSION - 250 MG/5 ML PO SCH ×3 (10:29→22:12)
[2016-10-02] MEDS: DUTASTERIDE 0.5 MG CAP (FP) PO SCH (10:29)
[2016-10-02] MEDS: CARBIDOPA/LEVODOPA 25/100 TABLET (FP) PO SCH ×4 (10:29→22:12)
--- NOTE | 2016-10-02 12:06 | OP ---
Operative Note - Note: Operative Date: 10/02/16 Pre-Operative Diagnosis: bph with chronic retention Operation: TUVP Findings: trilobar hypertrophy with trabeculated bladder Surgeon: Lee Perry Anesthesia: General Specimens Removed: prostate tissue Estimated Blood Loss (mls): 20 Drains, Volume Out (mls): 0 Blood Volume Replaced (mls): 0 Fluid Volume Replaced (mls): 0 Operative Report Dictated: Yes
[2016-10-02] MEDS ORDERED: PROPOFOL 20 ML ONE (12:17)
[2016-10-02] MEDS ORDERED: ceFAZolin SODIUM 1 GM VIAL IVPB ONE (12:20)
[2016-10-02] MEDS ORDERED: ROCURONIUM BROMIDE 50 MG/5 ML VIAL ONE (12:22)
--- NOTE | 2016-10-02 12:25 | PN ---
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, Physician Chief Complaint: Unable to obtain - Current Medication List Current Medications: Active Medications Acetaminophen (Tylenol -) 650 mg PO Q8H PRN PRN Reason: FEVER OR PAIN Amoxicillin (Amoxicillin Suspension -) 500 mg PO TID [facility] Last Admin: 10/02/16 10:29 Dose: Not Given Carbidopa/Levodopa (Sinemet 25/100 -) 1 each PO QID [facility] Last Admin: 10/02/16 10:29 Dose: Not Given Dutasteride (Avodart -) 0.5 mg PO DAILY [facility] Last Admin: 10/02/16 10:29 Dose: Not Given Heparin Sodium (Porcine) (Heparin -) 5,000 unit SQ BID [facility] Last Admin: 10/02/16 10:29 Dose: Not Given Dextrose/Sodium Chloride (D5-Ns -) 1,000 mls @ 75 mls/hr IV ASDIR [facility] Last Admin: 10/01/16 23:26 Dose: 75 mls/hr Solifenacin (Vesicare -) 10 mg PO DAILY [facility] - Objective Vital Signs: Vital Signs Temperature 100 F H 10/02/16 10:00 Pulse Rate 73 10/02/16 10:00 Respiratory Rate 18 10/02/16 10:00 Blood Pressure 90/58 10/02/16 10:00 O2 Sat by Pulse Oximetry (%) 94 L 10/02/16 09:00 Constitutional: Yes: No Distress, Calm, Thin Cardiovascular: Yes: Regular Rate and Rhythm. No: Gallop, Murmur, Rub Respiratory: Yes: Regular, CTA Bilaterally. No: Rales, Rhonchi, Wheezes Gastrointestinal: Yes: Normal Bowel Sounds, Soft. No: Distention, Tenderness Extremities: Yes: WNL Edema: No Labs: CBC, BMP 09/30/16 06:00 09/30/16 06:00 INR, PTT INR 1.36 (0.82-1.09) H 09/30/16 06:00 Problem List - Problems (1) Septic shock Code(s): A41.9 - SEPSIS, UNSPECIFIED ORGANISM R65.21 - SEVERE SEPSIS WITH SEPTIC SHOCK (2) UTI (urinary tract infection) Code(s): N39.0 - URINARY TRACT INFECTION, SITE NOT SPECIFIED Qualifiers: Urinary tract infection type: acute cystitis Hematuria presence: with hematuria Qualified Code(s): N30.01 - Acute cystitis with hematuria (3) Acute metabolic encephalopathy Code(s): G93.41 - METABOLIC ENCEPHALOPATHY (4) Urinary retention Code(s): R33.9 - RETENTION OF URINE, UNSPECIFIED (5) Hematuria Code(s): R31.9 - HEMATURIA, UNSPECIFIED (6) Parkinson disease Code(s): G20 - PARKINSON'S DISEASE Assessment/Plan (1) Septic shock -resolved (2) UTI (urinary tract infection) Assessment/Plan: -appreciate ID assistance -now on amoxicillin Code(s): N39.0 - URINARY TRACT INFECTION, SITE NOT SPECIFIED Qualifiers: Urinary tract infection type: acute cystitis Hematuria presence: with hematuria Qualified Code(s): N30.01 - Acute cystitis with hematuria (3) Acute metabolic encephalopathy Assessment/Plan: resolved -at baseline Code(s): G93.41 - METABOLIC ENCEPHALOPATHY (4) Urinary retention Assessment/Plan: -for cystoscopy today Code(s): R33.9 - RETENTION OF URINE, UNSPECIFIED (5) Hematuria Assessment/Plan: -resolved -urology following Code(s): R31.9 - HEMATURIA, UNSPECIFIED (6) Parkinson disease Assessment/Plan: -appreciate neurology assistance -continue sinemet Code(s): G20 - PARKINSON'S DISEASE
[2016-10-02] MEDS ORDERED: ePHEDrine SULFATE 50 MG/1 ML AMPULE ONE (12:26)
[2016-10-02] MEDS ORDERED: ceFAZolin SODIUM 1 GM VIAL ONE (12:29)
[2016-10-02] MEDS: DEXTROSE 5%-NORMAL SALINE 1,000 ML IV SCH (20:22)
[2016-10-03] MEDS: AMOXICILLIN ORAL SUSPENSION - 250 MG/5 ML PO SCH ×3 (06:39→21:25)
[2016-10-03 08:06] LABS: BASOPHIL 0.4 % (0-2.0); EOSINOPHIL 1.5 % (0-4.5); MCH 30.6 pg (25.7-33.7); MCHC 33.8 g/dl (32.0-35.9); MEAN CELL VOLUME 90.3 fl (80-96); MEAN PLT VOLUME 8.3 fl (7.5-11.1); PLATELET COUNT 428 K/MM3 (134-434); RDW 14.8 % (11.9-15.9); WHITE BLOOD COUNT 10.1 K/mm3 (4.0-10.0)
[2016-10-03 08:28] LABS: CALCIUM 7.8 mg/dL (8.5-10.1); MAGNESIUM 1.9 mg/dL (1.8-2.4)
[2016-10-03 08:30] LABS: COCKROFT - GAULT 90.3; CREATININE 0.5 mg/dL (0.7-1.3); PHOSPHOROUS 2.6 mg/dL (2.5-4.9)
[2016-10-03] MEDS: HEPARIN NA (PORCINE) 5,000 UNITS/ML 1ML VIAL SQ SCH ×2 (09:47→21:26)
[2016-10-03] MEDS: CARBIDOPA/LEVODOPA 25/100 TABLET (FP) PO SCH ×4 (09:47→21:26)
[2016-10-03] MEDS: SOLIFENACIN SUCCINATE 5 MG TAB (FP) PO SCH (09:47)
[2016-10-03] MEDS: DUTASTERIDE 0.5 MG CAP (FP) PO SCH (09:47)
--- NOTE | 2016-10-03 10:44 | PN ---
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 (short form) - Note 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: Patient nonverbal. S/P TUVP. No acute events overnight. Intake & Output 09/30/16 10/01/16 10/02/16 10/03/16 23:59 23:59 23:59 23:59 Intake Total 1525 1225 41179 4600 Output Total 1400 1500 99177 6300 Balance 090 -097 -8160 -1486 Weight 120 lb 8 oz 118 lb 4 oz 117 lb 8 oz Last Vital Signs Temp Pulse Resp BP Pulse Ox 99.1 F 82 20 111/51 100 10/03/16 06:00 10/03/16 06:00 10/03/16 06:00 10/03/16 06:00 10/02/16 14:40 Active Medications Acetaminophen (Tylenol -) 650 mg PO Q8H PRN PRN Reason: FEVER OR PAIN Amoxicillin (Amoxicillin Suspension -) 500 mg PO TID [facility] Last Admin: 10/03/16 06:39 Dose: 500 mg Carbidopa/Levodopa (Sinemet 25/100 -) 1 each PO QID [facility] Last Admin: 10/03/16 09:47 Dose: 1 each Dutasteride (Avodart -) 0.5 mg PO DAILY [facility] Last Admin: 10/03/16 09:47 Dose: 0.5 mg Heparin Sodium (Porcine) (Heparin -) 5,000 unit SQ BID [facility] Last Admin: 10/03/16 09:47 Dose: 5,000 unit Dextrose/Sodium Chloride (D5-Ns -) 1,000 mls @ 75 mls/hr IV ASDIR [facility] Last Admin: 10/02/16 20:22 Dose: 75 mls/hr Solifenacin (Vesicare -) 10 mg PO DAILY [facility] Last Admin: 10/03/16 09:47 Dose: 10 mg Gen: nonverbal, breathing nonlabored Heart: RRR Lung: decreased breath sounds at the bases Abd: soft, nontender Ext: no edema, contracted Laboratory Results - last 24 hr 10/03/16 10/03/16 06:20 06:20 WBC 10.1 H RBC 3.43 L Hgb 10.5 L Hct 31.0 L MCV 90.3 MCHC 33.8 RDW 14.8 Plt Count 428 MPV 8.3 Neutrophils % 80.0 Lymphocytes % 9.7 D Monocytes % 8.4 Eosinophils % 1.5 Basophils % 0.4 Sodium 137 Potassium 4.5 Chloride 99 Carbon Dioxide 27 Anion Gap 11 BUN 10 Creatinine 0.5 L Random Glucose 96 Calcium 7.8 L Phosphorus 2.6 Magnesium 1.9 A/P UTI Resolved Septic Shock BPH Parkinson's Disease Dementia Altered Mental Status - ABX per ID - IVF - monitor urine output, creatinine - aspiration precautions - DVT prophylaxis Dr Duncan
--- NOTE | 2016-10-03 13:32 | PN ---
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, Physician Chief Complaint: S/P CYSTOSCOPY AND TURP UNDER GENERAL ANESTHESIA History of Present Illness: Post op day one - Current Medication List Current Medications: Active Medications Acetaminophen (Tylenol -) 650 mg PO Q8H PRN PRN Reason: FEVER OR PAIN Amoxicillin (Amoxicillin Suspension -) 500 mg PO TID [facility] Last Admin: 10/03/16 06:39 Dose: 500 mg Carbidopa/Levodopa (Sinemet 25/100 -) 1 each PO QID [facility] Last Admin: 10/03/16 09:47 Dose: 1 each Dutasteride (Avodart -) 0.5 mg PO DAILY [facility] Last Admin: 10/03/16 09:47 Dose: 0.5 mg Heparin Sodium (Porcine) (Heparin -) 5,000 unit SQ BID [facility] Last Admin: 10/03/16 09:47 Dose: 5,000 unit Dextrose/Sodium Chloride (D5-Ns -) 1,000 mls @ 75 mls/hr IV ASDIR [facility] Last Admin: 10/02/16 20:22 Dose: 75 mls/hr Solifenacin (Vesicare -) 10 mg PO DAILY [facility] Last Admin: 10/03/16 09:47 Dose: 10 mg - Objective Vital Signs: Vital Signs Temperature 99.1 F 10/03/16 06:00 Pulse Rate 82 10/03/16 06:00 Respiratory Rate 20 10/03/16 09:00 Blood Pressure 111/51 10/03/16 06:00 O2 Sat by Pulse Oximetry (%) 100 10/02/16 14:40 Constitutional: Yes: Well Nourished Cardiovascular: Yes: WNL Respiratory: Yes: WNL Gastrointestinal: Yes: WNL Labs: CBC, BMP 10/03/16 06:20 10/03/16 06:20 INR, PTT INR 1.36 (0.82-1.09) H 09/30/16 06:00 Assessment/Plan No adverse effects of anesthetic apparent, dept of anesthesia will sign off care at this time.
--- NOTE | 2016-10-03 14:04 | PATH ---
Surgical Pathology Report Patient Name: LATRICIA SAHU Med. Rec. #: [id number] /Age/Gender: 1935 (Age: 81) / M Account: [id number] Location: [facility] Taken: 10/02/2016 Received: 10/02/2016 Reported: 10/03/2016 Physicians: Lee Perry M.D. Specimen(s) Received PROSTATE CHIPS Clinical History BPH Final Diagnosis PROSTATE, TUR: FRAGMENTS OF BENIGN PROSTATE TISSUE WITH STROMAL HYPERPLASIA; FRAGMENT OF BENIGN UROTHELIUM WITH ACTIVE INFLAMMATION. Electronically Signed Alex Hyde M.D. Gross Description Received in formalin labeled "prostate tissue" is a 1 g, 2.0 x 1.0 x 0.2 cm in aggregate of anna-brown soft tissue fragments. The formalin is filtered and the specimen is entirely submitted in one cassette. /10/02/2016 saudi/10/02/2016
--- NOTE | 2016-10-03 15:31 | PN ---
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, Physician Chief Complaint: Mr Cullen says hello and that it is good to see me today. Unable to obtain further subjective but improvement from before. - Current Medication List Current Medications: Active Medications Acetaminophen (Tylenol -) 650 mg PO Q8H PRN PRN Reason: FEVER OR PAIN Amoxicillin (Amoxicillin Suspension -) 500 mg PO TID [facility] Last Admin: 10/03/16 13:42 Dose: 500 mg Carbidopa/Levodopa (Sinemet 25/100 -) 1 each PO QID [facility] Last Admin: 10/03/16 13:42 Dose: 1 each Dutasteride (Avodart -) 0.5 mg PO DAILY [facility] Last Admin: 10/03/16 09:47 Dose: 0.5 mg Heparin Sodium (Porcine) (Heparin -) 5,000 unit SQ BID [facility] Last Admin: 10/03/16 09:47 Dose: 5,000 unit Dextrose/Sodium Chloride (D5-Ns -) 1,000 mls @ 75 mls/hr IV ASDIR [facility] Last Admin: 10/02/16 20:22 Dose: 75 mls/hr Solifenacin (Vesicare -) 10 mg PO DAILY [facility] Last Admin: 10/03/16 09:47 Dose: 10 mg - Objective Vital Signs: Vital Signs Temperature 99.1 F 10/03/16 06:00 Pulse Rate 82 10/03/16 06:00 Respiratory Rate 20 10/03/16 09:00 Blood Pressure 111/51 10/03/16 06:00 O2 Sat by Pulse Oximetry (%) 100 10/02/16 14:40 Constitutional: Yes: No Distress, Calm, Thin Cardiovascular: Yes: Regular Rate and Rhythm. No: Gallop, Murmur, Rub Respiratory: Yes: Regular, CTA Bilaterally. No: Rales, Rhonchi, Wheezes Gastrointestinal: Yes: Normal Bowel Sounds, Soft. No: Distention, Tenderness Extremities: Yes: WNL Edema: No Labs: CBC, BMP 10/03/16 06:20 10/03/16 06:20 INR, PTT INR 1.36 (0.82-1.09) H 09/30/16 06:00 Problem List - Problems (1) Septic shock Code(s): A41.9 - SEPSIS, UNSPECIFIED ORGANISM R65.21 - SEVERE SEPSIS WITH SEPTIC SHOCK (2) UTI (urinary tract infection) Code(s): N39.0 - URINARY TRACT INFECTION, SITE NOT SPECIFIED Qualifiers: Urinary tract infection type: acute cystitis Hematuria presence: with hematuria Qualified Code(s): N30.01 - Acute cystitis with hematuria (3) Acute metabolic encephalopathy Code(s): G93.41 - METABOLIC ENCEPHALOPATHY (4) Urinary retention Code(s): R33.9 - RETENTION OF URINE, UNSPECIFIED (5) Hematuria Code(s): R31.9 - HEMATURIA, UNSPECIFIED (6) Parkinson disease Code(s): G20 - PARKINSON'S DISEASE Assessment/Plan (1) Septic shock -resolved (2) UTI (urinary tract infection) Assessment/Plan: -appreciate ID assistance -continue amoxicillin Code(s): N39.0 - URINARY TRACT INFECTION, SITE NOT SPECIFIED Qualifiers: Urinary tract infection type: acute cystitis Hematuria presence: with hematuria Qualified Code(s): N30.01 - Acute cystitis with hematuria (3) Acute metabolic encephalopathy Assessment/Plan: -resolved -at baseline Code(s): G93.41 - METABOLIC ENCEPHALOPATHY (4) Urinary retention Assessment/Plan: -patient s/p cystoscopy and TURP -urology following Code(s): R33.9 - RETENTION OF URINE, UNSPECIFIED (5) Hematuria Assessment/Plan: -resolved -urology following Code(s): R31.9 - HEMATURIA, UNSPECIFIED (6) Parkinson disease Assessment/Plan: -appreciate neurology assistance -continue sinemet Code(s): G20 - PARKINSON'S DISEASE Dispo -discharge when cleared from urology standpoint
[2016-10-03] MEDS: ACETAMINOPHEN 325 MG TABLET (FP) PO PRN (21:26)
[2016-10-04] MEDS: AMOXICILLIN ORAL SUSPENSION - 250 MG/5 ML PO SCH ×3 (06:21→22:24)
[2016-10-04] MEDS: DEXTROSE 5%-NORMAL SALINE 1,000 ML IV SCH ×3 (08:02→18:39)
[2016-10-04 08:17] LABS: BASOPHIL 0.9 % (0-2.0); EOSINOPHIL 1.1 % (0-4.5); MCH 30.2 pg (25.7-33.7); MCHC 33.3 g/dl (32.0-35.9); MEAN CELL VOLUME 90.6 fl (80-96); MEAN PLT VOLUME 8.8 fl (7.5-11.1); NEUTROPHILS 81.6 % (42.8-82.8); PLATELET COUNT 480 K/MM3 (134-434); RDW 14.8 % (11.9-15.9); WHITE BLOOD COUNT 12.5 K/mm3 (4.0-10.0)
[2016-10-04 09:17] LABS: CALCIUM 8.3 mg/dL (8.5-10.1); COCKROFT - GAULT 90.3; CREATININE 0.5 mg/dL (0.7-1.3)
[2016-10-04] MEDS ORDERED: SODIUM CHLORIDE 500 ML IV ONE (09:45)
[2016-10-04] MEDS: HEPARIN NA (PORCINE) 5,000 UNITS/ML 1ML VIAL SQ SCH ×2 (10:07→22:04)
[2016-10-04] MEDS: SOLIFENACIN SUCCINATE 5 MG TAB (FP) PO SCH (10:07)
[2016-10-04] MEDS: DUTASTERIDE 0.5 MG CAP (FP) PO SCH (10:07)
[2016-10-04] MEDS: CARBIDOPA/LEVODOPA 25/100 TABLET (FP) PO SCH ×4 (10:07→22:04)
[2016-10-04] MEDS: ACETAMINOPHEN 325 MG TABLET (FP) PO PRN (12:31)
--- NOTE | 2016-10-04 12:37 | PN ---
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 (short form) - Note 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: pt. s/p tuvp to avoid overflow incontenence abd. soft no cva tenderness ochoa patent urine clear plan.-d/c cbi today and ochoa in am. Problem List - Problems (1) Altered mental status Code(s): R41.82 - ALTERED MENTAL STATUS, UNSPECIFIED Qualifiers: Altered mental status type: unspecified Qualified Code(s): R41.82 - Altered mental status, unspecified (2) Multiple drug resistant organism (MDRO) culture positive Code(s): Z16.24 - RESISTANCE TO MULTIPLE ANTIBIOTICS (3) Parkinson disease Code(s): G20 - PARKINSON'S DISEASE (4) Septic shock Code(s): A41.9 - SEPSIS, UNSPECIFIED ORGANISM R65.21 - SEVERE SEPSIS WITH SEPTIC SHOCK (5) UTI (urinary tract infection) Code(s): N39.0 - URINARY TRACT INFECTION, SITE NOT SPECIFIED Qualifiers: Urinary tract infection type: acute cystitis Hematuria presence: with hematuria Qualified Code(s): N30.01 - Acute cystitis with hematuria (6) Urinary retention Code(s): R33.9 - RETENTION OF URINE, UNSPECIFIED (7) Acute metabolic encephalopathy Code(s): G93.41 - METABOLIC ENCEPHALOPATHY (8) Fracture of trochanter of left femur Code(s): S72.102A - UNSP TROCHANTERIC FRACTURE OF LEFT FEMUR, INIT FOR CLOS FX Qualifiers: Encounter type: initial encounter Fracture type: closed Qualified Code(s): S72.102A - Unspecified trochanteric fracture of left femur, initial encounter for closed fracture (9) Hematuria Code(s): R31.9 - HEMATURIA, UNSPECIFIED (10) Maxillary sinusitis, acute Code(s): J01.00 - ACUTE MAXILLARY SINUSITIS, UNSPECIFIED (11) Pleural effusion Code(s): J90 - PLEURAL EFFUSION, NOT ELSEWHERE CLASSIFIED (12) Ribs, multiple fractures Code(s): S22.49XA - MULTIPLE FRACTURES OF RIBS, UNSP SIDE, INIT FOR CLOS FX Qualifiers: Encounter type: initial encounter Fracture type: closed Laterality : left Qualified Code(s): S22.42XA - Multiple fractures of ribs, left side, initial encounter for closed fracture (13) Upper respiratory infection Code(s): J06.9 - ACUTE UPPER RESPIRATORY INFECTION, UNSPECIFIED Qualifiers: URI type: unspecified viral URI Qualified Code(s): J06.9 - Acute upper respiratory infection, unspecified; B97.89 - Other viral agents as the cause of diseases classified elsewhere
--- NOTE | 2016-10-04 13:58 | PN ---
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, Physician Chief Complaint: Unable to obtain. Mr Cullen smiles today but is not speaking. - Current Medication List Current Medications: Active Medications Acetaminophen (Tylenol -) 650 mg PO Q8H PRN PRN Reason: FEVER OR PAIN Last Admin: 10/04/16 12:31 Dose: 650 mg Amoxicillin (Amoxicillin Suspension -) 500 mg PO TID [facility] Last Admin: 10/04/16 06:21 Dose: 500 mg Carbidopa/Levodopa (Sinemet 25/100 -) 1 each PO QID [facility] Last Admin: 10/04/16 10:07 Dose: 1 each Dutasteride (Avodart -) 0.5 mg PO DAILY [facility] Last Admin: 10/04/16 10:07 Dose: 0.5 mg Heparin Sodium (Porcine) (Heparin -) 5,000 unit SQ BID [facility] Last Admin: 10/04/16 10:07 Dose: 5,000 unit Dextrose/Sodium Chloride (D5-Ns -) 1,000 mls @ 75 mls/hr IV ASDIR [facility] Last Admin: 10/04/16 13:07 Dose: 75 mls/hr Solifenacin (Vesicare -) 10 mg PO DAILY [facility] Last Admin: 10/04/16 10:07 Dose: 10 mg Tamsulosin HCl (Flomax -) 0.4 mg PO DAILY@0830 [facility] - Objective Vital Signs: Vital Signs Temperature 100.4 F H 10/04/16 10:00 Pulse Rate 78 10/04/16 10:00 Respiratory Rate 18 10/04/16 10:00 Blood Pressure 91/49 10/04/16 10:00 O2 Sat by Pulse Oximetry (%) 100 10/02/16 14:40 Constitutional: Yes: No Distress, Calm, Thin Cardiovascular: Yes: Regular Rate and Rhythm. No: Gallop, Murmur, Rub Respiratory: Yes: Regular, CTA Bilaterally. No: Rales, Rhonchi, Wheezes Gastrointestinal: Yes: Normal Bowel Sounds, Soft. No: Distention, Tenderness Extremities: Yes: WNL Edema: No Labs: CBC, BMP 10/04/16 06:50 10/04/16 06:50 INR, PTT INR 1.36 (0.82-1.09) H 09/30/16 06:00 Problem List - Problems (1) Septic shock Code(s): A41.9 - SEPSIS, UNSPECIFIED ORGANISM R65.21 - SEVERE SEPSIS WITH SEPTIC SHOCK (2) UTI (urinary tract infection) Code(s): N39.0 - URINARY TRACT INFECTION, SITE NOT SPECIFIED Qualifiers: Urinary tract infection type: acute cystitis Hematuria presence: with hematuria Qualified Code(s): N30.01 - Acute cystitis with hematuria (3) Acute metabolic encephalopathy Code(s): G93.41 - METABOLIC ENCEPHALOPATHY (4) Urinary retention Code(s): R33.9 - RETENTION OF URINE, UNSPECIFIED (5) Hematuria Code(s): R31.9 - HEMATURIA, UNSPECIFIED (6) Parkinson disease Code(s): G20 - PARKINSON'S DISEASE Assessment/Plan (1) Septic shock -resolved -however leukocytosis increasing, may be secondary to surgery and transient bacteremia -continue amoxicillin, recheck cbc in am (2) UTI (urinary tract infection) Assessment/Plan: -appreciate ID assistance -continue amoxicillin day 5 Code(s): N39.0 - URINARY TRACT INFECTION, SITE NOT SPECIFIED Qualifiers: Urinary tract infection type: acute cystitis Hematuria presence: with hematuria Qualified Code(s): N30.01 - Acute cystitis with hematuria (3) Acute metabolic encephalopathy Assessment/Plan: -resolved -at baseline Code(s): G93.41 - METABOLIC ENCEPHALOPATHY (4) Urinary retention Assessment/Plan: -patient s/p cystoscopy and TURP -urology following, remove CBI today per urology Code(s): R33.9 - RETENTION OF URINE, UNSPECIFIED (5) Hematuria Assessment/Plan: -resolved -urology following Code(s): R31.9 - HEMATURIA, UNSPECIFIED (6) Parkinson disease Assessment/Plan: -appreciate neurology assistance -continue sinemet Code(s): G20 - PARKINSON'S DISEASE
[2016-10-05] MEDS: DEXTROSE 5%-NORMAL SALINE 1,000 ML IV SCH ×2 (01:55→18:11)
[2016-10-05] MEDS: AMOXICILLIN ORAL SUSPENSION - 250 MG/5 ML PO SCH (06:26)
[2016-10-05] MEDS: ACETAMINOPHEN 325 MG TABLET (FP) PO PRN ×2 (06:35→21:41)
[2016-10-05 08:50] LABS: BASOPHIL 0.9 % (0-2.0); EOSINOPHIL 0.8 % (0-4.5); MCH 30.4 pg (25.7-33.7); MCHC 33.5 g/dl (32.0-35.9); MEAN CELL VOLUME 90.5 fl (80-96); MEAN PLT VOLUME 8.6 fl (7.5-11.1); NEUTROPHILS 79.5 % (42.8-82.8); PLATELET COUNT 457 K/MM3 (134-434); RDW 15.1 % (11.9-15.9); WHITE BLOOD COUNT 9.4 K/mm3 (4.0-10.0)
[2016-10-05 08:54] LABS: CALCIUM 7.6 mg/dL (8.5-10.1); COCKROFT - GAULT 77.37; CREATININE 0.6 mg/dL (0.7-1.3); MAGNESIUM 1.9 mg/dL (1.8-2.4); PHOSPHOROUS 2.6 mg/dL (2.5-4.9)
--- NOTE | 2016-10-05 09:01 | PN ---
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 (short form) - Note 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: Patient nonverbal. Awake in NAD. No acute events overnight. (+) Fever Intake & Output 10/02/16 10/03/16 10/04/16 10/05/16 23:59 23:59 23:59 23:59 Intake Total 91647 8420 150 900 Output Total 82062 69536 5050 200 Balance -7160 -9280 -4900 700 Weight 117 lb 8 oz 120 lb 12.8 oz Last Vital Signs Temp Pulse Resp BP Pulse Ox 101.3 F H 87 20 127/79 97 10/05/16 06:00 10/05/16 06:00 10/05/16 06:00 10/05/16 06:00 10/04/16 21:00 Active Medications Acetaminophen (Tylenol -) 650 mg PO Q8H PRN PRN Reason: FEVER OR PAIN Last Admin: 10/05/16 06:35 Dose: 650 mg Amoxicillin (Amoxicillin Suspension -) 500 mg PO TID [facility] Last Admin: 10/05/16 06:26 Dose: 10 ml Carbidopa/Levodopa (Sinemet 25/100 -) 1 each PO QID [facility] Last Admin: 10/04/16 22:04 Dose: 1 each Dutasteride (Avodart -) 0.5 mg PO DAILY [facility] Last Admin: 10/04/16 10:07 Dose: 0.5 mg Heparin Sodium (Porcine) (Heparin -) 5,000 unit SQ BID [facility] Last Admin: 10/04/16 22:04 Dose: 5,000 unit Dextrose/Sodium Chloride (D5-Ns -) 1,000 mls @ 75 mls/hr IV ASDIR [facility] Last Admin: 10/05/16 01:55 Dose: 75 mls/hr Solifenacin (Vesicare -) 10 mg PO DAILY [facility] Last Admin: 10/04/16 10:07 Dose: 10 mg Tamsulosin HCl (Flomax -) 0.4 mg PO DAILY@0830 [facility] Gen: nonverbal, breathing nonlabored Heart: RRR Lung: decreased breath sounds at the bases Abd: soft, nontender Ext: no edema, contracted Laboratory Results - last 24 hr 10/04/16 06:50 Sodium 139 Potassium 4.3 Chloride 99 Carbon Dioxide 26 Anion Gap 14 BUN 8 Creatinine 0.5 L Random Glucose 89 Calcium 8.3 L Phosphorus 3.0 Magnesium 2.0 A/P UTI Resolved Septic Shock BPH Parkinson's Disease Dementia Altered Mental Status - ID follow up to address fever -> Labs are pending - Increase IVF - monitor urine output, creatinine - aspiration precautions - DVT prophylaxis Dr Duncan
[2016-10-05] MEDS ORDERED: SODIUM CHLORIDE 0.9% 1000 ML INFUS.BAG IV ONE (09:03)
[2016-10-05] MEDS ORDERED: SODIUM CHLORIDE IV ONE (09:15)
[2016-10-05] MEDS: SOLIFENACIN SUCCINATE 5 MG TAB (FP) PO SCH ×2 (09:22→09:47)
[2016-10-05] MEDS: DUTASTERIDE 0.5 MG CAP (FP) PO SCH ×2 (09:22→09:47)
[2016-10-05] MEDS: TAMSULOSIN HCL 0.4 MG CAP.ER.24H (FP) PO SCH ×2 (09:22→09:47)
[2016-10-05] MEDS: CARBIDOPA/LEVODOPA 25/100 TABLET (FP) PO SCH ×5 (09:22→21:17)
[2016-10-05] MEDS: HEPARIN NA (PORCINE) 5,000 UNITS/ML 1ML VIAL SQ SCH ×2 (09:25→21:17)
--- NOTE | 2016-10-05 09:47 | PN ---
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, Physician Chief Complaint: ID Asked to see patient with fever 101 poorly responsive Had been on Amoxicillin for apha strep in urine culture. Has been getting urinary irrigation for 2 post op days and ochoa removed this am early Previous ESBL in May but not now Day 3 post prostate surgery - Current Medication List Current Medications: Active Medications Acetaminophen (Tylenol -) 650 mg PO Q8H PRN PRN Reason: FEVER OR PAIN Last Admin: 10/05/16 06:35 Dose: 650 mg Amoxicillin (Amoxicillin Suspension -) 500 mg PO TID [facility] Last Admin: 10/05/16 06:26 Dose: 10 ml Carbidopa/Levodopa (Sinemet 25/100 -) 1 each PO QID [facility] Last Admin: 10/04/16 22:04 Dose: 1 each Dutasteride (Avodart -) 0.5 mg PO DAILY [facility] Last Admin: 10/04/16 10:07 Dose: 0.5 mg Heparin Sodium (Porcine) (Heparin -) 5,000 unit SQ BID [facility] Last Admin: 10/04/16 22:04 Dose: 5,000 unit Dextrose/Sodium Chloride (D5-Ns -) 1,000 mls @ 75 mls/hr IV ASDIR [facility] Last Admin: 10/05/16 01:55 Dose: 75 mls/hr Sodium Chloride (Normal Saline -) 1,600 mls @ 800 mls/hr IV ASDIR ONE Stop: 10/05/16 11:14 Last Admin: 10/05/16 09:17 Dose: 800 mls/hr Solifenacin (Vesicare -) 10 mg PO DAILY [facility] Last Admin: 10/04/16 10:07 Dose: 10 mg Tamsulosin HCl (Flomax -) 0.4 mg PO DAILY@0830 [facility] - Objective Vital Signs: Vital Signs Temperature 100.3 F H 10/05/16 09:00 Pulse Rate 71 10/05/16 09:00 Respiratory Rate 16 10/05/16 09:00 Blood Pressure 87/48 10/05/16 09:00 O2 Sat by Pulse Oximetry (%) 97 10/04/16 21:00 Constitutional: Yes: Other (Cachectic Poorly responsive) Cardiovascular: Yes: Regular Rate and Rhythm, S1, S2. No: Murmur Respiratory: Yes: WNL, Regular, CTA Bilaterally Gastrointestinal: Yes: WNL, Normal Bowel Sounds, Soft. No: Tenderness Edema: No Labs: CBC, BMP 10/05/16 06:30 10/05/16 06:30 INR, PTT INR 1.36 (0.82-1.09) H 09/30/16 06:00 Problem List - Problems (1) UTI (urinary tract infection) Code(s): N39.0 - URINARY TRACT INFECTION, SITE NOT SPECIFIED Qualifiers: Urinary tract infection type: acute cystitis Hematuria presence: with hematuria Qualified Code(s): N30.01 - Acute cystitis with hematuria (2) Urinary retention Code(s): R33.9 - RETENTION OF URINE, UNSPECIFIED (3) Multiple drug resistant organism (MDRO) culture positive Code(s): Z16.24 - RESISTANCE TO MULTIPLE ANTIBIOTICS Assessment/Plan Laboratory Tests 10/05/16 10/05/16 06:30 06:30 WBC 9.4 Hgb 9.4 L D Hct 28.1 L D Plt Count 457 H BUN 9 Creatinine 0.6 L IMPRESSION Sepsis syndrome day 3 post op prostate surgery now with fever Ochoa out this morning Functional status poor Discussed with critical care Panculture Zosyn Stop Amoxicillin
[2016-10-05] MEDS ORDERED: SODIUM CHLORIDE 500 ML IV STA (14:39)
--- NOTE | 2016-10-05 16:12 | PN ---
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, Physician Chief Complaint: Unable to obtain. Called to room by RN secondary to hypotension, even after fluid bolus. Awake now, RN says he was unresponsive earlier. - Current Medication List Current Medications: Active Medications Acetaminophen (Tylenol -) 650 mg PO Q8H PRN PRN Reason: FEVER OR PAIN Last Admin: 10/05/16 06:35 Dose: 650 mg Carbidopa/Levodopa (Sinemet 25/100 -) 1 each PO QID [facility] Last Admin: 10/05/16 13:51 Dose: 1 each Dutasteride (Avodart -) 0.5 mg PO DAILY [facility] Last Admin: 10/05/16 09:47 Dose: Not Given Heparin Sodium (Porcine) (Heparin -) 5,000 unit SQ BID [facility] Last Admin: 10/05/16 09:25 Dose: 5,000 unit Dextrose/Sodium Chloride (D5-Ns -) 1,000 mls @ 75 mls/hr IV ASDIR [facility] Last Admin: 10/05/16 01:55 Dose: 75 mls/hr Piperacillin Sod/Tazobactam Sod (Zosyn 3.375gm Ivpb (Pre-Docked)) 50 mls @ 100 mls/hr IVPB Q8H-IV [facility] PRN Reason: Protocol Solifenacin (Vesicare -) 10 mg PO DAILY [facility] Last Admin: 10/05/16 09:47 Dose: Not Given Tamsulosin HCl (Flomax -) 0.4 mg PO DAILY@0830 [facility] Last Admin: 10/05/16 09:47 Dose: Not Given - Objective Vital Signs: Vital Signs Temperature 98.8 F 10/05/16 14:55 Pulse Rate 76 10/05/16 14:55 Respiratory Rate 16 10/05/16 14:55 Blood Pressure 110/58 10/05/16 14:55 O2 Sat by Pulse Oximetry (%) 98 10/05/16 09:00 Constitutional: Yes: No Distress, Calm, Thin Cardiovascular: Yes: Tachycardia. No: Gallop, Murmur, Rub Respiratory: Yes: Regular, CTA Bilaterally. No: Rales, Rhonchi, Wheezes Gastrointestinal: Yes: Normal Bowel Sounds, Soft. No: Distention, Tenderness Extremities: Yes: WNL Edema: No Labs: CBC, BMP 10/05/16 06:30 10/05/16 06:30 INR, PTT INR 1.36 (0.82-1.09) H 09/30/16 06:00 Problem List - Problems (1) Septic shock Code(s): A41.9 - SEPSIS, UNSPECIFIED ORGANISM R65.21 - SEVERE SEPSIS WITH SEPTIC SHOCK (2) UTI (urinary tract infection) Code(s): N39.0 - URINARY TRACT INFECTION, SITE NOT SPECIFIED Qualifiers: Urinary tract infection type: acute cystitis Hematuria presence: with hematuria Qualified Code(s): N30.01 - Acute cystitis with hematuria (3) Acute metabolic encephalopathy Code(s): G93.41 - METABOLIC ENCEPHALOPATHY (4) Urinary retention Code(s): R33.9 - RETENTION OF URINE, UNSPECIFIED (5) Hematuria Code(s): R31.9 - HEMATURIA, UNSPECIFIED (6) Parkinson disease Code(s): G20 - PARKINSON'S DISEASE Assessment/Plan (1) Septic shock -recurred -suspect secondary to bacteremia from procedures -ID following -on zosyn (2) UTI (urinary tract infection) Assessment/Plan: -appreciate ID assistance -changed to zosyn today as above Code(s): N39.0 - URINARY TRACT INFECTION, SITE NOT SPECIFIED Qualifiers: Urinary tract infection type: acute cystitis Hematuria presence: with hematuria Qualified Code(s): N30.01 - Acute cystitis with hematuria (3) Acute metabolic encephalopathy Assessment/Plan: -resolved -at baseline Code(s): G93.41 - METABOLIC ENCEPHALOPATHY (4) Urinary retention Assessment/Plan: -patient s/p cystoscopy and TURP -ochoa had to be replaced secondary to retention Code(s): R33.9 - RETENTION OF URINE, UNSPECIFIED (5) Hematuria Assessment/Plan: -resolved -urology following Code(s): R31.9 - HEMATURIA, UNSPECIFIED (6) Parkinson disease Assessment/Plan: -appreciate neurology assistance -continue sinemet Code(s): G20 - PARKINSON'S DISEASE
[2016-10-05] MEDS ORDERED: PIPERACILLIN/TAZOB 3.375 GM 50 ML IVPB SCH (18:00)
[2016-10-06] MEDS: PIPERACILLIN/TAZOB 3.375 GM/50 ML PRE-DOCKED IVPB SCH ×3 (02:16→18:58)
[2016-10-06] MEDS: DEXTROSE 5%-NORMAL SALINE 1,000 ML IV SCH ×2 (07:03→18:58)
[2016-10-06 07:31] LABS: EOSINOPHIL 2.5 % (0-4.5); MCH 30.8 pg (25.7-33.7); MCHC 34.1 g/dl (32.0-35.9); MEAN CELL VOLUME 90.4 fl (80-96); MEAN PLT VOLUME 8.2 fl (7.5-11.1); NEUTROPHILS 76.2 % (42.8-82.8); PLATELET COUNT 446 K/MM3 (134-434); RDW 14.6 % (11.9-15.9); WHITE BLOOD COUNT 8.2 K/mm3 (4.0-10.0)
[2016-10-06 07:56] LABS: CALCIUM 7.6 mg/dL (8.5-10.1); CREATININE 0.6 mg/dL (0.7-1.3); MAGNESIUM 1.8 mg/dL (1.8-2.4)
[2016-10-06] MEDS: TAMSULOSIN HCL 0.4 MG CAP.ER.24H (FP) PO SCH (08:21)
[2016-10-06] MEDS: HEPARIN NA (PORCINE) 5,000 UNITS/ML 1ML VIAL SQ SCH ×2 (10:59→22:50)
[2016-10-06] MEDS: DUTASTERIDE 0.5 MG CAP (FP) PO SCH (10:59)
[2016-10-06] MEDS: SOLIFENACIN SUCCINATE 5 MG TAB (FP) PO SCH (10:59)
[2016-10-06] MEDS: CARBIDOPA/LEVODOPA 25/100 TABLET (FP) PO SCH ×4 (10:59→22:51)
--- NOTE | 2016-10-06 11:42 | PN ---
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 Encourage PO intake/supplements as tolerated.
--- NOTE | 2016-10-06 12:11 | PN ---
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, Physician Chief Complaint: Mr Cullen is awake today, much improved from yesterday. Still unable to obtain subjective secondary to dementia. - Current Medication List Current Medications: Active Medications Acetaminophen (Tylenol -) 650 mg PO Q8H PRN PRN Reason: FEVER OR PAIN Last Admin: 10/05/16 21:41 Dose: 650 mg Carbidopa/Levodopa (Sinemet 25/100 -) 1 each PO QID [facility] Last Admin: 10/06/16 10:59 Dose: 1 each Dutasteride (Avodart -) 0.5 mg PO DAILY [facility] Last Admin: 10/06/16 10:59 Dose: 0.5 mg Heparin Sodium (Porcine) (Heparin -) 5,000 unit SQ BID [facility] Last Admin: 10/06/16 10:59 Dose: 5,000 unit Dextrose/Sodium Chloride (D5-Ns -) 1,000 mls @ 75 mls/hr IV ASDIR [facility] Last Admin: 10/06/16 07:03 Dose: 75 mls/hr Piperacillin Sod/Tazobactam Sod (Zosyn 3.375gm Ivpb (Pre-Docked)) 3.375 gm IVPB Q8H-IV [facility] Last Admin: 10/06/16 10:59 Dose: 3.375 gm Solifenacin (Vesicare -) 10 mg PO DAILY [facility] Last Admin: 10/06/16 10:59 Dose: 10 mg Tamsulosin HCl (Flomax -) 0.4 mg PO DAILY@0830 [facility] Last Admin: 10/06/16 08:21 Dose: 0.4 mg - Objective Vital Signs: Vital Signs Temperature 98.9 F 10/06/16 10:00 Pulse Rate 71 10/06/16 10:00 Respiratory Rate 18 10/06/16 10:00 Blood Pressure 106/63 10/06/16 10:00 O2 Sat by Pulse Oximetry (%) 98 10/06/16 09:00 Constitutional: Yes: No Distress, Calm, Thin Cardiovascular: Yes: Regular Rate and Rhythm. No: Gallop, Murmur, Rub Respiratory: Yes: Regular, CTA Bilaterally. No: Rales, Rhonchi, Wheezes Gastrointestinal: Yes: Normal Bowel Sounds, Soft. No: Distention, Tenderness Extremities: Yes: WNL Edema: No Labs: CBC, BMP 10/06/16 06:30 10/06/16 06:30 INR, PTT INR 1.36 (0.82-1.09) H 09/30/16 06:00 Problem List - Problems (1) Septic shock Code(s): A41.9 - SEPSIS, UNSPECIFIED ORGANISM R65.21 - SEVERE SEPSIS WITH SEPTIC SHOCK (2) UTI (urinary tract infection) Code(s): N39.0 - URINARY TRACT INFECTION, SITE NOT SPECIFIED Qualifiers: Urinary tract infection type: acute cystitis Hematuria presence: with hematuria Qualified Code(s): N30.01 - Acute cystitis with hematuria (3) Acute metabolic encephalopathy Code(s): G93.41 - METABOLIC ENCEPHALOPATHY (4) Urinary retention Code(s): R33.9 - RETENTION OF URINE, UNSPECIFIED (5) Hematuria Code(s): R31.9 - HEMATURIA, UNSPECIFIED (6) Parkinson disease Code(s): G20 - PARKINSON'S DISEASE Assessment/Plan (1) Septic shock -resolved -continue antibiotics per ID (2) UTI (urinary tract infection) Assessment/Plan: -appreciate ID assistance -continue zosyn Code(s): N39.0 - URINARY TRACT INFECTION, SITE NOT SPECIFIED Qualifiers: Urinary tract infection type: acute cystitis Hematuria presence: with hematuria Qualified Code(s): N30.01 - Acute cystitis with hematuria (3) Acute metabolic encephalopathy Assessment/Plan: -resolved -at baseline Code(s): G93.41 - METABOLIC ENCEPHALOPATHY (4) Urinary retention Assessment/Plan: -patient s/p cystoscopy and TURP -ochoa had to be replaced secondary to retention -continue ochoa, followed by urology Code(s): R33.9 - RETENTION OF URINE, UNSPECIFIED (5) Hematuria Assessment/Plan: -resolved -urology following Code(s): R31.9 - HEMATURIA, UNSPECIFIED (6) Parkinson disease Assessment/Plan: -appreciate neurology assistance -continue sinemet Code(s): G20 - PARKINSON'S DISEASE
--- NOTE | 2016-10-06 15:15 | PN ---
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 (short form) - Note 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: NAD Vital Signs Period Temp Pulse Resp BP Sys/Walker Pulse Ox Last 24 Hr 96.7 F-100.7 F 16-79 16-20 82-117/38-70 98-98 cor-rrr lungs clear abd soft,nt contracted ochoa CBC, BMP 10/06/16 06:30 10/06/16 06:30 Microbiology 10/05/16 10:15 Blood - Peripheral Venous Blood Culture - Preliminary NO GROWTH OBTAINED AFTER 24 HOURS, INCUBATION TO CONTINUE FOR 4 DAYS. 10/05/16 10:20 Blood - Peripheral Venous Blood Culture - Preliminary NO GROWTH OBTAINED AFTER 24 HOURS, INCUBATION TO CONTINUE FOR 4 DAYS. Current Medications Acetaminophen (Tylenol -) 650 mg PO Q8H PRN PRN Reason: FEVER OR PAIN Last Admin: 10/05/16 21:41 Dose: 650 mg Carbidopa/Levodopa (Sinemet 25/100 -) 1 each PO QID [facility] Last Admin: 10/06/16 10:59 Dose: 1 each Dutasteride (Avodart -) 0.5 mg PO DAILY [facility] Last Admin: 10/06/16 10:59 Dose: 0.5 mg Heparin Sodium (Porcine) (Heparin -) 5,000 unit SQ BID [facility] Last Admin: 10/06/16 10:59 Dose: 5,000 unit Dextrose/Sodium Chloride (D5-Ns -) 1,000 mls @ 75 mls/hr IV ASDIR [facility] Last Admin: 10/06/16 07:03 Dose: 75 mls/hr Piperacillin Sod/Tazobactam Sod (Zosyn 3.375gm Ivpb (Pre-Docked)) 3.375 gm IVPB Q8H-IV [facility] Last Admin: 10/06/16 10:59 Dose: 3.375 gm Solifenacin (Vesicare -) 10 mg PO DAILY [facility] Last Admin: 10/06/16 10:59 Dose: 10 mg Tamsulosin HCl (Flomax -) 0.4 mg PO DAILY@0830 [facility] Last Admin: 10/06/16 08:21 Dose: 0.4 mg cxray rotated a/p POD #4 sepsis continue zosyn, f/u cultures parkinsons disease s/p femur fracture
[2016-10-07] MEDS: PIPERACILLIN/TAZOB 3.375 GM/50 ML PRE-DOCKED IVPB SCH ×3 (02:06→19:09)
--- NOTE | 2016-10-07 08:31 | PN ---
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 (short form) - Note 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: Patient seen and examined. Chart reviewed at length. Post TURP, with Elam in place. Still confused but in no acute distress, lying supine in bed. Labs, operative notes and change consultant notes reviewed. Selected Entries 10/06/16 10/07/16 21:00 06:00 Temperature 99.5 F Pulse Rate 78 Respiratory 20 Rate Blood Pressure 122/64 O2 Sat by Pulse 98 Oximetry (%) Oxygen Delivery Room Air Method Laboratory Tests 10/06/16 10/06/16 06:30 06:30 WBC 8.2 Hgb 9.2 L Hct 27.0 L Plt Count 446 H Sodium 142 Potassium 4.3 Chloride 105 Carbon Dioxide 28 BUN 8 Creatinine 0.6 L Random Glucose 91 Calcium 7.6 L Phosphorus 3.0 Magnesium 1.8 Weight 123 lbs 14 oz Chest Clear Cor RRR Abd Soft No tenderness No mass Elam catheter Ext No edema No phlebitis Contractures Feet with protective bandages Neuro No new focal deficits Confusion Assessment and Plan Post TURP for obstructive uropathy F/C still in place Hematuria As above UTI with "urosepsis" and septic shock Improved On Zosyn Parkinsonism On Rx H/O femur fracture Dementia with toxic/metabolic encephalopathy On antibiotics Hypoalbuminemia Likely related to acute/chronic disease as well as nutritional factors Corrected Calcium 9.12 Anemia 9.2/27.0 Monitor Continue current Rx as outlined
[2016-10-07 08:58] LABS: BASOPHIL 0.2 % (0-2.0); EOSINOPHIL 2.3 % (0-4.5); MCH 31.3 pg (25.7-33.7); MCHC 34.8 g/dl (32.0-35.9); MEAN PLT VOLUME 7.6 fl (7.5-11.1); NEUTROPHILS 77.1 % (42.8-82.8); PLATELET COUNT 478 K/MM3 (134-434); RDW 14.6 % (11.9-15.9); WHITE BLOOD COUNT 7.9 K/mm3 (4.0-10.0)
[2016-10-07 09:19] LABS: CALCIUM 7.7 mg/dL (8.5-10.1); CREATININE 0.6 mg/dL (0.7-1.3); MAGNESIUM 1.6 mg/dL (1.8-2.4); PHOSPHOROUS 3.1 mg/dL (2.5-4.9)
[2016-10-07] MEDS: DEXTROSE 5%-NORMAL SALINE 1,000 ML IV SCH ×2 (09:31→17:30)
[2016-10-07] MEDS: TAMSULOSIN HCL 0.4 MG CAP.ER.24H (FP) PO SCH (09:32)
[2016-10-07] MEDS: SOLIFENACIN SUCCINATE 5 MG TAB (FP) PO SCH (09:32)
[2016-10-07] MEDS: CARBIDOPA/LEVODOPA 25/100 TABLET (FP) PO SCH ×4 (09:32→21:33)
[2016-10-07] MEDS: DUTASTERIDE 0.5 MG CAP (FP) PO SCH (09:33)
[2016-10-07] MEDS: HEPARIN NA (PORCINE) 5,000 UNITS/ML 1ML VIAL SQ SCH ×2 (09:33→21:33)
[2016-10-08] MEDS: PIPERACILLIN/TAZOB 3.375 GM/50 ML PRE-DOCKED IVPB SCH ×3 (01:20→18:01)
[2016-10-08 07:53] LABS: BASOPHIL 0.7 % (0-2.0); EOSINOPHIL 2.6 % (0-4.5); MCH 30.4 pg (25.7-33.7); MEAN CELL VOLUME 89.4 fl (80-96); NEUTROPHILS 71.2 % (42.8-82.8); PLATELET COUNT 490 K/MM3 (134-434); RDW 14.6 % (11.9-15.9)
[2016-10-08 08:28] LABS: ANION GAP 8 (8-16); CALCIUM 7.8 mg/dL (8.5-10.1); CO2 27 mmol/L (21-32)
[2016-10-08 08:33] LABS: ALBUMIN 1.7 g/dl (3.4-5.0); ALK PHOS 66 U/L (45-117); BILIRUBIN,TOTAL 0.4 mg/dL (0.2-1.0); COCKROFT - GAULT 79; CREATININE 0.6 mg/dL (0.7-1.3); GLUCOSE,RANDOM 88 mg/dL (74-106); MAGNESIUM 1.7 mg/dL (1.8-2.4); SGOT/AST 35 U/L (15-37); SGPT/ALT 17 U/L (12-78)
--- NOTE | 2016-10-08 08:43 | PN ---
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 (short form) - Note 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: Patient seen and examined. Chart reviewed. Post TURP, with Elam catheter removed this AM Still confused but in no acute distress, lying supine in bed. Labs, operative notes and business solutions consultant notes reviewed. Feet examined with nurse. Selected Entries 10/07/16 10/08/16 21:00 06:00 Temperature 98.2 F Pulse Rate 78 Respiratory 20 Rate Blood Pressure 117/64 O2 Sat by Pulse 95 Oximetry (%) Oxygen Delivery Room Air Method Laboratory Tests 10/08/16 07:00 WBC 7.0 Hgb 9.4 L Hct 27.6 L Plt Count 490 H CMP pending Chest Clear Cor RRR Abd Soft No tenderness No mass Elam catheter removed Ext No edema No phlebitis Contractures Feet with protective bandages Open area on right lateral foot with some blood seeping out from blistered area Two open areas on left lateral foot appear clean. Neuro No new focal deficits Confusion Assessment and Plan Post TURP for obstructive uropathy F/C removed this AM Hematuria As above UTI with "urosepsis" and septic shock Improved On Zosyn Parkinsonism On Rx H/O femur fracture Dementia with toxic/metabolic encephalopathy On antibiotics Hypoalbuminemia Likely related to acute/chronic disease as well as nutritional factors Corrected Calcium 9.12 10/07/16 Anemia 9.2/27.0>>9.4/27.6 Monitor Open areas of pressure sores on feet Continue protective dressing and monitor closely Continue current Rx as outlined
[2016-10-08] MEDS: TAMSULOSIN HCL 0.4 MG CAP.ER.24H (FP) PO SCH (09:38)
[2016-10-08] MEDS: SOLIFENACIN SUCCINATE 5 MG TAB (FP) PO SCH (09:38)
[2016-10-08] MEDS: CARBIDOPA/LEVODOPA 25/100 TABLET (FP) PO SCH ×4 (09:38→21:01)
[2016-10-08] MEDS: DUTASTERIDE 0.5 MG CAP (FP) PO SCH (09:38)
[2016-10-08] MEDS: HEPARIN NA (PORCINE) 5,000 UNITS/ML 1ML VIAL SQ SCH ×2 (09:39→21:01)
--- NOTE | 2016-10-08 12:53 | PN ---
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 (short form) - Note 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: NAD more alert but confused poor appetite Vital Signs Period Temp Pulse Resp BP Sys/Walker Pulse Ox Last 24 Hr 98.2 F-99.6 F 75-97 18-20 96-117/48-64 95-97 cor-rrr lungs decreased bs at bases abd soft,nt ext bilateral pedal edema CBC, BMP 10/08/16 07:00 10/08/16 07:00 Microbiology 10/05/16 10:15 Blood - Peripheral Venous Blood Culture - Preliminary NO GROWTH OBTAINED AFTER 72 HOURS, INCUBATION TO CONTINUE FOR 2 DAYS. 10/05/16 10:20 Blood - Peripheral Venous Blood Culture - Preliminary NO GROWTH OBTAINED AFTER 72 HOURS, INCUBATION TO CONTINUE FOR 2 DAYS. 10/05/16 16:00 Urine - Urine Ochoa Urine Culture - Final Pseudomonas Aeruginosa Current Medications Acetaminophen (Tylenol -) 650 mg PO Q8H PRN PRN Reason: FEVER OR PAIN Last Admin: 10/05/16 21:41 Dose: 650 mg Carbidopa/Levodopa (Sinemet 25/100 -) 1 each PO QID [facility] Last Admin: 10/08/16 09:38 Dose: 1 each Dutasteride (Avodart -) 0.5 mg PO DAILY [facility] Last Admin: 10/08/16 09:38 Dose: 0.5 mg Heparin Sodium (Porcine) (Heparin -) 5,000 unit SQ BID [facility] Last Admin: 10/08/16 09:39 Dose: 5,000 unit Dextrose/Sodium Chloride (D5-Ns -) 1,000 mls @ 75 mls/hr IV ASDIR [facility] Last Admin: 10/07/16 17:30 Dose: Not Given Piperacillin Sod/Tazobactam Sod (Zosyn 3.375gm Ivpb (Pre-Docked)) 3.375 gm IVPB Q8H-IV [facility] Last Admin: 10/08/16 09:38 Dose: 3.375 gm Solifenacin (Vesicare -) 10 mg PO DAILY [facility] Last Admin: 10/08/16 09:38 Dose: 10 mg Tamsulosin HCl (Flomax -) 0.4 mg PO DAILY@0830 [facility] Last Admin: 10/08/16 09:38 Dose: 0.4 mg cxray rotated a/p POD #6 sepsis-pseudomonas UTI continue zosyn, parkinsons disease s/p femur fracture ochoa d/kieran
[2016-10-08] MEDS: DEXTROSE 5%-NORMAL SALINE 1,000 ML IV SCH (15:25)
[2016-10-09] MEDS: PIPERACILLIN/TAZOB 3.375 GM/50 ML PRE-DOCKED IVPB SCH (01:55)
[2016-10-09] MEDS: DEXTROSE 5%-NORMAL SALINE 1,000 ML IV SCH ×2 (01:56→18:34)
[2016-10-09] MEDS: ACETAMINOPHEN 325 MG TABLET (FP) PO PRN (06:24)
[2016-10-09] MEDS: SOLIFENACIN SUCCINATE 5 MG TAB (FP) PO SCH (11:21)
[2016-10-09] MEDS: CARBIDOPA/LEVODOPA 25/100 TABLET (FP) PO SCH ×4 (11:21→22:40)
[2016-10-09] MEDS: DUTASTERIDE 0.5 MG CAP (FP) PO SCH (11:21)
[2016-10-09] MEDS: TAMSULOSIN HCL 0.4 MG CAP.ER.24H (FP) PO SCH (11:22)
[2016-10-09] MEDS: HEPARIN NA (PORCINE) 5,000 UNITS/ML 1ML VIAL SQ SCH ×2 (11:22→22:40)
--- NOTE | 2016-10-09 15:08 | PN ---
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, Physician Chief Complaint: Unable to obtain today, patient arousable but mumbling - Current Medication List Current Medications: Active Medications Acetaminophen (Tylenol -) 650 mg PO Q8H PRN PRN Reason: FEVER OR PAIN Last Admin: 10/09/16 06:24 Dose: 650 mg Carbidopa/Levodopa (Sinemet 25/100 -) 1 each PO QID [facility] Last Admin: 10/09/16 14:32 Dose: 1 each Dutasteride (Avodart -) 0.5 mg PO DAILY [facility] Last Admin: 10/09/16 11:21 Dose: 0.5 mg Heparin Sodium (Porcine) (Heparin -) 5,000 unit SQ BID [facility] Last Admin: 10/09/16 11:22 Dose: 5,000 unit Dextrose/Sodium Chloride (D5-Ns -) 1,000 mls @ 75 mls/hr IV ASDIR [facility] Last Admin: 10/09/16 01:56 Dose: 75 mls/hr Solifenacin (Vesicare -) 10 mg PO DAILY [facility] Last Admin: 10/09/16 11:21 Dose: 10 mg Tamsulosin HCl (Flomax -) 0.4 mg PO DAILY@0830 [facility] Last Admin: 10/09/16 11:22 Dose: 0.4 mg - Objective Vital Signs: Vital Signs Temperature 101.4 F H 10/09/16 07:47 Pulse Rate 76 10/09/16 07:47 Respiratory Rate 20 10/09/16 07:47 Blood Pressure 97/54 10/09/16 07:47 O2 Sat by Pulse Oximetry (%) 97 10/08/16 21:00 Constitutional: Yes: No Distress, Calm, Thin Cardiovascular: Yes: Regular Rate and Rhythm. No: Gallop, Murmur, Rub Respiratory: Yes: Regular, CTA Bilaterally. No: Rales, Rhonchi, Wheezes Gastrointestinal: Yes: Normal Bowel Sounds, Soft. No: Distention, Tenderness Extremities: Yes: WNL Edema: No Labs: CBC, BMP 10/08/16 07:00 10/08/16 07:00 INR, PTT INR 1.36 (0.82-1.09) H 09/30/16 06:00 Problem List - Problems (1) Septic shock Code(s): A41.9 - SEPSIS, UNSPECIFIED ORGANISM R65.21 - SEVERE SEPSIS WITH SEPTIC SHOCK (2) UTI (urinary tract infection) Code(s): N39.0 - URINARY TRACT INFECTION, SITE NOT SPECIFIED Qualifiers: Urinary tract infection type: acute cystitis Hematuria presence: with hematuria Qualified Code(s): N30.01 - Acute cystitis with hematuria (3) Acute metabolic encephalopathy Code(s): G93.41 - METABOLIC ENCEPHALOPATHY (4) Urinary retention Code(s): R33.9 - RETENTION OF URINE, UNSPECIFIED (5) Hematuria Code(s): R31.9 - HEMATURIA, UNSPECIFIED (6) Parkinson disease Code(s): G20 - PARKINSON'S DISEASE Assessment/Plan (1) Septic shock -resolved, however today patient is febrile -ID following and managing antibiotics -zosyn discontinued, currently off antibiotics -ochoa also removed, monitor for retention as became febrile while retaining urine -monitor -will check urinalysis, cultures, chest x-ray (2) UTI (urinary tract infection) Assessment/Plan: -appreciate ID assistance -zosyn discontinued -no leukocytosis but having fevers Code(s): N39.0 - URINARY TRACT INFECTION, SITE NOT SPECIFIED Qualifiers: Urinary tract infection type: acute cystitis Hematuria presence: with hematuria Qualified Code(s): N30.01 - Acute cystitis with hematuria (3) Acute metabolic encephalopathy Assessment/Plan: -more lethargic today -as above Code(s): G93.41 - METABOLIC ENCEPHALOPATHY (4) Urinary retention Assessment/Plan: -patient s/p cystoscopy and TURP -ochoa removed Code(s): R33.9 - RETENTION OF URINE, UNSPECIFIED (5) Hematuria Assessment/Plan: -resolved -urology following Code(s): R31.9 - HEMATURIA, UNSPECIFIED (6) Parkinson disease Assessment/Plan: -appreciate neurology assistance -continue sinemet Code(s): G20 - PARKINSON'S DISEASE
[2016-10-09 20:06] LABS: URINE APPEARANCE CLEAR; URINE BILIRUBIN NEGATIVE (NEGATIVE); URINE COLOR LTYELLOW; URINE GLUCOSE (UA) NEGATIVE (NEGATIVE); URINE KETONE NEGATIVE (NEGATIVE); URINE NITRITE NEGATIVE (NEGATIVE); URINE UROBILINOGEN NEGATIVE E.U./dl (0.2-1.0)
[2016-10-09 20:12] LABS: URINE BLOOD 2+ (NEGATIVE); URINE LEUK ESTERASE TRACE (NEGATIVE); URINE PROTEIN 1+ (NEGATIVE)
[2016-10-09 20:14] LABS: URINE MUCUS RARE; URINE RBC 54 /hpf (0-3); URINE WBC 15 /hpf (3-5)
[2016-10-10] MEDS: DEXTROSE 5%-NORMAL SALINE 1,000 ML IV SCH ×2 (04:45→17:48)
--- NOTE | 2016-10-10 08:15 | PN ---
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 (short form) - Note 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: PATIENT LETHARGIC BUT RESPONSIVE. OFF ANTIBIOTICS FOR PSEUDOMONAS UTI . NO APPARENT RESP / CARDIAC DISTRESS. CXR FROM <> NO INFILTRATE. Laboratory Tests Selected Entries Selected Entries 10/10/16 07:18 Temperature 99.7 F H Pulse Rate 72 Respiratory 20 Rate Blood Pressure 112/62 Laboratory Tests 10/08/16 10/08/16 07:00 07:00 WBC 7.0 RBC 3.09 L Hgb 9.4 L Hct 27.6 L Plt Count 490 H Sodium 138 Potassium 4.2 Chloride 103 Carbon Dioxide 27 Anion Gap 8 BUN 5 L Creatinine 0.6 L Creat Clearance w eGFR > 60 Random Glucose 88 Calcium 7.8 L Magnesium 1.7 L Total Bilirubin 0.4 AST 35 D ALT 17 D Alkaline Phosphatase 66 Total Protein 5.0 L Albumin 1.7 L Laboratory Tests P/E AROUSABLE / LETHARGIC. HEENT <> ++ MASKED FACIES OF PARKINSON'S COR <> S 1 S 2 HS DISTANCE CHEST <> DECREASED BS AT BASES / FEW SCATTERED RHONCHI ABD <>SOFT / NONTENDER EXT <> CONTRACTED LE / HEEL BANDAGE IN PLACE IMP : PSEUDOMONAS UTI SEPSIS / RESOLVED PARKINSON'S. BPH WITH OUTLET OBSTRUCTION / PRIOR HY OF PROSTATE CA GLEASONS 6 . FEMUR FX DEMENTIA PLAN :REMAIN OFF ANTIBIOTICS I.D. FOLLOW LABS.
[2016-10-10 08:25] LABS: BASOPHIL 0.9 % (0-2.0); EOSINOPHIL 3.3 % (0-4.5); MCH 30.5 pg (25.7-33.7); MCHC 33.7 g/dl (32.0-35.9); MEAN CELL VOLUME 90.4 fl (80-96); NEUTROPHILS 68.5 % (42.8-82.8); PLATELET COUNT 553 K/MM3 (134-434); RDW 15.1 % (11.9-15.9); WHITE BLOOD COUNT 7.6 K/mm3 (4.0-10.0)
[2016-10-10 08:50] LABS: CALCIUM 8.2 mg/dL (8.5-10.1); COCKROFT - GAULT 76.45; CREATININE 0.6 mg/dL (0.7-1.3); MAGNESIUM 1.9 mg/dL (1.8-2.4); PHOSPHOROUS 3.2 mg/dL (2.5-4.9)
[2016-10-10] MEDS: HEPARIN NA (PORCINE) 5,000 UNITS/ML 1ML VIAL SQ SCH ×2 (10:02→22:56)
[2016-10-10] MEDS: CARBIDOPA/LEVODOPA 25/100 TABLET (FP) PO SCH ×4 (10:02→22:57)
[2016-10-10] MEDS: TAMSULOSIN HCL 0.4 MG CAP.ER.24H (FP) PO SCH (10:02)
[2016-10-10] MEDS: SOLIFENACIN SUCCINATE 5 MG TAB (FP) PO SCH (10:02)
[2016-10-10] MEDS: DUTASTERIDE 0.5 MG CAP (FP) PO SCH (10:02)
[2016-10-11] MEDS: DEXTROSE 5%-NORMAL SALINE 1,000 ML IV SCH ×3 (06:01→20:39)
[2016-10-11] MEDS: TAMSULOSIN HCL 0.4 MG CAP.ER.24H (FP) PO SCH (10:40)
[2016-10-11] MEDS: SOLIFENACIN SUCCINATE 5 MG TAB (FP) PO SCH (10:53)
[2016-10-11] MEDS: DUTASTERIDE 0.5 MG CAP (FP) PO SCH (10:53)
[2016-10-11] MEDS: CARBIDOPA/LEVODOPA 25/100 TABLET (FP) PO SCH ×4 (10:53→21:30)
[2016-10-11] MEDS: ACETAMINOPHEN 325 MG TABLET (FP) PO PRN (10:54)
[2016-10-11] MEDS: HEPARIN NA (PORCINE) 5,000 UNITS/ML 1ML VIAL SQ SCH (10:54)
--- NOTE | 2016-10-11 11:38 | PN ---
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, Physician Chief Complaint: Unable to obtain today, patient arousable but mumbling. RN says having fevers and hypotension again - Current Medication List Current Medications: Active Medications Acetaminophen (Tylenol -) 650 mg PO Q8H PRN PRN Reason: FEVER OR PAIN Last Admin: 10/11/16 10:54 Dose: 650 mg Carbidopa/Levodopa (Sinemet 25/100 -) 1 each PO QID [facility] Last Admin: 10/11/16 10:53 Dose: 1 each Dutasteride (Avodart -) 0.5 mg PO DAILY [facility] Last Admin: 10/11/16 10:53 Dose: 0.5 mg Heparin Sodium (Porcine) (Heparin -) 5,000 unit SQ BID [facility] Last Admin: 10/11/16 10:54 Dose: 5,000 unit Dextrose/Sodium Chloride (D5-Ns -) 1,000 mls @ 75 mls/hr IV ASDIR [facility] Last Admin: 10/11/16 06:01 Dose: 75 mls/hr Solifenacin (Vesicare -) 10 mg PO DAILY [facility] Last Admin: 10/11/16 10:53 Dose: 10 mg Tamsulosin HCl (Flomax -) 0.4 mg PO DAILY@0830 [facility] Last Admin: 10/11/16 10:40 Dose: 0.4 mg - Objective Vital Signs: Vital Signs Temperature 99.9 F H 10/11/16 06:57 Pulse Rate 78 10/11/16 06:57 Respiratory Rate 20 10/11/16 06:57 Blood Pressure 112/52 10/11/16 06:57 O2 Sat by Pulse Oximetry (%) 97 10/10/16 21:00 Constitutional: Yes: No Distress, Calm, Thin Cardiovascular: Yes: Regular Rate and Rhythm. No: Gallop, Murmur, Rub Respiratory: Yes: Regular, CTA Bilaterally. No: Rales, Rhonchi, Wheezes Extremities: Yes: WNL Edema: No Labs: CBC, BMP 10/10/16 06:30 10/10/16 06:30 INR, PTT INR 1.36 (0.82-1.09) H 09/30/16 06:00 Problem List - Problems (1) Septic shock Code(s): A41.9 - SEPSIS, UNSPECIFIED ORGANISM R65.21 - SEVERE SEPSIS WITH SEPTIC SHOCK (2) UTI (urinary tract infection) Code(s): N39.0 - URINARY TRACT INFECTION, SITE NOT SPECIFIED Qualifiers: Urinary tract infection type: acute cystitis Hematuria presence: with hematuria Qualified Code(s): N30.01 - Acute cystitis with hematuria (3) Acute metabolic encephalopathy Code(s): G93.41 - METABOLIC ENCEPHALOPATHY (4) Urinary retention Code(s): R33.9 - RETENTION OF URINE, UNSPECIFIED (5) Hematuria Code(s): R31.9 - HEMATURIA, UNSPECIFIED (6) Parkinson disease Code(s): G20 - PARKINSON'S DISEASE Assessment/Plan (1) Septic shock -unclear source -? secondary to aspiration, asked speech therapy to see -RN noted foul smelling wound, sent for culture -ID to evaluate if needs continued antibiotics (2) UTI (urinary tract infection) Assessment/Plan: -appreciate ID assistance -zosyn discontinued -no leukocytosis but having fevers Code(s): N39.0 - URINARY TRACT INFECTION, SITE NOT SPECIFIED Qualifiers: Urinary tract infection type: acute cystitis Hematuria presence: with hematuria Qualified Code(s): N30.01 - Acute cystitis with hematuria (3) Acute metabolic encephalopathy Assessment/Plan: -lethargy unchanged Code(s): G93.41 - METABOLIC ENCEPHALOPATHY (4) Urinary retention Assessment/Plan: -patient s/p cystoscopy and TURP -ochoa removed Code(s): R33.9 - RETENTION OF URINE, UNSPECIFIED (5) Hematuria Assessment/Plan: -resolved -urology following Code(s): R31.9 - HEMATURIA, UNSPECIFIED (6) Parkinson disease Assessment/Plan: -appreciate neurology assistance -continue sinemet Code(s): G20 - PARKINSON'S DISEASE
--- NOTE | 2016-10-11 12:44 | PN ---
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, [employer] - Note 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: Asked by PMD to re-evaluate pt. Selected Entries 10/09/16 10/09/16 10/09/16 07:47 10:00 16:30 Breakfast 25% Lunch 25% Supper Temperature 101.4 F H 98.4 F 10/09/16 10/09/16 10/10/16 19:00 22:00 07:18 Breakfast Lunch Supper 50% Temperature 98.0 F 99.7 F H 10/10/16 10/10/16 10/10/16 10:00 11:49 15:44 Breakfast 25% Lunch 25% Supper Temperature 99.0 F 98.4 F 10/10/16 10/10/16 10/11/16 18:59 22:00 06:57 Breakfast Lunch Supper Temperature 98.1 F 98.2 F 99.9 F H 10/11/16 12:36 Breakfast 25% Lunch Supper Temperature This am, temperature was 103, per RN. Pt is a full code. Sleepy,confused, high distractibility but arousable. Took marty pudding lunch time. Educated staff on cueing pt to "drink....swallow. " Pt accepted single sips of ensure well with verbal cues. Swallow is brisk. No cough/congestion with trials. Pt may accept puree mixed with soup or ensure, to drink meals. Risk of aspiration due to delayed swallow, but doubt this is cause of fevers. Poor PO acceptance previously. CXR (-) What are pt's wishes regarding TF to supplement PO intake? Pt is a full code.
[2016-10-11] MEDS ORDERED: ACETAMINOPHEN 650 MG SUPP.RECT PR ONE (17:12)
[2016-10-11] MEDS ORDERED: TOBRAMYCIN SULFATE 120 MG in SODIUM CHLORIDE 100 ML IVPB ONE (17:13)
--- NOTE | 2016-10-11 17:24 | PN ---
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 (short form) - Note 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: NAD antibiotics d/kieran 2 days ago now with fever to 103 nurse noted small necrotic ulcer with abscess on right foot he is resting comfortably poor appetite NAD contracted Vital Signs Period Temp Pulse Resp BP Sys/Walker Pulse Ox Last 24 Hr 98.1 F-103.5 F 71-84 20-20 87-118/46-61 97 cor-rrr lungs clear abd soft,nt ext pedal edema, multiple small ulcers on her feet, small ulcer has been drained ochoa CBC, BMP 10/10/16 06:30 10/10/16 06:30 Microbiology 10/09/16 16:43 Blood - Peripheral Venous Blood Culture - Preliminary NO GROWTH OBTAINED AFTER 48 HOURS, INCUBATION TO CONTINUE FOR 3 DAYS. 10/09/16 16:43 Blood - Peripheral Venous Blood Culture - Preliminary NO GROWTH OBTAINED AFTER 48 HOURS, INCUBATION TO CONTINUE FOR 3 DAYS. 10/09/16 19:57 Urine - Urine Ochoa Urine Culture - Final NO GROWTH OBTAINED 10/05/16 10:15 Blood - Peripheral Venous Blood Culture - Final NO GROWTH AFTER 5 DAYS INCUBATION 10/05/16 10:20 Blood - Peripheral Venous Blood Culture - Final NO GROWTH AFTER 5 DAYS INCUBATION 10/05/16 16:00 Urine - Urine Ochoa Urine Culture - Final Pseudomonas Aeruginosa 09/22/16 16:54 Urine - Urine Ochoa Urine Culture - Final Alpha Hemolytic Streptococcus 09/26/16 13:25 Blood - Peripheral Venous Blood Culture - Final NO GROWTH AFTER 5 DAYS INCUBATION 09/26/16 13:20 Blood - Peripheral Venous Blood Culture - Final NO GROWTH AFTER 5 DAYS INCUBATION 09/29/16 09:30 Urine - Urine Ochoa Urine Culture - Final NO GROWTH OBTAINED 09/22/16 19:12 Blood - Peripheral Venous Blood Culture - Final NO GROWTH AFTER 5 DAYS INCUBATION 09/22/16 19:12 Blood - Peripheral Venous Blood Culture - Final NO GROWTH AFTER 5 DAYS INCUBATION cxray ordered a/p fevers to 103- ?infected ulcer reculture, cxray vanco/gent/zosyn f/u cultures overall prognosis is poor parkinsons disease s/p femur fracture-doing poorly
[2016-10-11] MEDS ORDERED: GENTAMICIN INJECTION 120 MG in SODIUM CHLORIDE 100 ML IVPB ONE (17:45)
[2016-10-11 19:58] LABS: URINE APPEARANCE CLEAR; URINE BILIRUBIN NEGATIVE (NEGATIVE); URINE COLOR LTYELLOW; URINE GLUCOSE (UA) NEGATIVE (NEGATIVE); URINE KETONE NEGATIVE (NEGATIVE); URINE NITRITE POSITIVE (NEGATIVE); URINE PROTEIN NEGATIVE (NEGATIVE); URINE UROBILINOGEN NEGATIVE E.U./dl (0.2-1.0)
[2016-10-11] MEDS ORDERED: PT OWN MED DRAWER 7, Y5N ONE (20:17)
[2016-10-11 20:27] LABS: URINE BLOOD 1+ (NEGATIVE); URINE LEUK ESTERASE 1+ (NEGATIVE)
[2016-10-11 20:30] LABS: URINE MUCUS MANY; URINE RBC 10 /hpf (0-3); URINE WBC 43 /hpf (3-5)
[2016-10-11] MEDS: PIPERACILLIN/TAZOB 3.375 GM/50 ML PRE-DOCKED IVPB SCH (20:30)
[2016-10-11] MEDS: VANCOMYCIN 1 GRAM (PRE-DOCKED) 1,000 MG/250 ML BAG IVPB SCH (20:40)
[2016-10-11] MEDS: ACETAMINOPHEN 650 MG SUPP.RECT PR PRN (23:00)
[2016-10-12] MEDS: PIPERACILLIN/TAZOB 3.375 GM/50 ML PRE-DOCKED IVPB SCH ×3 (01:50→17:15)
[2016-10-12 08:17] LABS: BASOPHIL 0.7 % (0-2.0); EOSINOPHIL 1.2 % (0-4.5); MCHC 33.1 g/dl (32.0-35.9); MEAN CELL VOLUME 90.6 fl (80-96); MEAN PLT VOLUME 7.8 fl (7.5-11.1); NEUTROPHILS 82.1 % (42.8-82.8); PLATELET COUNT 525 K/MM3 (134-434); WHITE BLOOD COUNT 11.2 K/mm3 (4.0-10.0)
[2016-10-12 08:44] LABS: CALCIUM 8.1 mg/dL (8.5-10.1); COCKROFT - GAULT 77.05; CREATININE 0.6 mg/dL (0.7-1.3); PHOSPHOROUS 3.2 mg/dL (2.5-4.9)
[2016-10-12] MEDS: CARBIDOPA/LEVODOPA 25/100 TABLET (FP) PO SCH ×4 (09:35→22:35)
[2016-10-12] MEDS: TAMSULOSIN HCL 0.4 MG CAP.ER.24H (FP) PO SCH (09:36)
[2016-10-12] MEDS: SOLIFENACIN SUCCINATE 5 MG TAB (FP) PO SCH (09:36)
[2016-10-12] MEDS: DUTASTERIDE 0.5 MG CAP (FP) PO SCH (09:36)
--- NOTE | 2016-10-12 13:23 | PN ---
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, Physician History of Present Illness: Not verbally responsive Temps down- low grade No acute distress Cultures pending - Current Medication List Current Medications: Active Medications Acetaminophen (Tylenol -) 650 mg PO Q8H PRN PRN Reason: FEVER OR PAIN Last Admin: 10/11/16 10:54 Dose: 650 mg Acetaminophen (Tylenol Suppository -) 650 mg [place] Q6H PRN PRN Reason: FEVER OR PAIN Last Admin: 10/11/16 23:00 Dose: 650 mg Carbidopa/Levodopa (Sinemet 25/100 -) 1 each PO QID [facility] Last Admin: 10/12/16 09:35 Dose: 1 each Dutasteride (Avodart -) 0.5 mg PO DAILY [facility] Last Admin: 10/12/16 09:36 Dose: 0.5 mg Dextrose/Sodium Chloride (D5-Ns -) 1,000 mls @ 75 mls/hr IV ASDIR [facility] Last Admin: 10/11/16 20:39 Dose: 75 mls/hr Piperacillin Sod/Tazobactam Sod (Zosyn 3.375gm Ivpb (Pre-Docked)) 3.375 gm IVPB Q8H-IV [facility] PRN Reason: Protocol Last Admin: 10/12/16 09:35 Dose: 3.375 gm Solifenacin (Vesicare -) 10 mg PO DAILY [facility] Last Admin: 10/12/16 09:36 Dose: 10 mg Tamsulosin HCl (Flomax -) 0.4 mg PO DAILY@0830 [facility] Last Admin: 10/12/16 09:36 Dose: 0.4 mg Vancomycin HCl (Vancomycin (Pre-Docked)) 1,000 mg IVPB DAILY@1800 [facility] PRN Reason: Protocol Last Admin: 10/11/16 20:40 Dose: 1,000 mg - Objective Vital Signs: Vital Signs Temperature 99.2 F 10/12/16 09:00 Pulse Rate 70 10/12/16 09:00 Respiratory Rate 20 10/12/16 09:00 Blood Pressure 88/74 10/12/16 09:00 O2 Sat by Pulse Oximetry (%) 98 10/12/16 09:00 Constitutional: Yes: No Distress Eyes: Yes: Conjunctiva Clear Cardiovascular: Yes: Regular Rate and Rhythm, S1, S2 Respiratory: Yes: Diminished Gastrointestinal: Yes: Normal Bowel Sounds, Soft. No: Tenderness Extremities: Yes: Other (+ contractures) Labs: CBC, BMP 10/12/16 07:00 10/12/16 07:00 INR, PTT INR 1.36 (0.82-1.09) H 09/30/16 06:00 Assessment/Plan Sepsis , possible skin source Leukocytosis Femur fracture Parkinsonism Hx Pseudomonas UTI Continue empiric zosyn/ vancomycin pending sepsis workup
--- NOTE | 2016-10-12 13:35 | PN ---
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 (short form) - Note 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: Patient remained at his base line, non Verbal non communicative on IV abx for UTI Last Vital Signs Temp Pulse Resp BP Pulse Ox 99.2 F 70 20 88/74 98 10/12/16 09:00 10/12/16 09:00 10/12/16 09:00 10/12/16 09:00 10/12/16 09:00 Elderly man contractured, non Verbal HEENT: Mm moist no anemia, PERRLA, EOMI NECK: No JVd No Bruit CHEST: CTA B/L CVS; S1S2 R ABD: No distention non tender Bs + EXT: No edema feet, no calf tenderness LEGAL DOCUMENT SPECIALIST: limited, non verbal contractured; LABS: CBC, BMP 10/12/16 07:00 10/12/16 07:00 Microbiology Microbiology 10/09/16 16:43 Blood Culture - Preliminary Blood - Peripheral Venous NO GROWTH OBTAINED AFTER 48 HOURS, INCUBATION TO CONTINUE FOR 3 DAYS. 10/09/16 16:43 Blood Culture - Preliminary Blood - Peripheral Venous NO GROWTH OBTAINED AFTER 48 HOURS, INCUBATION TO CONTINUE FOR 3 DAYS. 10/09/16 19:57 Urine Culture - Final Urine - Urine Ochoa NO GROWTH OBTAINED Active Medications Generic Name Dose Route Start Last Admin Trade Name Freq PRN Reason Stop Dose Admin Acetaminophen 650 mg 09/28/16 23:53 10/11/16 10:54 Tylenol - PO 650 mg Q8H PRN Administration FEVER OR PAIN Acetaminophen 650 mg 10/11/16 17:16 10/11/16 23:00 Tylenol Suppository - OK 650 mg Q6H PRN Administration FEVER OR PAIN Carbidopa/Levodopa 1 each 09/27/16 18:00 10/12/16 09:35 Sinemet 25/100 - PO 1 each QID SHADI Administration Dutasteride 0.5 mg 09/28/16 10:00 10/12/16 09:36 Avodart - PO 0.5 mg DAILY [facility] Administration Dextrose/Sodium Chloride 1,000 mls @ 75 mls/hr 09/27/16 15:42 10/11/16 20:39 D5-Ns - IV 75 mls/hr ASDIR [facility] Administration Piperacillin Sod/Tazobactam Sod 3.375 gm 10/11/16 18:00 10/12/16 09:35 Zosyn 3.375gm Ivpb (Pre-Docked) IVPB 3.375 gm Q8H-IV [facility] Administration Protocol Solifenacin 10 mg 10/03/16 10:00 10/12/16 09:36 Vesicare - PO 10 mg DAILY [facility] Administration Tamsulosin HCl 0.4 mg 10/05/16 08:30 10/12/16 09:36 Flomax - PO 0.4 mg DAILY@0830 [facility] Administration Vancomycin HCl 1,000 mg 10/11/16 18:00 10/11/16 20:40 Vancomycin (Pre-Docked) IVPB 1,000 mg DAILY@1800 [facility] Administration Protocol A/Plan; 81 yrs ild NH reident admitted with UTI with sepsis treated, undewent TURP, redevloped UTI now on IV Zosyn and Vancomycine; 1) Septic shock On admission now resolved (2) UTI (urinary tract infection) Post OP UTI now on Zosyn and Vanco (3) Acute metabolic encephalopathy -lethargy unchanged Code(s): G93.41 - METABOLIC ENCEPHALOPATHY (4) Urinary retention Assessment/Plan: s/p cystoscopy and TURP, ochoa removed Code(s): R33.9 - RETENTION OF URINE, UNSPECIFIED (5) Hematuria Assessment/Plan: -resolved -urology following Code(s): R31.9 - HEMATURIA, UNSPECIFIED (6) Parkinson disease Assessment/Plan: -appreciate neurology assistance On Carbidpa Disposition to [place] .
[2016-10-12] MEDS ORDERED: SODIUM CHLORIDE 0.9% 1000 ML INFUS.BAG IV ONE (13:47)
[2016-10-12] MEDS: ACETAMINOPHEN 650 MG SUPP.RECT PR PRN (17:41)
[2016-10-12] MEDS: VANCOMYCIN 1 GRAM (PRE-DOCKED) 1,000 MG/250 ML BAG IVPB SCH (17:51)
[2016-10-12] MEDS: DEXTROSE 5%-NORMAL SALINE 1,000 ML IV SCH (17:56)
[2016-10-13] MEDS: PIPERACILLIN/TAZOB 3.375 GM/50 ML PRE-DOCKED IVPB SCH ×3 (02:03→17:48)
[2016-10-13] MEDS: DEXTROSE 5%-NORMAL SALINE 1,000 ML IV SCH (06:18)
[2016-10-13 07:55] LABS: BASOPHIL 0.8 % (0-2.0); EOSINOPHIL 3.8 % (0-4.5); MCH 30.5 pg (25.7-33.7); MCHC 33.8 g/dl (32.0-35.9); MEAN CELL VOLUME 90.2 fl (80-96); MEAN PLT VOLUME 7.8 fl (7.5-11.1); NEUTROPHILS 78.7 % (42.8-82.8); PLATELET COUNT 499 K/MM3 (134-434); RDW 15.2 % (11.9-15.9); WHITE BLOOD COUNT 8.9 K/mm3 (4.0-10.0)
[2016-10-13] MEDS: TAMSULOSIN HCL 0.4 MG CAP.ER.24H (FP) PO SCH (08:37)
[2016-10-13 08:56] LABS: ALBUMIN 1.7 g/dl (3.4-5.0); ALK PHOS 67 U/L (45-117); ANION GAP 9 (8-16); BILIRUBIN,TOTAL 0.4 mg/dL (0.2-1.0); CALCIUM 7.6 mg/dL (8.5-10.1); CO2 26 mmol/L (21-32); COCKROFT - GAULT 107.12; CREATININE 0.5 mg/dL (0.7-1.3); GLUCOSE,RANDOM 92 mg/dL (74-106); SGOT/AST 22 U/L (15-37); SGPT/ALT 13 U/L (12-78); TOT PROT 5.2 g/dl (6.4-8.2)
[2016-10-13] MEDS: CARBIDOPA/LEVODOPA 25/100 TABLET (FP) PO SCH ×4 (09:30→22:15)
[2016-10-13] MEDS: DUTASTERIDE 0.5 MG CAP (FP) PO SCH (09:30)
[2016-10-13] MEDS: SOLIFENACIN SUCCINATE 5 MG TAB (FP) PO SCH (09:30)
--- NOTE | 2016-10-13 14:32 | PN ---
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 (short form) - Note 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: NAD more alert, being fed lunch afebrile today Vital Signs Period Temp Pulse Resp BP Sys/Walker Pulse Ox Last 24 Hr 98.2 F-100.7 F 70-78 18-20 83-103/37-58 97-97 cor-rrr lungs clear abd soft,nt ext contracted CBC, BMP 10/13/16 06:30 10/13/16 06:30 Microbiology 10/11/16 17:15 Wound Culture - Preliminary Foot - Right Lateral Staphylococcus Coagulase Neg 10/11/16 17:55 Urine Culture - Preliminary Urine - Urine - Catheterized Presumptive Ps Aeruginosa 10/11/16 17:40 Blood Culture - Preliminary Blood - Peripheral Venous NO GROWTH OBTAINED AFTER 24 HOURS, INCUBATION TO CONTINUE FOR 4 DAYS. 10/11/16 17:45 Blood Culture - Preliminary Blood - Peripheral Venous NO GROWTH OBTAINED AFTER 24 HOURS, INCUBATION TO CONTINUE FOR 4 DAYS. 10/09/16 16:43 Blood Culture - Preliminary Blood - Peripheral Venous NO GROWTH OBTAINED AFTER 72 HOURS, INCUBATION TO CONTINUE FOR 2 DAYS. 10/09/16 16:43 Blood Culture - Preliminary Blood - Peripheral Venous NO GROWTH OBTAINED AFTER 72 HOURS, INCUBATION TO CONTINUE FOR 2 DAYS. cxray clear a/p fevers-resolving pseudomonas UTI f/u culture in am zosyn/gent d/c vancomycin parkinsons disease s/p femur fracture-doing poorly d/w at bedside
[2016-10-13] MEDS: GENTAMICIN INJECTION 120 MG in SODIUM CHLORIDE 100 ML IVPB SCH (15:36)
[2016-10-14] MEDS: PIPERACILLIN/TAZOB 3.375 GM/50 ML PRE-DOCKED IVPB SCH ×3 (02:36→17:36)
--- NOTE | 2016-10-14 07:08 | PN ---
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 (short form) - Note 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: ID Zosyn and Gentamicin day 2 Remain clinically stable Afebrile VSS Selected Entries 10/13/16 23:40 Temperature 98.9 F Pulse Rate 72 Respiratory 20 Rate Blood Pressure 95/56 Microbiology 10/11/16 17:55 Urine - Urine - Catheterized Urine Culture - Preliminary Presumptive Ps Aeruginosa Laboratory Tests 10/13/16 10/13/16 06:30 06:30 WBC 8.9 Hgb 9.0 L Hct 26.7 L Plt Count 499 H BUN 5 L Creatinine 0.5 L Assessment Pseudomonal UTI on therapy/Fever Plan Sensitivities pending Continue current antibiotic Check Gent level Suman KELLEY Problem List - Problems (1) UTI (urinary tract infection) Code(s): N39.0 - URINARY TRACT INFECTION, SITE NOT SPECIFIED Qualifiers: Urinary tract infection type: acute cystitis Hematuria presence: with hematuria Qualified Code(s): N30.01 - Acute cystitis with hematuria (2) Urinary retention Code(s): R33.9 - RETENTION OF URINE, UNSPECIFIED (3) Multiple drug resistant organism (MDRO) culture positive Code(s): Z16.24 - RESISTANCE TO MULTIPLE ANTIBIOTICS
[2016-10-14] MEDS: DEXTROSE 5%-NORMAL SALINE 1,000 ML IV SCH ×2 (08:27→17:36)
[2016-10-14] MEDS: TAMSULOSIN HCL 0.4 MG CAP.ER.24H (FP) PO SCH (08:35)
[2016-10-14] MEDS ORDERED: PT OWN MED DRAWER 7, Y5N ONE (10:37)
[2016-10-14] MEDS: SOLIFENACIN SUCCINATE 5 MG TAB (FP) PO SCH (10:42)
[2016-10-14] MEDS: CARBIDOPA/LEVODOPA 25/100 TABLET (FP) PO SCH ×4 (10:42→22:26)
[2016-10-14] MEDS: DUTASTERIDE 0.5 MG CAP (FP) PO SCH (10:42)
--- NOTE | 2016-10-14 11:40 | PN ---
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 (short form) - Note 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: Patient nonverbal. Awake in NAD. No acute events overnight. Intake & Output 10/11/16 10/12/16 10/13/16 10/14/16 23:59 23:59 23:59 23:59 Intake Total 1560 1590 2405 1000 Output Total 1800 1750 2200 1000 Balance -240 -160 205 0 Weight 118 lb 2 oz 120 lb 4.8 oz 139 lb 6 oz Last Vital Signs Temp Pulse Resp BP Pulse Ox 99.5 F 73 20 108/44 99 10/14/16 07:38 10/14/16 07:38 10/14/16 07:38 10/14/16 07:38 10/13/16 21:00 Active Medications Acetaminophen (Tylenol -) 650 mg PO Q8H PRN PRN Reason: FEVER OR PAIN Last Admin: 10/11/16 10:54 Dose: 650 mg Acetaminophen (Tylenol Suppository -) 650 mg [place] Q6H PRN PRN Reason: FEVER OR PAIN Last Admin: 10/12/16 17:41 Dose: 650 mg Carbidopa/Levodopa (Sinemet 25/100 -) 1 each PO QID [facility] Last Admin: 10/14/16 10:42 Dose: 1 each Dutasteride (Avodart -) 0.5 mg PO DAILY [facility] Last Admin: 10/14/16 10:42 Dose: 0.5 mg Dextrose/Sodium Chloride (D5-Ns -) 1,000 mls @ 75 mls/hr IV ASDIR [facility] Last Admin: 10/14/16 08:27 Dose: 75 mls/hr Gentamicin Sulfate 120 mg/ (Sodium Chloride) 103 mls @ 100 mls/hr IVPB DAILY [facility] Last Admin: 10/13/16 15:36 Dose: 100 mls/hr Piperacillin Sod/Tazobactam Sod (Zosyn 3.375gm Ivpb (Pre-Docked)) 3.375 gm IVPB Q8H-IV [facility]I PRN Reason: Protocol Last Admin: 10/14/16 10:43 Dose: 3.375 gm Solifenacin (Vesicare -) 10 mg PO DAILY [facility] Last Admin: 10/14/16 10:42 Dose: 10 mg Tamsulosin HCl (Flomax -) 0.4 mg PO DAILY@0830 [facility] Last Admin: 10/14/16 08:35 Dose: 0.4 mg Gen: nonverbal, breathing nonlabored Heart: RRR Lung: decreased breath sounds at the bases Abd: soft, nontender Ext: no edema, contracted Laboratory Results - last 24 hr 10/14/16 08:35 Gentamicin Trough < 0.2 A/P UTI Resolved Septic Shock BPH Parkinson's Disease Dementia Altered Mental Status - ABX per ID - Aspiration precautions - DVT prophylaxis Dr Duncan
[2016-10-14] MEDS: GENTAMICIN INJECTION 120 MG in SODIUM CHLORIDE 100 ML IVPB SCH (11:48)
--- NOTE | 2016-10-14 13:35 | PN ---
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 (short form) - Note 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: No complaints No fever O/E Heart irregular Liungs few rales+ Abd soft Ext b/l +1 edema Decubitus ulcers+ Vital Signs Period Temp Pulse Resp BP Sys/Walker Pulse Ox Last 24 Hr 98.3 F-99.6 F 66-78 18-20 95-120/44-62 99 Current Medications Acetaminophen (Tylenol -) 650 mg PO Q8H PRN PRN Reason: FEVER OR PAIN Last Admin: 10/11/16 10:54 Dose: 650 mg Acetaminophen (Tylenol Suppository -) 650 mg [place] Q6H PRN PRN Reason: FEVER OR PAIN Last Admin: 10/12/16 17:41 Dose: 650 mg Carbidopa/Levodopa (Sinemet 25/100 -) 1 each PO QID [facility] Last Admin: 10/14/16 10:42 Dose: 1 each Dutasteride (Avodart -) 0.5 mg PO DAILY [facility] Last Admin: 10/14/16 10:42 Dose: 0.5 mg Dextrose/Sodium Chloride (D5-Ns -) 1,000 mls @ 75 mls/hr IV ASDIR [facility] Last Admin: 10/14/16 08:27 Dose: 75 mls/hr Gentamicin Sulfate 120 mg/ (Sodium Chloride) 103 mls @ 100 mls/hr IVPB DAILY [facility] Last Admin: 10/14/16 11:48 Dose: 100 mls/hr Piperacillin Sod/Tazobactam Sod (Zosyn 3.375gm Ivpb (Pre-Docked)) 3.375 gm IVPB Q8H-IV [facility]ADI PRN Reason: Protocol Last Admin: 10/14/16 10:43 Dose: 3.375 gm Solifenacin (Vesicare -) 10 mg PO DAILY [facility] Last Admin: 10/14/16 10:42 Dose: 10 mg Tamsulosin HCl (Flomax -) 0.4 mg PO DAILY@0830 [facility] Last Admin: 10/14/16 08:35 Dose: 0.4 mg Laboratory Results - last 24 hr 10/14/16 08:35 Gentamicin Trough < 0.2 A&P Assessment/Plan (1) Septic shock -unclear source -Cont ABX (2) UTI (urinary tract infection) Assessment/Plan: afebrile Code(s): N39.0 - URINARY TRACT INFECTION, SITE NOT SPECIFIED Qualifiers: Urinary tract infection type: acute cystitis Hematuria presence: with hematuria Qualified Code(s): N30.01 - Acute cystitis with hematuria (3) Acute metabolic encephalopathy Assessment/Plan: -lethargy improved Code(s): G93.41 - METABOLIC ENCEPHALOPATHY (4) Urinary retention Assessment/Plan: -patient s/p cystoscopy and TURP Code(s): R33.9 - RETENTION OF URINE, UNSPECIFIED (5) Hematuria Assessment/Plan: -resolved Code(s): R31.9 - HEMATURIA, UNSPECIFIED (6) Parkinson disease Assessment/Plan: -appreciate neurology assistance -continue sinemet Code(s): G20 - PARKINSON'S DISEASE
[2016-10-14] MEDS: ACETAMINOPHEN 325 MG TABLET (FP) PO PRN (16:49)
[2016-10-14] MEDS: SODIUM CHLORIDE 1,000 ML IV SCH (20:51)
[2016-10-15] MEDS: PIPERACILLIN/TAZOB 3.375 GM/50 ML PRE-DOCKED IVPB SCH ×3 (02:38→17:25)
--- NOTE | 2016-10-15 07:10 | PN ---
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, Physician Chief Complaint: ID NO change clinically remains stable Low BP noted Zosyn and Gent - Current Medication List Current Medications: Active Medications Acetaminophen (Tylenol -) 650 mg PO Q8H PRN PRN Reason: FEVER OR PAIN Last Admin: 10/14/16 16:49 Dose: 650 mg Acetaminophen (Tylenol Suppository -) 650 mg IN Q6H PRN PRN Reason: FEVER OR PAIN Last Admin: 10/12/16 17:41 Dose: 650 mg Carbidopa/Levodopa (Sinemet 25/100 -) 1 each PO QID [facility] Last Admin: 10/14/16 22:26 Dose: 1 each Dutasteride (Avodart -) 0.5 mg PO DAILY [facility] Last Admin: 10/14/16 10:42 Dose: 0.5 mg Gentamicin Sulfate 120 mg/ (Sodium Chloride) 103 mls @ 100 mls/hr IVPB DAILY [facility] Last Admin: 10/14/16 11:48 Dose: 100 mls/hr Sodium Chloride (Normal Saline -) 1,000 mls @ 75 mls/hr IV ASDIR [facility] Last Admin: 10/14/16 20:51 Dose: 75 mls/hr Piperacillin Sod/Tazobactam Sod (Zosyn 3.375gm Ivpb (Pre-Docked)) 3.375 gm IVPB Q8H-IV SHADI PRN Reason: Protocol Last Admin: 10/15/16 02:38 Dose: 3.375 gm Solifenacin (Vesicare -) 10 mg PO DAILY [facility] Last Admin: 10/14/16 10:42 Dose: 10 mg Tamsulosin HCl (Flomax -) 0.4 mg PO DAILY@0830 [facility] Last Admin: 10/14/16 08:35 Dose: 0.4 mg - Objective Vital Signs: Vital Signs Temperature 98.4 F 10/15/16 06:17 Pulse Rate 75 10/15/16 06:17 Respiratory Rate 20 10/15/16 06:17 Blood Pressure 112/54 10/15/16 06:17 O2 Sat by Pulse Oximetry (%) 99 10/14/16 22:45 Neck: Yes: WNL, Supple Cardiovascular: Yes: Regular Rate and Rhythm, S1, S2 Respiratory: Yes: Rales Gastrointestinal: Yes: Soft. No: Tenderness Edema: No Labs: CBC, BMP 10/13/16 06:30 10/13/16 06:30 INR, PTT INR 1.36 (0.82-1.09) H 09/30/16 06:00 Problem List - Problems (1) UTI (urinary tract infection) Code(s): N39.0 - URINARY TRACT INFECTION, SITE NOT SPECIFIED Qualifiers: Urinary tract infection type: acute cystitis Hematuria presence: with hematuria Qualified Code(s): N30.01 - Acute cystitis with hematuria (2) Urinary retention Code(s): R33.9 - RETENTION OF URINE, UNSPECIFIED (3) Multiple drug resistant organism (MDRO) culture positive Code(s): Z16.24 - RESISTANCE TO MULTIPLE ANTIBIOTICS Assessment/Plan Microbiology 10/11/16 17:55 Urine - Urine - Catheterized Urine Culture - Final Pseudomonas Aeruginosa 10/11/16 17:45 Blood - Peripheral Venous Blood Culture - Preliminary NO GROWTH OBTAINED AFTER 72 HOURS, INCUBATION TO CONTINUE FOR 2 DAYS. 10/11/16 17:40 Blood - Peripheral Venous Blood Culture - Preliminary NO GROWTH OBTAINED AFTER 72 HOURS, INCUBATION TO CONTINUE FOR 2 DAYS. Laboratory Tests 10/13/16 10/13/16 10/14/16 06:30 06:30 08:35 WBC 8.9 Hgb 9.0 L Hct 26.7 L Plt Count 499 H BUN 5 L Creatinine 0.5 L Creat Clearance w eGFR > 60 Gentamicin Trough < 0.2 Assessment Fevers to 103.5 on 10/11 UTI pseudomonas sensitive to current meds Plan Stop aminoglycoside Zosyn for another 24=48 HRS Suman KELLEY
[2016-10-15] MEDS: TAMSULOSIN HCL 0.4 MG CAP.ER.24H (FP) PO SCH (08:39)
[2016-10-15] MEDS ORDERED: PT OWN MED DRAWER 7, Y5N ONE (09:44)
[2016-10-15] MEDS: CARBIDOPA/LEVODOPA 25/100 TABLET (FP) PO SCH ×4 (09:50→22:05)
[2016-10-15] MEDS: DUTASTERIDE 0.5 MG CAP (FP) PO SCH (09:50)
[2016-10-15] MEDS: SOLIFENACIN SUCCINATE 5 MG TAB (FP) PO SCH (09:50)
[2016-10-15] MEDS: SODIUM CHLORIDE 1,000 ML IV SCH ×2 (09:52→22:04)
[2016-10-15] MEDS: GENTAMICIN INJECTION 120 MG in SODIUM CHLORIDE 100 ML IVPB SCH (10:11)
--- NOTE | 2016-10-15 11:11 | PN ---
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 (short form) - Note 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: Awake in NAD. No acute events overnight. Intake & Output 10/12/16 10/13/16 10/14/16 10/15/16 23:59 23:59 23:59 23:59 Intake Total 1590 2405 2355 Output Total 1750 2200 1400 400 Balance -160 205 955 -400 Weight 120 lb 4.8 oz 139 lb 6 oz 113 lb 2 oz Last Vital Signs Temp Pulse Resp BP Pulse Ox 98.4 F 75 20 112/54 99 10/15/16 06:17 10/15/16 06:17 10/15/16 06:17 10/15/16 06:17 10/14/16 22:45 Active Medications Acetaminophen (Tylenol -) 650 mg PO Q8H PRN PRN Reason: FEVER OR PAIN Last Admin: 10/14/16 16:49 Dose: 650 mg Acetaminophen (Tylenol Suppository -) 650 mg OR Q6H PRN PRN Reason: FEVER OR PAIN Last Admin: 10/12/16 17:41 Dose: 650 mg Carbidopa/Levodopa (Sinemet 25/100 -) 1 each PO QID [facility] Last Admin: 10/15/16 09:50 Dose: 1 each Dutasteride (Avodart -) 0.5 mg PO DAILY [facility] Last Admin: 10/15/16 09:50 Dose: 0.5 mg Gentamicin Sulfate 120 mg/ (Sodium Chloride) 103 mls @ 100 mls/hr IVPB DAILY [facility] Last Admin: 10/15/16 10:11 Dose: 100 mls/hr Sodium Chloride (Normal Saline -) 1,000 mls @ 75 mls/hr IV ASDIR [facility] Last Admin: 10/15/16 09:52 Dose: 75 mls/hr Piperacillin Sod/Tazobactam Sod (Zosyn 3.375gm Ivpb (Pre-Docked)) 3.375 gm IVPB Q8H-IV SHADI PRN Reason: Protocol Last Admin: 10/15/16 09:51 Dose: 3.375 gm Solifenacin (Vesicare -) 10 mg PO DAILY [facility] Last Admin: 10/15/16 09:50 Dose: 10 mg Tamsulosin HCl (Flomax -) 0.4 mg PO DAILY@0830 [facility] Last Admin: 10/15/16 08:39 Dose: 0.4 mg Gen: nonverbal, breathing nonlabored Heart: RRR Lung: decreased breath sounds at the bases Abd: soft, nontender Ext: no edema, contracted Laboratory Results - last 24 hr 10/14/16 08:35 Gentamicin Trough < 0.2 A/P UTI Resolved Septic Shock BPH Parkinson's Disease Dementia Altered Mental Status - ABX per ID - Aspiration precautions - DVT prophylaxis Dr Duncan
--- NOTE | 2016-10-15 13:10 | PN ---
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 (short form) - Note 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: No new complaints O/E Vital Signs Period Temp Pulse Resp BP Sys/Walker Pulse Ox Last 24 Hr 97.9 F-100.4 F 75-87 18-20 88-146/42-72 99-99 Heart regular Lungs clear Abd soft Ext no edema Current Medications Acetaminophen (Tylenol -) 650 mg PO Q8H PRN PRN Reason: FEVER OR PAIN Last Admin: 10/14/16 16:49 Dose: 650 mg Acetaminophen (Tylenol Suppository -) 650 mg [place] Q6H PRN PRN Reason: FEVER OR PAIN Last Admin: 10/12/16 17:41 Dose: 650 mg Carbidopa/Levodopa (Sinemet 25/100 -) 1 each PO QID [facility] Last Admin: 10/15/16 09:50 Dose: 1 each Dutasteride (Avodart -) 0.5 mg PO DAILY [facility] Last Admin: 10/15/16 09:50 Dose: 0.5 mg Gentamicin Sulfate 120 mg/ (Sodium Chloride) 103 mls @ 100 mls/hr IVPB DAILY [facility] Last Admin: 10/15/16 10:11 Dose: 100 mls/hr Sodium Chloride (Normal Saline -) 1,000 mls @ 75 mls/hr IV ASDIR [facility] Last Admin: 10/15/16 09:52 Dose: 75 mls/hr Piperacillin Sod/Tazobactam Sod (Zosyn 3.375gm Ivpb (Pre-Docked)) 3.375 gm IVPB Q8H-IV SHADI PRN Reason: Protocol Last Admin: 10/15/16 09:51 Dose: 3.375 gm Solifenacin (Vesicare -) 10 mg PO DAILY [facility] Last Admin: 10/15/16 09:50 Dose: 10 mg Tamsulosin HCl (Flomax -) 0.4 mg PO DAILY@0830 [facility] Last Admin: 10/15/16 08:39 Dose: 0.4 mg A&P Assessment/Plan (1) Septic shock -resolved -Cont ABX (2) UTI (urinary tract infection) Assessment/Plan: afebrile Code(s): N39.0 - URINARY TRACT INFECTION, SITE NOT SPECIFIED Qualifiers: Urinary tract infection type: acute cystitis Hematuria presence: with hematuria Qualified Code(s): N30.01 - Acute cystitis with hematuria (3) Acute metabolic encephalopathy Assessment/Plan: -lethargy improved Code(s): G93.41 - METABOLIC ENCEPHALOPATHY (4) Urinary retention Assessment/Plan: -patient s/p cystoscopy and TURP Code(s): R33.9 - RETENTION OF URINE, UNSPECIFIED (5) Hematuria Assessment/Plan: -resolved Code(s): R31.9 - HEMATURIA, UNSPECIFIED (6) Parkinson disease Assessment/Plan: -continue sinemet Code(s): G20 - PARKINSON'S DISEASE
[2016-10-15] MEDS: DEXTROSE 5%-NORMAL SALINE 1,000 ML IV SCH (19:35)
[2016-10-16] MEDS: PIPERACILLIN/TAZOB 3.375 GM/50 ML PRE-DOCKED IVPB SCH ×3 (03:20→17:15)
[2016-10-16] MEDS: SODIUM CHLORIDE 1,000 ML IV SCH ×2 (03:20→22:34)
[2016-10-16] MEDS: TAMSULOSIN HCL 0.4 MG CAP.ER.24H (FP) PO SCH (09:01)
[2016-10-16] MEDS ORDERED: PT OWN MED DRAWER 7, Y5N ONE (10:04)
[2016-10-16] MEDS: DUTASTERIDE 0.5 MG CAP (FP) PO SCH (10:10)
[2016-10-16] MEDS: CARBIDOPA/LEVODOPA 25/100 TABLET (FP) PO SCH ×4 (10:11→22:34)
[2016-10-16] MEDS: GENTAMICIN INJECTION 120 MG in SODIUM CHLORIDE 100 ML IVPB SCH (12:26)
--- NOTE | 2016-10-16 13:33 | PN ---
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 (short form) - Note 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: No complaints No fever or chills O/E Vital Signs Period Temp Pulse Resp BP Sys/Walker Pulse Ox Last 24 Hr 98.2 F-99.9 F 64-100 18-20 82-123/40-72 99 Heart regular Lungs clear Abd soft Ext no edema Current Medications Acetaminophen (Tylenol -) 650 mg PO Q8H PRN PRN Reason: FEVER OR PAIN Last Admin: 10/14/16 16:49 Dose: 650 mg Acetaminophen (Tylenol Suppository -) 650 mg [place] Q6H PRN PRN Reason: FEVER OR PAIN Last Admin: 10/12/16 17:41 Dose: 650 mg Carbidopa/Levodopa (Sinemet -) 1 each PO QID [facility] Last Admin: 10/16/16 10:11 Dose: 1 each Dutasteride (Avodart -) 0.5 mg PO DAILY [facility] Last Admin: 10/16/16 10:10 Dose: 0.5 mg Gentamicin Sulfate 120 mg/ (Sodium Chloride) 103 mls @ 100 mls/hr IVPB DAILY [facility] Last Admin: 10/16/16 12:26 Dose: 100 mls/hr Sodium Chloride (Normal Saline -) 1,000 mls @ 75 mls/hr IV ASDIR [facility] Last Admin: 10/16/16 03:20 Dose: 75 mls/hr Piperacillin Sod/Tazobactam Sod (Zosyn 3.375gm Ivpb (Pre-Docked)) 3.375 gm IVPB Q8H-IV SHADI PRN Reason: Protocol Last Admin: 10/16/16 10:11 Dose: 3.375 gm Tamsulosin HCl (Flomax -) 0.4 mg PO DAILY@0830 [facility] Last Admin: 10/16/16 09:01 Dose: 0.4 mg Laboratory Last Values WBC 8.9 K/mm3 (4.0-10.0) 10/13/16 06:30 RBC 2.96 M/mm3 (4.00-5.60) L 10/13/16 06:30 Hgb 9.0 GM/dL (11.7-16.9) L 10/13/16 06:30 Hct 26.7 % (35.4-49) L 10/13/16 06:30 MCV 90.2 fl (80-96) 10/13/16 06:30 MCHC 33.8 g/dl (32.0-35.9) 10/13/16 06:30 RDW 15.2 % (11.9-15.9) 10/13/16 06:30 Plt Count 499 K/MM3 (134-434) H 10/13/16 06:30 MPV 7.8 fl (7.5-11.1) 10/13/16 06:30 Neutrophils % 78.7 % (42.8-82.8) 10/13/16 06:30 Lymphocytes % 9.3 % (8-40) 10/13/16 06:30 Monocytes % 7.4 % (3.8-10.2) 10/13/16 06:30 Eosinophils % 3.8 % (0-4.5) D 10/13/16 06:30 Basophils % 0.8 % (0-2.0) 10/13/16 06:30 Band Neutrophils 8.7 % (0-10) 09/22/16 14:49 Platelet Estimate Adequate (NORMAL) 09/22/16 14:49 Platelet Comment No clumping noted 09/22/16 14:49 INR 1.36 (0.82-1.09) H 09/30/16 06:00 Sodium 138 mmol/L (136-145) 10/13/16 06:30 Potassium 4.2 mmol/L (3.5-5.1) 10/13/16 06:30 Chloride 103 mmol/L (98-107) 10/13/16 06:30 Carbon Dioxide 26 mmol/L (21-32) 10/13/16 06:30 Anion Gap 9 (8-16) 10/13/16 06:30 BUN 5 mg/dL (7-18) L 10/13/16 06:30 Creatinine 0.5 mg/dL (0.7-1.3) L 10/13/16 06:30 Creat Clearance w eGFR > 60 (>60) 10/13/16 06:30 Random Glucose 92 mg/dL (74-106) 10/13/16 06:30 Lactic Acid 0.883 mmol/L (0.4-2.0) 10/05/16 09:40 Calcium 7.6 mg/dL (8.5-10.1) L 10/13/16 06:30 Phosphorus 3.2 mg/dL (2.5-4.9) 10/12/16 07:00 Magnesium 2.0 mg/dL (1.8-2.4) 10/12/16 07:00 Total Bilirubin 0.4 mg/dL (0.2-1.0) 10/13/16 06:30 Direct Bilirubin 0.1 mg/dL (0.0-0.2) 09/27/16 05:10 AST 22 U/L (15-37) D 10/13/16 06:30 ALT 13 U/L (12-78) D 10/13/16 06:30 Alkaline Phosphatase 67 U/L (45-117) 10/13/16 06:30 Total Protein 5.2 g/dl (6.4-8.2) L 10/13/16 06:30 Albumin 1.7 g/dl (3.4-5.0) L 10/13/16 06:30 Vitamin B12 Cancelled 09/23/16 12:00 Folate 1002 ng/mL (>498) 09/24/16 06:45 Folate Hemolysate 324.7 ng/mL (Not Estab.) 09/24/16 06:45 TSH 1.43 uIU/ml (0.358-3.74) D 09/24/16 06:45 Urine Color Ltyellow 10/11/16 17:55 Urine Appearance Clear 10/11/16 17:55 Urine pH 7.0 (5.0-8.0) 10/11/16 17:55 Ur Specific [place] 1.020 (1.005-1.025) 10/11/16 17:55 Urine Protein Negative (NEGATIVE) 10/11/16 17:55 Urine Glucose (UA) Negative (NEGATIVE) 10/11/16 17:55 Urine Ketones Negative (NEGATIVE) 10/11/16 17:55 Urine Blood 1+ (NEGATIVE) H 10/11/16 17:55 Urine Nitrite Positive (NEGATIVE) 10/11/16 17:55 Urine Bilirubin Negative (NEGATIVE) 10/11/16 17:55 Urine Urobilinogen Negative E.U./dl (0.2-1.0) 10/11/16 17:55 Ur Leukocyte Esterase 1+ (NEGATIVE) H 10/11/16 17:55 Urine RBC 10 /hpf (0-3) 10/11/16 17:55 Urine WBC 43 /hpf (3-5) 10/11/16 17:55 Ur Epithelial Cells Rare /hpf (FEW) 10/11/16 17:55 Calcium Oxalate Crystal Few /hpf (NONE SEEN) 09/22/16 14:49 Urine Bacteria Rare /hpf (NEGATIVE) 09/29/16 09:30 Urine Mucus Many 10/11/16 17:55 Urine Yeast Rare 09/22/16 14:49 Stool Occult Blood Positive (NEGATIVE) 09/22/16 14:16 Gentamicin Trough < 0.2 ug/ml (0.0-2.0) 10/14/16 08:35 A&P Assessment/Plan (1) Septic shock -resolved -Cont ABX 2.Hypothermia Etiology is not clear Patient appers quite warm and comfortable Check Cortisol level and ICU eval as he is not a DNR (2) UTI (urinary tract infection) Assessment/Plan: afebrile Code(s): N39.0 - URINARY TRACT INFECTION, SITE NOT SPECIFIED Qualifiers: Urinary tract infection type: acute cystitis Hematuria presence: with hematuria Qualified Code(s): N30.01 - Acute cystitis with hematuria (3) Acute metabolic encephalopathy Assessment/Plan: -lethargy improved Code(s): G93.41 - METABOLIC ENCEPHALOPATHY (4) Urinary retention Assessment/Plan: -patient s/p cystoscopy and TURP Code(s): R33.9 - RETENTION OF URINE, UNSPECIFIED (5) Hematuria Assessment/Plan: -resolved Code(s): R31.9 - HEMATURIA, UNSPECIFIED (6) Parkinson disease Assessment/Plan: -continue sinemet Code(s): G20 - PARKINSON'S DISEASE
--- NOTE | 2016-10-16 13:39 | PN ---
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 (short form) - Note 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: In my previous note I had mentioned that the patient had hypothermia and will check Cortisol level and get ICU eval. It is a mistake and does not belong to this patient. He is not hypothermic and needs no investigations.
[2016-10-17] MEDS: PIPERACILLIN/TAZOB 3.375 GM/50 ML PRE-DOCKED IVPB SCH ×3 (02:50→17:52)
--- NOTE | 2016-10-17 06:32 | PN ---
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 (short form) - Note 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: PATIENT AROUSABLE BUT LETHARGIC . NO APPARENT RESP / CARDIAC DISTRESS. SEEN BY ID / AMINOGLYCOSIDES D/KRISTY. ++PSEUDOMONAS UTI . REMAINS ON ZOSYN PER ID. Laboratory Tests Selected Entries Selected Entries Laboratory Tests Laboratory Tests 10/13/16 10/13/16 06:30 06:30 WBC 8.9 RBC 2.96 L Hgb 9.0 L Hct 26.7 L Plt Count 499 H Sodium 138 Potassium 4.2 Chloride 103 Carbon Dioxide 26 Anion Gap 9 BUN 5 L Creatinine 0.5 L Creat Clearance w eGFR > 60 Random Glucose 92 Calcium 7.6 L Total Bilirubin 0.4 AST 22 D ALT 13 D Alkaline Phosphatase 67 Total Protein 5.2 L Albumin 1.7 L Laboratory Tests P/E<> PATIENT EASILY AROUSABLE BUT LETHARGIC. HEENT <> ++ MASKED FACIES OF PARKINSON'S COR <> S 1 S 2 / NO M NO G .HS DISTANCE CHEST <> NO RHONCHI / DECREASED BS AT BASES. ABD <>SOFT / NONTENDER EXT <> CONTRACTED LE / HEEL BANDAGE IN PLACE IMP : PSEUDOMONAS UTI SEPSIS / RESOLVED PARKINSON'S. BPH WITH OUTLET OBSTRUCTION / PRIOR HY OF PROSTATE CA GLEASONS 6 . FEMUR FX DEMENTIA Selected Entries 10/17/16 07:47 Temperature 99.8 F H Pulse Rate 77 Respiratory 18 Rate Blood Pressure 94/53 PLAN : CONTINUE ZOSYN PER ID. REPEAT LABS ORDERED. CONTINUE SINEMET SNF PLACEMENT WHEN STABLE.
[2016-10-17 08:50] LABS: BASOPHIL 0.7 % (0-2.0); EOSINOPHIL 2.7 % (0-4.5); MCH 30.7 pg (25.7-33.7); MCHC 34.1 g/dl (32.0-35.9); MEAN CELL VOLUME 90.2 fl (80-96); MEAN PLT VOLUME 7.6 fl (7.5-11.1); NEUTROPHILS 72.5 % (42.8-82.8); PLATELET COUNT 564 K/MM3 (134-434); RDW 14.9 % (11.9-15.9); WHITE BLOOD COUNT 7.1 K/mm3 (4.0-10.0)
[2016-10-17 09:15] LABS: ALBUMIN 1.8 g/dl (3.4-5.0); ANION GAP 10 (8-16); BILIRUBIN,TOTAL 0.4 mg/dL (0.2-1.0); CALCIUM 8.1 mg/dL (8.5-10.1); CO2 24 mmol/L (21-32); COCKROFT - GAULT 72.45; CREATININE 0.6 mg/dL (0.7-1.3); GLUCOSE,RANDOM 76 mg/dL (74-106); SGOT/AST 31 U/L (15-37); SGPT/ALT 21 U/L (12-78); TOT PROT 5.4 g/dl (6.4-8.2)
[2016-10-17 09:16] LABS: ALK PHOS 74 U/L (45-117)
[2016-10-17] MEDS: TAMSULOSIN HCL 0.4 MG CAP.ER.24H (FP) PO SCH (10:25)
[2016-10-17] MEDS: DUTASTERIDE 0.5 MG CAP (FP) PO SCH (10:25)
[2016-10-17] MEDS: CARBIDOPA/LEVODOPA 25/100 TABLET (FP) PO SCH ×4 (10:25→21:00)
--- NOTE | 2016-10-17 12:04 | PN ---
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 (short form) - Note 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: NAD more alert talking "leave me alone" Vital Signs Period Temp Pulse Resp BP Sys/Walker Pulse Ox Last 24 Hr 98.6 F-99.8 F 69-78 18-22 92-118/46-66 99 cor-rrr llungs clear abd soft,nt +groin rash +ochoa multiple ulcers on both feet CBC, BMP 10/17/16 08:25 10/17/16 08:25 Microbiology 10/11/16 17:40 Blood - Peripheral Venous Blood Culture - Final NO GROWTH AFTER 5 DAYS INCUBATION 10/11/16 17:45 Blood - Peripheral Venous Blood Culture - Final NO GROWTH AFTER 5 DAYS INCUBATION cxray clear a/p fevers-resolving pseudomonas UTI day #6 of 7 zosyn parkinsons disease s/p femur fracture-doing poorly would ask wound care to see for multiple foot wounds
--- NOTE | 2016-10-17 12:21 | PN ---
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 (short form) - Note 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: Awake in NAD. Slightly agitated. No acute events overnight. Intake & Output 10/14/16 10/15/16 10/16/16 10/17/16 23:59 23:59 23:59 23:59 Intake Total 2355 2078 1583 912 Output Total 1400 1100 900 400 Balance 955 978 683 512 Weight 113 lb 2 oz Last Vital Signs Temp Pulse Resp BP Pulse Ox 99.8 F H 77 18 94/53 99 10/17/16 07:47 10/17/16 07:47 10/17/16 07:47 10/17/16 07:47 10/16/16 21:00 Active Medications Acetaminophen (Tylenol -) 650 mg PO Q8H PRN PRN Reason: FEVER OR PAIN Last Admin: 10/14/16 16:49 Dose: 650 mg Acetaminophen (Tylenol Suppository -) 650 mg [place] Q6H PRN PRN Reason: FEVER OR PAIN Last Admin: 10/12/16 17:41 Dose: 650 mg Carbidopa/Levodopa (Sinemet 25/100 -) 1 each PO QID [facility] Last Admin: 10/17/16 10:25 Dose: 1 each Dutasteride (Avodart -) 0.5 mg PO DAILY [facility] Last Admin: 10/17/16 10:25 Dose: 0.5 mg Sodium Chloride (Normal Saline -) 1,000 mls @ 75 mls/hr IV ASDIR [facility] Last Admin: 10/16/16 22:34 Dose: 75 mls/hr Nystatin (Nystop Powder -) 1 applic TP DAILY [facility] Piperacillin Sod/Tazobactam Sod (Zosyn 3.375gm Ivpb (Pre-Docked)) 3.375 gm IVPB Q8H-IV SHADI PRN Reason: Protocol Last Admin: 10/17/16 10:25 Dose: 3.375 gm Tamsulosin HCl (Flomax -) 0.4 mg PO DAILY@0830 [facility] Last Admin: 10/17/16 10:25 Dose: 0.4 mg Gen: breathing nonlabored Heart: RRR Lung: decreased breath sounds at the bases Abd: soft, nontender Ext: no edema, contracted Laboratory Results - last 24 hr 10/17/16 10/17/16 08:25 08:25 WBC 7.1 RBC 3.05 L Hgb 9.4 L Hct 27.5 L MCV 90.2 MCHC 34.1 RDW 14.9 Plt Count 564 H MPV 7.6 Neutrophils % 72.5 Lymphocytes % 15.8 D Monocytes % 8.3 Eosinophils % 2.7 Basophils % 0.7 Sodium 133 L Potassium 4.3 Chloride 99 Carbon Dioxide 24 Anion Gap 10 BUN 8 D Creatinine 0.6 L Creat Clearance w eGFR > 60 Random Glucose 76 Calcium 8.1 L Total Bilirubin 0.4 AST 31 D ALT 21 D Alkaline Phosphatase 74 Total Protein 5.4 L Albumin 1.8 L A/P UTI Resolved Septic Shock BPH Parkinson's Disease Dementia Altered Mental Status - ABX per ID - Aspiration precautions - DVT prophylaxis Dr Duncan
[2016-10-17] MEDS: SODIUM CHLORIDE 1,000 ML IV SCH ×2 (13:57→21:01)
[2016-10-17] MEDS: NYSTATIN POWDER 100,000 UNITS/GM - 15 GM TOPICAL POWDER TP SCH (13:57)
--- NOTE | 2016-10-17 15:02 | CONSULT ---
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 - Alcohol/Substance Use Hx Alcohol Use: No - Smoking History Smoking history: Never smoked Have you smoked in the past 12 months: No Home Medications - Allergies Allergies/Adverse Reactions: Allergies Allergy/AdvReac Type Severity Reaction Status Date / Time No Known Allergies Allergy Verified 09/22/16 13:26 - Home Medications Home Medications: Ambulatory Orders Carbidopa/Levodopa 25/100 [Sinemet 25/100 -] 1 each PO QID tablet 06/08/16 Solifenacin Succinate [Vesicare -] 10 mg PO DAILY 09/22/16 Physical Exam Vital Signs: Vital Signs Temperature 99.8 F H 10/17/16 07:47 Pulse Rate 77 10/17/16 07:47 Respiratory Rate 18 10/17/16 07:47 Blood Pressure 94/53 10/17/16 07:47 O2 Sat by Pulse Oximetry (%) 99 10/16/16 21:00 Labs: CBC, BMP 10/17/16 08:25 10/17/16 08:25 Assessment/Plan Vascular Surgery 81 yo M hx BPH, Parkinsons presents with worsening weakness and altered mental status for the past month. As per family, he is AAOx3 at baseline, but lately he has been confused. When he was first discharged from rehab, he was not this confused, but has steadily gotten worse. His mental status waxes and wanes. He is alert at times. Family gave most of medical history, as patient was altered, not answering questions. Of note, he usually has a vigorous appetite, which has been significantly decreased lately. Called to evaluate bilateral foot wounds. PE Head - nc/aT Lungs - CTA heart - RRR abd - soft,nt,nd ext - right lateral foot ulcer. Palpable DP and PT pulses. Left lateral foot blisters x2 Palpable DP and PT pulses. A/P 81 year old , contracted with bl lower ext ulcers/blisters. 1. Heel pads ordered. 2. Santyl to right lateral foot ulcer daily. Dejon Stanley DO
[2016-10-17] MEDS ORDERED: PT OWN MED DRAWER 7, Y5N ONE ×3 (17:38→18:02)
[2016-10-17] MEDS: COLLAGENASE CLOSTRIDIUM HIST. 30 GRAMS TUBE TP SCH (17:59)
[2016-10-18] MEDS: PIPERACILLIN/TAZOB 3.375 GM/50 ML PRE-DOCKED IVPB SCH ×2 (01:19→10:17)
[2016-10-18] MEDS: SODIUM CHLORIDE 1,000 ML IV SCH ×2 (05:01→22:03)
[2016-10-18] MEDS: TAMSULOSIN HCL 0.4 MG CAP.ER.24H (FP) PO SCH (10:16)
[2016-10-18] MEDS: COLLAGENASE CLOSTRIDIUM HIST. 30 GRAMS TUBE TP SCH (10:16)
[2016-10-18] MEDS: CARBIDOPA/LEVODOPA 25/100 TABLET (FP) PO SCH ×4 (10:16→22:04)
[2016-10-18] MEDS: DUTASTERIDE 0.5 MG CAP (FP) PO SCH (10:16)
[2016-10-18] MEDS: NYSTATIN POWDER 100,000 UNITS/GM - 15 GM TOPICAL POWDER TP SCH (10:17)
--- NOTE | 2016-10-18 10:51 | PN ---
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 (short form) - Note 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: NAD much more alert talking today Vital Signs Period Temp Pulse Resp BP Sys/Walker Pulse Ox Last 24 Hr 96.7 F-98.6 F 72-79 16-20 97-111/51-58 98 cor-rrr lungs clear abd soft,nt ext contracted CBC, BMP 10/17/16 08:25 10/17/16 08:25 cxray clear a/p fevers-resolved pseudomonas UTI day #7 of 7 zosyn parkinsons disease s/p femur fracture-doing poorly d/c zosyn wound care to legs please call back if needed
--- NOTE | 2016-10-18 13:45 | PN ---
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, Physician Chief Complaint: Unable to obtain today, however patient is awake and much more interactive. - Current Medication List Current Medications: Active Medications Acetaminophen (Tylenol -) 650 mg PO Q8H PRN PRN Reason: FEVER OR PAIN Last Admin: 10/14/16 16:49 Dose: 650 mg Acetaminophen (Tylenol Suppository -) 650 mg [place] Q6H PRN PRN Reason: FEVER OR PAIN Last Admin: 10/12/16 17:41 Dose: 650 mg Carbidopa/Levodopa (Sinemet 25/100 -) 1 each PO QID [facility] Last Admin: 10/18/16 10:16 Dose: 1 each Collagenase (Santyl -) 1 applic TP DAILY [facility] Last Admin: 10/18/16 10:16 Dose: 1 applic Dutasteride (Avodart -) 0.5 mg PO DAILY [facility] Last Admin: 10/18/16 10:16 Dose: 0.5 mg Sodium Chloride (Normal Saline -) 1,000 mls @ 75 mls/hr IV ASDIR [facility] Last Admin: 10/18/16 05:01 Dose: 75 mls/hr Nystatin (Nystop Powder -) 1 applic TP DAILY [facility] Last Admin: 10/18/16 10:17 Dose: 1 applic Tamsulosin HCl (Flomax -) 0.4 mg PO DAILY@0830 [facility] Last Admin: 10/18/16 10:16 Dose: 0.4 mg - Objective Vital Signs: Vital Signs Temperature 97.4 F L 10/18/16 06:06 Pulse Rate 79 10/18/16 06:06 Respiratory Rate 18 10/18/16 06:06 Blood Pressure 111/58 10/18/16 06:06 O2 Sat by Pulse Oximetry (%) 98 10/17/16 21:00 Constitutional: Yes: No Distress, Calm, Thin Cardiovascular: Yes: Regular Rate and Rhythm. No: Gallop, Murmur, Rub Respiratory: Yes: Regular, CTA Bilaterally. No: Rales, Rhonchi, Wheezes Gastrointestinal: Yes: Normal Bowel Sounds, Soft. No: Distention, Tenderness Extremities: Yes: WNL Edema: No Labs: CBC, BMP 10/17/16 08:25 10/17/16 08:25 INR, PTT INR 1.36 (0.82-1.09) H 09/30/16 06:00 Problem List - Problems (1) Septic shock Code(s): A41.9 - SEPSIS, UNSPECIFIED ORGANISM R65.21 - SEVERE SEPSIS WITH SEPTIC SHOCK (2) UTI (urinary tract infection) Code(s): N39.0 - URINARY TRACT INFECTION, SITE NOT SPECIFIED Qualifiers: Urinary tract infection type: acute cystitis Hematuria presence: with hematuria Qualified Code(s): N30.01 - Acute cystitis with hematuria (3) Acute metabolic encephalopathy Code(s): G93.41 - METABOLIC ENCEPHALOPATHY (4) Urinary retention Code(s): R33.9 - RETENTION OF URINE, UNSPECIFIED (5) Hematuria Code(s): R31.9 - HEMATURIA, UNSPECIFIED (6) Parkinson disease Code(s): G20 - PARKINSON'S DISEASE Assessment/Plan (1) Septic shock -secondary to wounds -resolved -monitor off antibiotics -if does well, plan for discharge tomorrow (2) UTI (urinary tract infection) Assessment/Plan: -appreciate ID assistance -treated Code(s): N39.0 - URINARY TRACT INFECTION, SITE NOT SPECIFIED Qualifiers: Urinary tract infection type: acute cystitis Hematuria presence: with hematuria Qualified Code(s): N30.01 - Acute cystitis with hematuria (3) Acute metabolic encephalopathy Assessment/Plan: -resolved -patient back to baseline Code(s): G93.41 - METABOLIC ENCEPHALOPATHY (4) Urinary retention Assessment/Plan: -reconsult urology for possible ochoa removal Code(s): R33.9 - RETENTION OF URINE, UNSPECIFIED (5) Hematuria Assessment/Plan: -resolved -urology following Code(s): R31.9 - HEMATURIA, UNSPECIFIED (6) Parkinson disease Assessment/Plan: -appreciate neurology assistance -continue sinemet Code(s): G20 - PARKINSON'S DISEASE Dispo -possible discharge tomorrow - informed, however unhappy about possibility of discharge tomorrow
[2016-10-19 07:58] LABS: BASOPHIL 0.6 % (0-2.0); EOSINOPHIL 2.3 % (0-4.5); MCH 30.7 pg (25.7-33.7); MCHC 34.1 g/dl (32.0-35.9); MEAN CELL VOLUME 90.1 fl (80-96); MEAN PLT VOLUME 7.4 fl (7.5-11.1); NEUTROPHILS 69.1 % (42.8-82.8); PLATELET COUNT 491 K/MM3 (134-434); RDW 14.8 % (11.9-15.9); WHITE BLOOD COUNT 6.2 K/mm3 (4.0-10.0)
[2016-10-19 08:31] LABS: COCKROFT - GAULT 72.45; CREATININE 0.6 mg/dL (0.7-1.3); MAGNESIUM 1.9 mg/dL (1.8-2.4); PHOSPHOROUS 2.7 mg/dL (2.5-4.9)
[2016-10-19] MEDS: TAMSULOSIN HCL 0.4 MG CAP.ER.24H (FP) PO SCH (08:40)
--- NOTE | 2016-10-19 09:20 | PN ---
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 (short form) - Note 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: Awake in NAD. No acute events overnight. Afebrile. Intake & Output 10/16/16 10/17/16 10/18/16 10/19/16 23:59 23:59 23:59 23:59 Intake Total 1583 2062 1750 1000 Output Total 900 3000 2400 700 Balance 683 -938 -650 300 Last Vital Signs Temp Pulse Resp BP Pulse Ox 99.5 F 90 20 113/61 97 10/19/16 06:00 10/19/16 06:00 10/19/16 06:00 10/19/16 06:00 10/18/16 21:00 Active Medications Acetaminophen (Tylenol -) 650 mg PO Q8H PRN PRN Reason: FEVER OR PAIN Last Admin: 10/14/16 16:49 Dose: 650 mg Acetaminophen (Tylenol Suppository -) 650 mg [place] Q6H PRN PRN Reason: FEVER OR PAIN Last Admin: 10/12/16 17:41 Dose: 650 mg Carbidopa/Levodopa (Sinemet 25/100 -) 1 each PO QID [facility] [place] Last Admin: 10/18/16 22:04 Dose: 1 each Collagenase (Santyl -) 1 applic TP DAILY [facility] Last Admin: 10/18/16 10:16 Dose: 1 applic Dutasteride (Avodart -) 0.5 mg PO DAILY [facility] [place] Last Admin: 10/18/16 10:16 Dose: 0.5 mg Sodium Chloride (Normal Saline -) 1,000 mls @ 75 mls/hr IV ASDIR [facility] [place] Last Admin: 10/18/16 22:03 Dose: 75 mls/hr Nystatin (Nystop Powder -) 1 applic TP DAILY [facility] [place] Last Admin: 10/18/16 10:17 Dose: 1 applic Tamsulosin HCl (Flomax -) 0.4 mg PO DAILY@0830 [facility] [place] Last Admin: 10/19/16 08:40 Dose: 0.4 mg Gen: breathing nonlabored Heart: RRR Lung: decreased breath sounds at the bases Abd: soft, nontender Ext: no edema, contracted A/P UTI Resolved Septic Shock BPH Parkinson's Disease Dementia Altered Mental Status - Off ABX per ID - Aspiration precautions - DVT prophylaxis - O2 as needed - No Pulmonary contraindication for D/C planning Dr Duncan
[2016-10-19] MEDS: CARBIDOPA/LEVODOPA 25/100 TABLET (FP) PO SCH ×4 (10:25→21:17)
[2016-10-19] MEDS: DUTASTERIDE 0.5 MG CAP (FP) PO SCH (10:25)
[2016-10-19] MEDS: COLLAGENASE CLOSTRIDIUM HIST. 30 GRAMS TUBE TP SCH (10:26)
[2016-10-19] MEDS: NYSTATIN POWDER 100,000 UNITS/GM - 15 GM TOPICAL POWDER TP SCH (10:26)
--- NOTE | 2016-10-19 13:46 | PN ---
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, DIABETES SPECIALIST - Note 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: Selected Entries 10/17/16 10/17/16 10/18/16 15:29 18:56 06:06 Breakfast 25% Lunch Supper 25% Temperature 97.4 F L 10/18/16 10/18/16 10/18/16 15:37 16:40 19:00 Breakfast 25% Lunch 25% Supper 50% Temperature 98.2 F 10/18/16 10/19/16 10/19/16 22:00 06:00 09:51 Breakfast 25% Lunch Supper Temperature 97.8 F 99.5 F Counseled pt's on encouraging sips of Ensure throughout the day. Pending d/c.
--- NOTE | 2016-10-19 16:15 | PN ---
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, Physician Chief Complaint: Unable to obtain today, patient awake and mumbles - Current Medication List Current Medications: Active Medications Acetaminophen (Tylenol -) 650 mg PO Q8H PRN PRN Reason: FEVER OR PAIN Last Admin: 10/14/16 16:49 Dose: 650 mg Acetaminophen (Tylenol Suppository -) 650 mg SD Q6H PRN PRN Reason: FEVER OR PAIN Last Admin: 10/12/16 17:41 Dose: 650 mg Carbidopa/Levodopa (Sinemet 25/100 -) 1 each PO QID [facility] Last Admin: 10/19/16 14:59 Dose: 1 each Collagenase (Santyl -) 1 applic TP DAILY [facility] Last Admin: 10/19/16 10:26 Dose: 1 applic Dutasteride (Avodart -) 0.5 mg PO DAILY [facility] Last Admin: 10/19/16 10:25 Dose: 0.5 mg Sodium Chloride (Normal Saline -) 1,000 mls @ 75 mls/hr IV ASDIR [facility] Last Admin: 10/18/16 22:03 Dose: 75 mls/hr Nystatin (Nystop Powder -) 1 applic TP DAILY [facility] Last Admin: 10/19/16 10:26 Dose: 1 applic Tamsulosin HCl (Flomax -) 0.4 mg PO DAILY@0830 [facility] Last Admin: 10/19/16 08:40 Dose: 0.4 mg - Objective Vital Signs: Vital Signs Temperature 97.9 F 10/19/16 14:11 Pulse Rate 84 10/19/16 14:11 Respiratory Rate 16 10/19/16 14:11 Blood Pressure 102/70 10/19/16 14:11 O2 Sat by Pulse Oximetry (%) 97 10/18/16 21:00 Constitutional: Yes: No Distress, Calm, Thin Cardiovascular: Yes: Regular Rate and Rhythm. No: Gallop, Murmur, Rub Respiratory: Yes: Regular, CTA Bilaterally. No: Rales, Rhonchi, Wheezes Gastrointestinal: Yes: Normal Bowel Sounds, Soft. No: Distention, Tenderness Extremities: Yes: WNL Edema: No Labs: CBC, BMP 10/19/16 06:30 10/19/16 06:30 INR, PTT INR 1.36 (0.82-1.09) H 09/30/16 06:00 Problem List - Problems (1) Septic shock Code(s): A41.9 - SEPSIS, UNSPECIFIED ORGANISM R65.21 - SEVERE SEPSIS WITH SEPTIC SHOCK (2) UTI (urinary tract infection) Code(s): N39.0 - URINARY TRACT INFECTION, SITE NOT SPECIFIED Qualifiers: Urinary tract infection type: acute cystitis Hematuria presence: with hematuria Qualified Code(s): N30.01 - Acute cystitis with hematuria (3) Acute metabolic encephalopathy Code(s): G93.41 - METABOLIC ENCEPHALOPATHY (4) Urinary retention Code(s): R33.9 - RETENTION OF URINE, UNSPECIFIED (5) Hematuria Code(s): R31.9 - HEMATURIA, UNSPECIFIED (6) Parkinson disease Code(s): G20 - PARKINSON'S DISEASE Assessment/Plan (1) Septic shock -resolved (2) UTI (urinary tract infection) Assessment/Plan: -appreciate ID assistance -treated Code(s): N39.0 - URINARY TRACT INFECTION, SITE NOT SPECIFIED Qualifiers: Urinary tract infection type: acute cystitis Hematuria presence: with hematuria Qualified Code(s): N30.01 - Acute cystitis with hematuria (3) Acute metabolic encephalopathy Assessment/Plan: -resolved -patient back to baseline Code(s): G93.41 - METABOLIC ENCEPHALOPATHY (4) Urinary retention Assessment/Plan: -urology asked to evaluate ochoa -awaiting recommendations Code(s): R33.9 - RETENTION OF URINE, UNSPECIFIED (5) Hematuria Assessment/Plan: -resolved -urology following Code(s): R31.9 - HEMATURIA, UNSPECIFIED (6) Parkinson disease Assessment/Plan: -appreciate neurology assistance -continue sinemet Code(s): G20 - PARKINSON'S DISEASE Dispo -discharge pending urology recommendations
[2016-10-19] MEDS: SODIUM CHLORIDE 1,000 ML IV SCH (21:17)
[2016-10-20 07:55] LABS: BASOPHIL 0.8 % (0-2.0); MCH 30.3 pg (25.7-33.7); MCHC 33.8 g/dl (32.0-35.9); MEAN CELL VOLUME 89.6 fl (80-96); MEAN PLT VOLUME 7.6 fl (7.5-11.1); NEUTROPHILS 70.2 % (42.8-82.8); PLATELET COUNT 498 K/MM3 (134-434); RDW 15.4 % (11.9-15.9); WHITE BLOOD COUNT 6.3 K/mm3 (4.0-10.0)
[2016-10-20 08:18] LABS: COCKROFT - GAULT 86.94; CREATININE 0.5 mg/dL (0.7-1.3); MAGNESIUM 1.8 mg/dL (1.8-2.4)
[2016-10-20] MEDS: TAMSULOSIN HCL 0.4 MG CAP.ER.24H (FP) PO SCH (08:35)
[2016-10-20] MEDS ORDERED: PT OWN MED DRAWER 7, Y5N ONE (10:12)
[2016-10-20] MEDS: DUTASTERIDE 0.5 MG CAP (FP) PO SCH (10:15)
[2016-10-20] MEDS: CARBIDOPA/LEVODOPA 25/100 TABLET (FP) PO SCH ×3 (10:15→17:32)
[2016-10-20] MEDS: NYSTATIN POWDER 100,000 UNITS/GM - 15 GM TOPICAL POWDER TP SCH (10:15)
--- NOTE | 2016-10-20 12:32 | PN ---
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, Physician Chief Complaint: Unable to obtain today. patient awake and attempts communication but only mumbles and smiles. - Current Medication List Current Medications: Active Medications Acetaminophen (Tylenol -) 650 mg PO Q8H PRN PRN Reason: FEVER OR PAIN Last Admin: 10/14/16 16:49 Dose: 650 mg Acetaminophen (Tylenol Suppository -) 650 mg [place] Q6H PRN PRN Reason: FEVER OR PAIN Last Admin: 10/12/16 17:41 Dose: 650 mg Carbidopa/Levodopa (Sinemet 25/100 -) 1 each PO QID [facility] Last Admin: 10/20/16 10:15 Dose: 1 each Collagenase (Santyl -) 1 applic TP DAILY [facility] Last Admin: 10/19/16 10:26 Dose: 1 applic Dutasteride (Avodart -) 0.5 mg PO DAILY [facility] Last Admin: 10/20/16 10:15 Dose: 0.5 mg Sodium Chloride (Normal Saline -) 1,000 mls @ 75 mls/hr IV ASDIR [facility] Last Admin: 10/19/16 21:17 Dose: Not Given Nystatin (Nystop Powder -) 1 applic TP DAILY [facility] Last Admin: 10/20/16 10:15 Dose: 1 applic Tamsulosin HCl (Flomax -) 0.4 mg PO DAILY@0830 [facility] Last Admin: 10/20/16 08:35 Dose: 0.4 mg - Objective Vital Signs: Vital Signs Temperature 97.5 F L 10/20/16 08:20 Pulse Rate 78 10/20/16 08:20 Respiratory Rate 20 10/20/16 08:20 Blood Pressure 110/58 10/20/16 08:20 O2 Sat by Pulse Oximetry (%) 97 10/19/16 21:00 Constitutional: Yes: No Distress, Calm, Thin Cardiovascular: Yes: Regular Rate and Rhythm. No: Gallop, Murmur, Rub Respiratory: Yes: Regular, CTA Bilaterally. No: Rales, Rhonchi, Wheezes Gastrointestinal: Yes: Normal Bowel Sounds, Soft. No: Distention, Tenderness Extremities: Yes: WNL Edema: No Labs: CBC, BMP 10/20/16 06:30 10/20/16 06:30 INR, PTT INR 1.36 (0.82-1.09) H 09/30/16 06:00 Problem List - Problems (1) Septic shock Code(s): A41.9 - SEPSIS, UNSPECIFIED ORGANISM R65.21 - SEVERE SEPSIS WITH SEPTIC SHOCK (2) UTI (urinary tract infection) Code(s): N39.0 - URINARY TRACT INFECTION, SITE NOT SPECIFIED Qualifiers: Urinary tract infection type: acute cystitis Hematuria presence: with hematuria Qualified Code(s): N30.01 - Acute cystitis with hematuria (3) Acute metabolic encephalopathy Code(s): G93.41 - METABOLIC ENCEPHALOPATHY (4) Urinary retention Code(s): R33.9 - RETENTION OF URINE, UNSPECIFIED (5) Hematuria Code(s): R31.9 - HEMATURIA, UNSPECIFIED (6) Parkinson disease Code(s): G20 - PARKINSON'S DISEASE Assessment/Plan (1) Septic shock -resolved (2) UTI (urinary tract infection) Assessment/Plan: -appreciate ID assistance -treated Code(s): N39.0 - URINARY TRACT INFECTION, SITE NOT SPECIFIED Qualifiers: Urinary tract infection type: acute cystitis Hematuria presence: with hematuria Qualified Code(s): N30.01 - Acute cystitis with hematuria (3) Acute metabolic encephalopathy Assessment/Plan: -resolved -patient back to baseline Code(s): G93.41 - METABOLIC ENCEPHALOPATHY (4) Urinary retention Assessment/Plan: -urology asked to evaluate ochoa -awaiting recommendations -if removes, will need to monitor for 24 hours to assure able to void -if ochoa remains can discharge today Code(s): R33.9 - RETENTION OF URINE, UNSPECIFIED (5) Hematuria Assessment/Plan: -resolved -urology following Code(s): R31.9 - HEMATURIA, UNSPECIFIED (6) Parkinson disease Assessment/Plan: -appreciate neurology assistance -continue sinemet Code(s): G20 - PARKINSON'S DISEASE Dispo -spoke with about discharge plan today
[2016-10-20] MEDS: COLLAGENASE CLOSTRIDIUM HIST. 30 GRAMS TUBE TP SCH (13:36)
--- NOTE | 2016-10-20 13:45 | PN ---
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 (short form) - Note 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: lethargic, contracted, trials at voided failed, s/p tuvp will need urodynamics in two weeks at office in [address] [place] [address] 10/31/16 urologically ok for d/c on macrobid 100 mg po bid, ochoa to leg bag, vitamin c 500 qhs will have to fill bladder and watch void for further evaluation during urodynamic study. urologically ok for d/c. Problem List - Problems (1) Altered mental status Code(s): R41.82 - ALTERED MENTAL STATUS, UNSPECIFIED Qualifiers: Altered mental status type: unspecified Qualified Code(s): R41.82 - Altered mental status, unspecified (2) Multiple drug resistant organism (MDRO) culture positive Code(s): Z16.24 - RESISTANCE TO MULTIPLE ANTIBIOTICS (3) Parkinson disease Code(s): G20 - PARKINSON'S DISEASE (4) Septic shock Code(s): A41.9 - SEPSIS, UNSPECIFIED ORGANISM R65.21 - SEVERE SEPSIS WITH SEPTIC SHOCK (5) UTI (urinary tract infection) Code(s): N39.0 - URINARY TRACT INFECTION, SITE NOT SPECIFIED Qualifiers: Urinary tract infection type: acute cystitis Hematuria presence: with hematuria Qualified Code(s): N30.01 - Acute cystitis with hematuria (6) Urinary retention Code(s): R33.9 - RETENTION OF URINE, UNSPECIFIED (7) Acute metabolic encephalopathy Code(s): G93.41 - METABOLIC ENCEPHALOPATHY (8) Fracture of trochanter of left femur Code(s): S72.102A - UNSP TROCHANTERIC FRACTURE OF LEFT FEMUR, INIT FOR CLOS FX Qualifiers: Encounter type: initial encounter Fracture type: closed Qualified Code(s): S72.102A - Unspecified trochanteric fracture of left femur, initial encounter for closed fracture (9) Hematuria Code(s): R31.9 - HEMATURIA, UNSPECIFIED (10) Maxillary sinusitis, acute Code(s): J01.00 - ACUTE MAXILLARY SINUSITIS, UNSPECIFIED (11) Pleural effusion Code(s): J90 - PLEURAL EFFUSION, NOT ELSEWHERE CLASSIFIED (12) Ribs, multiple fractures Code(s): S22.49XA - MULTIPLE FRACTURES OF RIBS, UNSP SIDE, INIT FOR CLOS FX Qualifiers: Encounter type: initial encounter Fracture type: closed Laterality : left Qualified Code(s): S22.42XA - Multiple fractures of ribs, left side, initial encounter for closed fracture (13) Upper respiratory infection Code(s): J06.9 - ACUTE UPPER RESPIRATORY INFECTION, UNSPECIFIED Qualifiers: URI type: unspecified viral URI Qualified Code(s): J06.9 - Acute upper respiratory infection, unspecified; B97.89 - Other viral agents as the cause of diseases classified elsewhere
--- NOTE | 2016-10-20 13:48 | PN ---
TAWANNA Cordero Note Chief Complaint: lethargic, contracted, multiple trials at voiding failed - Objective Vital Signs: Vital Signs Temperature 97.5 F L 10/20/16 08:20 Pulse Rate 78 10/20/16 08:20 Respiratory Rate 20 10/20/16 08:20 Blood Pressure 110/58 10/20/16 08:20 O2 Sat by Pulse Oximetry (%) 97 10/19/16 21:00 Labs/Additional Data: CBC, BMP 10/20/16 06:30 10/20/16 06:30 INR, PTT INR 1.36 (0.82-1.09) H 09/30/16 06:00 Problem List - Problems (1) Altered mental status Code(s): R41.82 - ALTERED MENTAL STATUS, UNSPECIFIED Qualifiers: Altered mental status type: unspecified Qualified Code(s): R41.82 - Altered mental status, unspecified (2) Multiple drug resistant organism (MDRO) culture positive Code(s): Z16.24 - RESISTANCE TO MULTIPLE ANTIBIOTICS (3) Parkinson disease Code(s): G20 - PARKINSON'S DISEASE (4) Septic shock Code(s): A41.9 - SEPSIS, UNSPECIFIED ORGANISM R65.21 - SEVERE SEPSIS WITH SEPTIC SHOCK (5) UTI (urinary tract infection) Code(s): N39.0 - URINARY TRACT INFECTION, SITE NOT SPECIFIED Qualifiers: Urinary tract infection type: acute cystitis Hematuria presence: with hematuria Qualified Code(s): N30.01 - Acute cystitis with hematuria (6) Urinary retention Code(s): R33.9 - RETENTION OF URINE, UNSPECIFIED (7) Acute metabolic encephalopathy Code(s): G93.41 - METABOLIC ENCEPHALOPATHY (8) Fracture of trochanter of left femur Code(s): S72.102A - UNSP TROCHANTERIC FRACTURE OF LEFT FEMUR, INIT FOR CLOS FX Qualifiers: Encounter type: initial encounter Fracture type: closed Qualified Code(s): S72.102A - Unspecified trochanteric fracture of left femur, initial encounter for closed fracture (9) Hematuria Code(s): R31.9 - HEMATURIA, UNSPECIFIED (10) Maxillary sinusitis, acute Code(s): J01.00 - ACUTE MAXILLARY SINUSITIS, UNSPECIFIED (11) Pleural effusion Code(s): J90 - PLEURAL EFFUSION, NOT ELSEWHERE CLASSIFIED (12) Ribs, multiple fractures Code(s): S22.49XA - MULTIPLE FRACTURES OF RIBS, UNSP SIDE, INIT FOR CLOS FX Qualifiers: Encounter type: initial encounter Fracture type: closed Laterality : left Qualified Code(s): S22.42XA - Multiple fractures of ribs, left side, initial encounter for closed fracture (13) Upper respiratory infection Code(s): J06.9 - ACUTE UPPER RESPIRATORY INFECTION, UNSPECIFIED Qualifiers: URI type: unspecified viral URI Qualified Code(s): J06.9 - Acute upper respiratory infection, unspecified; B97.89 - Other viral agents as the cause of diseases classified elsewhere Assessment/Plan s/p tuvp with voiding dysfunction pt will need urodymanic studies scheduled on 10/31/16 at my office on [address] [address] at 12pm will need macrobid 100 mg po qhs , vitamin c 500 q hs, ochoa to leg bag, lotrisone to scrotum and penis bid, scrotal elevation urologically ok for d/c today
[2016-10-20] MEDS: SODIUM CHLORIDE 1,000 ML IV SCH (15:39)
--- NOTE | 2016-10-20 16:06 | DS ---
Physical Examination Vital Signs: Vital Signs Temperature 98.6 F 10/20/16 15:02 Pulse Rate 87 10/20/16 15:02 Respiratory Rate 18 10/20/16 15:02 Blood Pressure 100/89 10/20/16 15:02 O2 Sat by Pulse Oximetry (%) 97 10/19/16 21:00 Labs: CBC, BMP 10/20/16 06:30 10/20/16 06:30 Discharge Summary Reason For Visit: ALTERED MENTAL STATUS Current Active Problems Altered mental status (Acute) Multiple drug resistant organism (MDRO) culture positive (Acute) Parkinson disease (Acute) Septic shock (Acute) UTI (urinary tract infection) (Acute) Urinary retention (Acute) Hospital Course: (1) Septic shock Code(s): A41.9 - SEPSIS, UNSPECIFIED ORGANISM R65.21 - SEVERE SEPSIS WITH SEPTIC SHOCK (2) UTI (urinary tract infection) Code(s): N39.0 - URINARY TRACT INFECTION, SITE NOT SPECIFIED Qualifiers: Urinary tract infection type: acute cystitis Hematuria presence: with hematuria Qualified Code(s): N30.01 - Acute cystitis with hematuria (3) Acute metabolic encephalopathy Code(s): G93.41 - METABOLIC ENCEPHALOPATHY (4) Urinary retention Code(s): R33.9 - RETENTION OF URINE, UNSPECIFIED (5) Hematuria Code(s): R31.9 - HEMATURIA, UNSPECIFIED (6) Parkinson disease Code(s): G20 - PARKINSON'S DISEASE Mr Cullen is a pleasant 81 year old male with dementia who comes in with urinary retention and hematuria. He was admitted to the hospital. He was found to have a UTI and became septic. He was seen by ID and started on broad spectrum antibiotics. He improved and was able to undergo TURP. He became septic a second time and was restarted on antibiotics. He was found to have chronic wounds and these were treated. He improved and returned to baseline. He was unable to have his ochoa removed and he will be discharged back to the SNF with ochoa in place. He will have follow up with urology as an outpatient. 34 minutes spent in preparation of this discharge Condition: Stable - Instructions Diet, Activity, Other Instructions: pureed diet. continue PT at SNF Referrals: Jaya Miller MD [Primary Care Provider] - Lee Perry MD [Staff Physician] - Disposition: CUSTODIAL FACILITY - Home Medications Comprehensive Discharge Medication List: Ambulatory Orders Carbidopa/Levodopa [Sinemet -] 1 each PO QID tablet 06/08/16 Acetaminophen Suppository [Tylenol .Suppository -] 650 mg [place] Q6H PRN #30 supp.rect 10/20/16 Collagenase Clostridium Hist. [Santyl -] 1 applic TP DAILY tube 10/20/16 Dutasteride [Avodart] 0.5 mg PO DAILY cap 10/20/16 Nystatin Powder [Nystop Powder -] 1 applic TP DAILY applic 10/20/16 Tamsulosin HCl [Flomax -] 0.4 mg PO DAILY@0830 [facility] 10/20/16
[2016-10-20] MEDS: ACETAMINOPHEN 650 MG SUPP.RECT PR PRN (17:05)
[2016-10-20 19:18] VITALS: BP 108/64; PULSE 98; TEMP 98.6
== END 2016-10-20 19:09 | DRG 665 ==
LOC: JER 13:24 → JERBED 17:15 → J8W 20:18 → JICU 09-26 14:20 → J4S 09-27 21:12 → J8W 09-28 13:46
PROVIDERS: ADMIT Internal Medicine; ATTEND Internal Medicine
PROC: 0V507ZZ Destruction of Prostate, Via Natural or Artificial Opening (ICD-10-PCS; principal; 2016-10-02 13:30)
DX: N30.01 Acute cystitis with hematuria (principal); A41.9 Sepsis, unspecified organism; R65.21 Severe sepsis with septic shock; G92 Toxic encephalopathy; K62.5 Hemorrhage of anus and rectum; R64 Cachexia; Z68.1 Body mass index [BMI] 19.9 or less, adult; N40.1 Benign prostatic hyperplasia with lower urinary tract symptoms; R33.8 Other retention of urine; G20 Parkinson's disease; R41.82 Altered mental status, unspecified; B96.5 Pseudomonas (aeruginosa) (mallei) (pseudomallei) as the cause of diseases classified elsewhere; L97.519 Non-pressure chronic ulcer of other part of right foot with unspecified severity; D72.829 Elevated white blood cell count, unspecified; G31.83 Neurocognitive disorder with Lewy bodies
CPT/HCPCS: 36415; 70450-TC; 71010-TC; 74176-TC; 76775-TC; 76856-TC; 80048; 80053; 80076; 80170; 81003; 81015; 82272; 82607; 82747; 83605; 83735; 84100; 84443; 85014; 85025; 85027; 85610; 87040; 87070; 87077; 87086; 87186; 87205; 88305-TC; 93005; 93010; 94760; 99284-25; J1644